=== PATIENT | female | born 1960 | race Caucasian/White ===

== ENCOUNTER → 2021-03-21 14:05 | Outpatient (BNVA) | payer MEDICARE, SELFPAY | PROVIDERS: Family Provider Family Medicine; Visit Provider Podiatrist Foot & Ankle Surgery | DX: M19.072 Primary osteoarthritis, left ankle and foot (principal) | CPT/HCPCS: 73630 ==

== ENCOUNTER → 2022-01-20 11:09 | Outpatient (BNVA) | payer MEDICARE, SELFPAY | PROVIDERS: Family Provider Family Medicine; PCP Family Medicine; Referring Provider Nurse Practitioner Family; Visit Provider Orthopaedic Surgery | DX: M16.12 Unilateral primary osteoarthritis, left hip (principal); M25.552 Pain in left hip | CPT/HCPCS: 73502; 99204 ==

== ENCOUNTER → 2022-01-20 12:10 | Outpatient (BNVA) | payer MEDICARE, SELFPAY | PROVIDERS: Family Provider Family Medicine; PCP Family Medicine; Visit Provider Podiatrist Foot & Ankle Surgery | DX: E11.8 Type 2 diabetes mellitus with unspecified complications (principal); I73.9 Peripheral vascular disease, unspecified; L60.3 Nail dystrophy; E11.42 Type 2 diabetes mellitus with diabetic polyneuropathy | CPT/HCPCS: 11721 ==

== ENCOUNTER 2022-03-02 16:35 | Observation (INO) | payer MEDICARE, SELFPAY ==
[2022-02-18 11:20] VITALS: BMI 43.0
[2022-02-18 12:17] LABS: INR 0.96 (0.8-1.2)
[2022-02-18 12:30] LABS: Alanine Aminotransferase 11 U/L (0-33); Albumin Level 4.5 g/dL (3.5-5.2); Alkaline Phosphatase 146 U/L (35-105); Aspartate Amino Transferase 13 U/L (0-32); Blood Urea Nitrogen 14 mg/dL (8-23); Calcium 9.7 mg/dL (8.5-10.5); Carbon Dioxide 27 mmol/L (22-29); Chloride 98 mmol/L (98-107); Globulin 3.1 g/dL (1.3-4.6); Glomerular Filtration Rate 73.2 mL/min (90-130); Glucose 107 mg/dL (65-115); Osmolality Calculated 287 mOsm/kg (285-295); Sodium 138 mmol/L (136-145); Total Bilirubin 0.4 mg/dL (0.15-1.2); Total Protein 7.6 g/dL (6.6-8.7)
--- NOTE | 2022-02-18 16:01 | ANES.PREANE2 ---
Pre-Anesthetic Assessment Height/Weight: Height 1.52 m Weight 99.79 kg Operation Date: 03/02/22 11:10 Proposed Procedures p left total hip arthroplasty/85750,M16.12(Left) - Jesus Aaron MD Familial anesthetic complications: none Was Beta Estuardo taken within 24 hours: N/A Was Clonidine taken within 24 hours: N/A Social Tobacco (smokes liz and cig) and No alcohol Exam alert, oriented x 3 and regular rate & rhythm Airway Submandibular: within normal limits Cervical ROM: within normal limits Mallampati: Class II Dentition: chipped Comments: Comments: hoarseness Pulmonary Chronic Obstructive Pulmonary Disease and Sleep Apnea CV/HEM Hypertension alpha-GAL Metabolic Diabetes Mellitus and Morbid Obesity Musc/skel Osteoarthritis/DJD Neuropsych Anxiety, Depression and Neuropathy Anesthetic Plan ASA status: 3 Anesthesia: Regional (specify below) (SAB) Medications/Allergies Home Medications Medication Instructions Recorded Confirmed Last Taken Type albuterol sulfate 2.5 mg inhalation Q4H PRN 03/21/21 02/18/22 Unknown History Shortness Of Breath alprazolam 1 mg tablet 1 mg PO TID PRN Anxiety 03/21/21 02/18/22 Unknown History budesonide-formoterol HFA 160 2 puff inhalation BID 03/21/21 02/18/22 Unknown History mcg-4.5 mcg/actuation aerosol inhaler (Symbicort) bupropion HCl 150 mg tablet,12 hr 150 mg PO BID 03/21/21 02/18/22 Unknown History sustained-release chlorzoxazone 500 mg tablet 500 mg PO QID 03/21/21 02/18/22 Unknown History eszopiclone 3 mg tablet 3 mg PO DAILY 03/21/21 02/18/22 Unknown History fluticasone propionate 50 1 spray intranasal DAILY 03/21/21 02/18/22 Unknown History mcg/actuation nasal spray,suspension gabapentin 600 mg tablet 600 mg PO TID 03/21/21 02/18/22 Unknown History lisinopril 10 mg tablet 10 mg PO DAILY 03/21/21 02/18/22 Unknown History pravastatin 20 mg tablet 20 mg PO DAILY 03/21/21 02/18/22 Unknown History tiotropium bromide 2.5 2 puff inhalation DAILY 03/21/21 02/18/22 Unknown History mcg/actuation mist for inhalation (Spiriva Respimat) medical marijuana 04/17/21 01/20/22 Unknown History dicyclomine 10 mg capsule 10 mg PO QID 01/20/22 02/18/22 Unknown History naproxen 500 mg tablet 500 mg PO BID 01/20/22 02/18/22 Unknown History epinephrine 0.3 mg/0.3 mL 0.3 mg IM Q4H PRN Anaphylaxis 02/18/22 02/18/22 Unknown History injection, auto-injector lactulose 10 gram/15 mL oral 10 g PO DAILY PRN Constipation 02/18/22 02/18/22 Unknown History solution (Enulose) meclizine 12.5 mg tablet 12.5 mg PO TID PRN Dizziness 02/18/22 02/18/22 Unknown History suvorexant 10 mg tablet (Belsomra) 10 mg PO BEDTIME 02/18/22 02/18/22 Unknown History Allergies Allergy/AdvReac Type Severity Reaction Status Date / Time metronidazole Allergy Mild rash Verified 01/20/22 12:13 tramadol Allergy Mild Ears Ring Verified 01/20/22 12:13 and sees black spots Alpha-Gal Allergy ALGY-Anaphy Verified 02/18/22 11:08 (Idsgysjly-Corcp-9,3-Gala laxis Milk Containing Products Allergy ALGY-Difficulty Verified 02/18/22 11:08 Swallowing PFSH Anesthesia Social History Smoking and tobacco status: never smoked Data Anesthesia : 02/18/22 11:48 BMP 02/18/22 11:48 Sodium 138 Potassium 4.0 Chloride 98 Carbon Dioxide 27 BUN 14 Creatinine 0.8 Glucose 107 Calcium 9.7 Liver Function 02/18/22 Range/Units 11:48 Total Bilirubin 0.4 (0.15-1.2) mg/dL AST 13 (0-32) U/L ALT 11 (0-33) U/L Alkaline Phosphatase 146 H (35-105) U/L Albumin 4.5 (3.5-5.2) g/dL Coags 02/18/22 11:48 PT 13.10 INR 0.96 Cardiac Studies: No Data to Display
[2022-03-02] VITALS (14 sets, daily range): BP systolic 112–179; BP diastolic 58–118; PULSE 64–88; RESP 16–24; TEMP 36.2–36.6; O2SAT 94–98
--- NOTE | 2022-03-02 10:53 | ANES.PAUD2 ---
Pre-Anesthetic Update Pre-Anesthetic Assessment: Date of Surgery/Procedure: 03/02/22 Proposed Procedure: Operation Date: 03/02/22 12:15 Proposed Procedures p left total hip arthroplasty/99845,M16.12(Left) - Jesus Aaron MD Any changes to Pre-Anesthetic Assessment?: No Last Intake: > 8hrs Exam: Pre-Anes Outpt Exam: alert, oriented x 3, clear to auscultation bilaterally and regular rate & rhythm Cardiac Studies: No Data to Display
[2022-03-02] MEDS: sodium chloride 0.9% 1,000 ML 30 ML IV (11:19)
[2022-03-02] MEDS: acetaminophen 1,000 MG/100 ML PIGGYBACK 400 MG IV (11:20)
--- NOTE | 2022-03-02 12:34 | P.HP_ITS ---
Same Day Surgery H&P Indication for Procedure/HPI DATE OF PROCEDURE: March 02, 2022 CHIEF COMPLAINT/INDICATIONFOR SURGICAL PROCEDURE: Osteoarthritis left hip here for left total knee arthroplasty PREOP DIAGNOSIS: Osteoarthritis left hip PLANNED PROCEDURE: Operation Date: 03/02/22 12:15 Proposed Procedures p left total hip arthroplasty/83489,M16.12(Left) - Jesus Aaron MD Ms. Merritt is a 61-year-old female comes in with a 3-month history of progressive left hip pain. Patient states pain has progressively gotten worse to the point she is unable to walk more than 50 feet.? Spends majority of her time in her wheelchair.? Patient rates pain at 10/10 in clinic today.? She states she underwent left total knee arthroplasty in 2017 and has done very well with that.? She states she used very few pain medications and was off of her walker recommendations.? [place] .? She states the pain is unbearable and she is unable to ambulate.? She is referred here for evaluation and potential treatment Medications/Allergies* Home Medications Medication Instructions Recorded Confirmed Type albuterol sulfate 2.5 mg inhalation Q4H PRN 03/21/21 03/02/22 History Shortness Of Breath alprazolam 1 mg tablet 1 mg PO TID PRN Anxiety 03/21/21 03/02/22 History budesonide-formoterol HFA 160 2 puff inhalation BID 03/21/21 03/02/22 History mcg-4.5 mcg/actuation aerosol inhaler (Symbicort) bupropion HCl 150 mg tablet,12 hr 150 mg PO BID 03/21/21 03/02/22 History sustained-release chlorzoxazone 500 mg tablet 500 mg PO QID 03/21/21 03/02/22 History eszopiclone 3 mg tablet (Lunesta) 3 mg PO DAILY 03/21/21 03/02/22 History fluticasone propionate 50 1 spray intranasal DAILY 03/21/21 03/02/22 History mcg/actuation nasal spray,suspension gabapentin 600 mg tablet 600 mg PO TID 03/21/21 03/02/22 History lisinopril 10 mg tablet 10 mg PO DAILY 03/21/21 03/02/22 History pravastatin 20 mg tablet 20 mg PO DAILY 03/21/21 03/02/22 History tiotropium bromide 2.5 2 puff inhalation DAILY 03/21/21 03/02/22 History mcg/actuation mist for inhalation (Spiriva Respimat) medical marijuana 04/17/21 01/20/22 History dicyclomine 10 mg capsule 10 mg PO QID 01/20/22 03/02/22 History naproxen 500 mg tablet 500 mg PO BID 01/20/22 03/02/22 History epinephrine 0.3 mg/0.3 mL 0.3 mg IM Q4H PRN Anaphylaxis 02/18/22 02/18/22 History injection, auto-injector lactulose 10 gram/15 mL oral 10 g PO DAILY PRN Constipation 02/18/22 03/02/22 History solution (Enulose) suvorexant 10 mg tablet (Belsomra) 10 mg PO BEDTIME 02/18/22 02/18/22 History Allergies/Adverse Reactions Allergy/AdvReac Type Severity Reaction Status Date / Time metronidazole Allergy Mild rash Verified 01/20/22 12:13 tramadol Allergy Mild Ears Ring Verified 01/20/22 12:13 and sees black spots Alpha-Gal Allergy ALGY-Anaphy Verified 02/18/22 11:08 (Kxqzdtafs-Zmqen-7,3-Gala laxis Milk Containing Products Allergy ALGY-Difficulty Verified 02/18/22 11:08 Swallowing Current Medications: Generic Name Dose Route Start Last Admin Trade Name Freq PRN Reason Stop Dose Admin Sodium Chloride 1,000 mls @ 30 mls/hr 03/02/22 11:00 03/02/22 11:19 Sodium Chloride 0.9% IV 03/03/22 10:59 30 mls/hr .Q24H DIONY Administration Pertinent History/Comorbid Conditions* Social History Smoking and tobacco status: never smoked Pertinent Exam Findings alert, oriented x 3, clear to auscultation bilaterally, regular rate & rhythm and operative site marked HIP, left No tenderness about left hip ?RANGE OF MOTION:? EXAMINED HIP ? Flexion: 90 ? Extrenal Rotation: 20 ? Internal Rotation: 0 Pain with all extremes of motion Crepitance felt in hip with motion MOTOR: Strong quadriceps hamstrings tibialis anterior and extensor houses longus strength SENSATION: Intact to light touch Recommendations Surgery/Procedure today Coding Level of Care Code Acute Integrated Circuit Layout Designer for Emerald Castillo
[2022-03-02] MEDS: ceFAZolin 2,000 MG in sodium chloride 0.9% (plus) 50 ML 100 MG IV ×2 (12:50→21:57)
[2022-03-02] MEDS: tranexamic acid 1,000 mg/10mL SDV 1000 MG IV (13:00)
--- NOTE | 2022-03-02 15:19 | XRR_ITS ---
PROCEDURE INFORMATION: Exam: XR Left Hip Exam date and time: 03/02/2022 4:11 PM Age: 61 years old Clinical indication: Device placement; Other: Left total hip arthroplasty; Prior surgery; Surgery date: Post-operative (0-2 days) TECHNIQUE: Imaging protocol: Radiologic exam of the Left hip. Views: 1 view hip with pelvis when performed. COMPARISON: CR XR hip LT 2-3V wo/w pel* [id number] 01/20/2022 11:09 AM FINDINGS: Bones/joints: The left femoral head and neck have been resected and a prosthesis placed. The bones and hardware are intact and in normal alignment. No fracture. Soft tissues: Soft tissue gas in the left hip, consistent with recent surgery. XR/XR hip LT 1V wo/w pel [id number] IMPRESSION: Left hip arthroplasty.
--- NOTE | 2022-03-02 15:22 | PM.OP ---
Operative Report Date of procedure: March 02, 2022 Pre-op diagnosis: Preop Diagnosis Osteoarthritis left hip Post-op diagnosis: same Post-op diagnosis: Same Procedure done: Left total hip arthroplasty Implants: 1) Shelly 46 mm Trident 2 solid back acetabular shell 2) Size 3 [place] 127 degree neck angle Accolade 2 stem 3} 22mm standard femoral head 4} C MDM metal liner Pathology: none sent Surgeon: Jesus Aaron Anesthesia: Nerve Block (Spinal) Estimated blood loss (mL): 300 Findings: The patient had severe degenerative changes of the left hip Condition: stable Disposition: PACU Procedure: The patient was taken to the operating room and anesthesia provided by the anesthesia service. The patient was placed in the lateral position on a pegboard. A timeout was performed. The patient was draped in the usual fashion. A 15 cm long incision was made beginning just proximal to the greater trochanter and extending posteriorly to a point just distal to the trochanter on the posterior border of the trochanter. Dissection was carried down with electrocautery through the subcutaneous fat to the fascia carlo which was divided proximally and distally with curved scissors. The anterior two thirds of the gluteus medius and minimus were elevated off the hip with electrocautery. The capsule was divided in a H-like fashion. The hip was dislocated and a neck cut made just above the level of the lesser trochanter. Exposure of the acetabulum was facilitated with the acetabular retractors. Remnants of labrum and peripheral osteophytes were removed with electrocautery and a rongeur. A reamer 2 mm under the size the femoral head was utilized to ream medially to the base of the palm and are. Reaming was then increased in 1 mm intervals until a healthy rim a trabecular bone was encountered. The rim was touched with the reamer the size of the final acetabular shell to be placed. A final Trident 2 acetabular cup of the same size as the final reaming was press-fit into place. The ADM liner was secured. Attention was then focused on the femur. The canal was localized with a canal finder. Broaching was then accomplished until a stable broach size was obtained. A trial reduction with the head and neck provided excellent stability. The wound was irrigated with saline and antibiotic solution. The final Shelly Accolade II stem was press-fit into place. The femoral head was placed and the hip was reduced. The hip was brought through range of motion and found to be free of impingement and stable. The anterior capsule was reapproximated with 1 Ethibond. The gluteus medius and minimus were repaired through bone with 5 Ethibond and reinforced with 1 Ethibond. The fascial carlo was closed with a running 0 Stratafix suture. Deep pelvic tissues were closed with 2-0 Stratafix and the skin with a running 4-0 l Stratafix. The skin was covered with a Prineo dressing and op site dressings.
[2022-03-02] MEDS: labetalol 5 mg/mL SDV 20mL 10 MG IVP (15:30)
--- NOTE | 2022-03-02 16:31 | ANE.PACU2 ---
Inpatient post-anesthesia follow up: Airway intact: Yes Vital signs: Temperature 97.2 F Pulse Rate 68 Respiratory Rate 18 Blood Pressure 122/72 Pulse Oximetry 98 Oxygen Delivery Me thod Room Air Oxygen Flow Rate 6 Fraction of Inspir ed Oxygen Hydration adequate: Yes Nausea and vomiting: No Pain level: 1 Mental status: Baseline
[2022-03-02] MEDS: sodium chloride 0.9% 1,000 ML 80 ML IV (16:56)
--- NOTE | 2022-03-02 18:08 | PC.NURSE ---
Patient has her home medications with her in her own pill box. Patient's is adamant about taking her home medications. Patient is A&Ox3. Respirations even and non-labored on room air. Patient denies any pain. Patient has refused any of the medications I have tired to give her. Patient is afraid she may have an allergic reaction to them.
--- NOTE | 2022-03-02 19:02 | PC.NURSE ---
Bedside report to Nany OZUNA at this time.
[2022-03-02] MEDS: HYDROcodone-acetaminophen 10-325 mg Tablet 1 TAB PO (21:57)
--- NOTE | 2022-03-02 22:30 | PC.NURSE ---
Patient's home medication Patient is becoming agitated, tearful and raising her voice, over her home medications not being given the way she takes them. This nurse sorted through patient's home medications because the patient was requesting to take them. This nurse informed the patient that in order for her to be able to take them, this nurse would have to take her medications to the pharmacy and have a label created in order for her medications to be scanned into our system. Patient agreed. During the time the patient's medications were in the pharmacy, the patient called her brother and her to call this nurse about patient's medications not being given. This nurse explained that the patient's medications were sent to pharmacy to have labels created for the medications and that she would be getting them back. Upon taking the medications back to the patient to administer meds, the patient became agitated that she was not getting three Xanax tonight and that this nurse had to clarify the Gabapentin order before administering. Patient states, My doctor, Dr. Rasheed told me I can take three of my Gabapentin in the morning and three of them in the evening instead of taking 4 tablets in the morning and 2 tablets in the evening per the prescription bottle. I also take three Xanax at night. The bottle says I can have three a day, I take them all at night. This nurse explained to the patient that I have to give the medication as ordered and it is one tablet every 8 hours as needed for her Xanax and the Gabapentin, I cannot give until the order is straightened out because it is currently ordered as one tablet three times a day and her prescription bottle is different. Patient stated, So you mean you're not going to give me my Gabapentin either. I shouldn't have said anything and should have gotten up and taken them on my own. I am not going to sleep tonight, I will keep every patient on this floor awake. I have to have my medication the way I take it. This nurse informed the patient that Dr. Rasheed was not her doctor while in the hospital, that she was admitted only under Dr. Aaron, her surgeon. This nurse would have to call Dr. Aaron for clarifications on her home medications. This nurse called the hat blocking operator whom tried to call Dr. Aaron twice and a voicemail was left.
--- NOTE | 2022-03-02 23:35 | PC.RESP ---
rt notified by nursing at 2330 that pt was needing help setting up her home cpap machine. rt immediately went to pts room to assist pt with set up. pt stated she did not use the humidity when asked. cpap placed on pt and confirmed working by pt.
[2022-03-03] VITALS (7 sets, daily range): BP systolic 150–177; BP diastolic 89–97; PULSE 74–85; RESP 18–24; TEMP 36.3–36.9; O2SAT 95–98
[2022-03-03] MEDS: ceFAZolin 2,000 MG in sodium chloride 0.9% (plus) 50 ML 100 MG IV ×2 (04:06→14:04)
[2022-03-03] MEDS: HYDROcodone-acetaminophen 10-325 mg Tablet 1 TAB PO ×2 (04:11→17:28)
[2022-03-03] MEDS: CELEcoxib 200 mg Capsule PO ×2 (04:11→17:29)
--- NOTE | 2022-03-03 04:35 | PC.NURSE ---
Pt upset: Pt called the nurse's station through the night to say that she was upset about not receiving her home medications as she takes them at home. Both her patient care nurse and check writer explained that nursing had to give medications as the Physician ordered. She said that she understood but that she was not happy about it. Later in the shift she put on her call light and check writer answered it. Pt cpap mask had come apart and she needed assistance in putting it back together. She appeared very upset and check writer asked what was wrong. Pt stated that she didn't feel like she was being cared for well. When asked why she felt that way she said I had to set up my cpap last night and had to lean over my bed which hurt, I have no water, my ice packs are not cold and I am not getting my medications the way I take them at home which is ridiculous, are you all even nurses? . Explained to the pt that nursing staff had to give medicine as the Physician ordered. Picked up the cup on her table which was full of water and showed it to the pt, assessed ice packs which were cold and had the pt feel them too. Asked the pt what we could do to make things better and she did not reply. Notified respiratory of pt complaint.
--- NOTE | 2022-03-03 04:50 | PC.RESP ---
rt called by nursing to come check pt home cpap due to pt stating she needed assistance with it at 0441. rt immediately went to pt room. pt stated mask kept coming apart. rt checked over mask and explained to pt that it was magnetic clips holding the mask secure and that they were working appropriately along with the rest of the mask. mask placed back on pt, no issues noted with machine or mask.
[2022-03-03 05:26] LABS: Hemoglobin 9.8 g/dL (11.5-15.3)
[2022-03-03] MEDS: sodium chloride 0.9% 1,000 ML 80 ML IV (06:08)
--- NOTE | 2022-03-03 07:24 | PM.PN ---
Subjective Subjective: Patient with expected pain. Do DC'd this morning. Up with therapy last night. Vitals/I&O/Wt Last Vital Signs Temp 97.7 F 03/03/22 05:22 Pulse 74 03/03/22 05:22 Resp 24 H 03/03/22 05:22 BP 154/95 03/03/22 05:22 Pulse Ox 96 03/03/22 05:22 O2 Del Method 03/02/22 16:47 O2 Flow Rate 6 03/02/22 15:18 03/02/22 03/03/22 03/03/22 22:59 06:59 14:59 Intake Total 2830 / 2980 1050 / 4030 Output Total 2575 / 2575 500 / 3075 Balance 255 / 405 550 / 955 Physical Exam Narrative: Left hip dressing clean and dry. Minimal swelling left thigh. Urinary Catheter Management: Do: Cath Placed During This Visit: yes, but has since been removed by the nurse Reason for Continuing Indwelling Catheter: Decision to DC Catheter Urinary Catheter Date of Insertion: 03/02/22 Urinary Catheter Time of Insertion: 13:00 Date Urinary Catheter Removed: 03/03/22 Time Urinary Catheter Discontinued: 06:07 Data : 03/03/22 05:03 02/18/22 11:48 A&P Assessment and plan (1) Status post left hip replacement: Continue to mobilize with therapy. Discharge home when independent with walker. Status: Acute Attestations Medical Necessity Statement*: Discharge home when independent with walker. Coding Level of Care Code Acute Breeder Service Technician for Emerald Castillo Diagnoses Status post left hip replacement Z96.642
--- NOTE | 2022-03-03 08:04 | PC.NURSE ---
Upon arrival this morning, I was informed of an issue overnight regarding patient and her home medications. Patient's home medications were taken and sent to the pharmacy for labeling, however at bedtime, patient requested 3 tablets of Alprazolam. Palak Haile LPN educated her on the Rx as it was written 1 tablet PO TID for anxiety. Patient stated that this isn't how she takes it at home . Palak Haile reported to Margret Garcia RN Charge Nurse and multiple attempts were made to contact Dr. Aaron for a change in order. No new orders were received at that time. Patient's presented to the floor this morning and requested patient's home medications to take them home with him. I provided him all medications from the locked medication cabinet and he states he will be taking them home with him. I rounded with this patient immediately following and she states that she became upset with staff overnight d/t not giving her medications like she takes them . I provided education on her ordered Rx and she states that she understands why and understands we were just following physician orders, however states Dr. Rasheed lets me take them how I want to and I take 3 tablets at bedtime and none all day long. She also inquired as to why Dr. Aaron wouldn't just change my prescription in the hospital. I explained that Dr. Aaron will only provide oversight to medications changed before and after surgery that is affected by surgery. She states she understands, however continues to appear upset. I informed her I would call and speak with Dr. Rasheed's office this morning and inquire about her current Rx. She verbalizes understanding. I spoke with Javi Palacio RN and provided her an update as well as Palak Shelton CNA and asked that she monitor VS and provide an update to nursing to continue to monitor if patient is taking OTC medications that may have been left in her room by her spouse before he left. 0810: I called and left a message with Dr. Rasheed's office to verify Alprazolam Rx. If no return call is received, will call back again later.
[2022-03-03] MEDS: aspirin 325 mg EC Tablet PO (10:36)
--- NOTE | 2022-03-03 10:46 | PC.NURSE ---
This nurse went into patient's room to administer morning medications. Patient stated she already took all her home medications earlier this AM. Patient states she took something for bloating and an antibiotic Patient was unable to name antibiotic and anti gas, she refuses to let nurse asses home medications. Patients home medications are in a pill emergency planner at the bedside. Patient reports that she did not take her BID Buspar this am because she reports she takes two at bedtime instead.
[2022-03-03 12:02] LABS: Glucose Point of Care 155 mg/dL (70-110)
[2022-03-03 16:41] LABS: Glucose Point of Care 116 mg/dL (70-110)
--- NOTE | 2022-03-03 17:28 | PM.DCS ---
Discharge Providers Date of Admission: 03/02/22 16:35 Date of Discharge: March 03, 2022 Attending Provider at Admission: Jesus Cannon MD Attending Provider at Discharge: Jesus Cannon MD Primary Care Provider: Marina Rasheed DO Diagnoses at Discharge Discharge Diagnosis (1) Status post left hip replacement: Status: Acute (2) Osteoarthritis of left hip: Status: Resolved Reason for Visit Reason for Visit: surgery Brief History: The patient is a 61-year-old female with a history of progressive left hip pain over the past 3 months and inability to bear weight. Radiographs revealed severe degenerative changes. She is admitted for left total hip arthroplasty. Hospital Course Hospital Course The patient tolerated surgery well. They remained hemodynamically stable. They was begun on aspirin and sequential compression dressing for DVT prophylaxis. The patient was mobilized with therapy beginning the day of surgery and by the first postoperative day independent with the walker. As the pain was adequately controlled and they were fully mobile they were discharged home. Physical Exam Narrative: On the day of discharge the hip incision was clean. The incision was free of drainage. They had no particular swelling about the thigh or distal. No distal neurovascular deficits were noted. Urinary Catheter Management: Do: Cath Placed During This Visit: yes, but has since been removed by the nurse Reason for Continuing Indwelling Catheter: Decision to DC Catheter Urinary Catheter Date of Insertion: 03/02/22 Urinary Catheter Time of Insertion: 13:00 Date Urinary Catheter Removed: 03/03/22 Time Urinary Catheter Discontinued: 06:07 Discharge Data Studies Completed and Pending Completed Studies During Hospitalization Category Date Time Status XR hip LT 1V wo/w pel [id number] Routine Exams 03/02/22 15:19 Completed Radiology Impressions Hip X-Ray 03/02/22 15:19 IMPRESSION: Left hip arthroplasty. Laboratory Results Hgb 9.8 g/dL (11.5-15.3) L 03/03/22 05:03 PT 13.10 SECONDS (12.1-14.9) 02/18/22 11:48 INR 0.96 (0.8-1.2) 02/18/22 11:48 Sodium 138 mmol/L (136-145) 02/18/22 11:48 Potassium 4.0 mmol/L (3.5-5.1) 02/18/22 11:48 Chloride 98 mmol/L (98-107) 02/18/22 11:48 Carbon Dioxide 27 mmol/L (22-29) 02/18/22 11:48 Anion Gap 17.0 (5-19) 02/18/22 11:48 BUN 14 mg/dL (8-23) 02/18/22 11:48 Creatinine 0.8 mg/dL (0.5-0.9) 02/18/22 11:48 GFR Calculation 73.2 mL/min (90-130) L 02/18/22 11:48 Glucose 107 mg/dL (65-115) 02/18/22 11:48 POC Glucose 116 mg/dL (70-110) H 03/03/22 16:32 Calculated Osmolality 287 mOsm/kg (285-295) 02/18/22 11:48 Calcium 9.7 mg/dL (8.5-10.5) 02/18/22 11:48 Total Bilirubin 0.4 mg/dL (0.15-1.2) 02/18/22 11:48 AST 13 U/L (0-32) 02/18/22 11:48 ALT 11 U/L (0-33) 02/18/22 11:48 Alkaline Phosphatase 146 U/L (35-105) H 02/18/22 11:48 Total Protein 7.6 g/dL (6.6-8.7) 02/18/22 11:48 Albumin 4.5 g/dL (3.5-5.2) 02/18/22 11:48 Globulin 3.1 g/dL (1.3-4.6) 02/18/22 11:48 Vitals Last Vital Signs Temp 98.2 F 03/03/22 15:51 Pulse 83 03/03/22 15:51 Resp 18 03/03/22 15:51 BP 150/92 03/03/22 15:51 Pulse Ox 96 03/03/22 15:51 O2 Del Method 03/03/22 15:51 O2 Flow Rate 6 03/02/22 15:18 Discharge Plan Discharge Patient Disposition: Home Condition: Stable Prescriptions: New hydrocodone-acetaminophen 10-325 mg Tablet 1 tab PO Q4H PRN (Reason: Moderate Pain) 7 Days Qty: 40 0RF aspirin 325 mg Tablet,Delayed Release (Dr/Ec) 325 mg PO DAILY 30 Days Qty: 30 0RF Continued Spiriva Respimat 2.5 mcg/actuation mist 1 puff inhalation DAILY budesonide-formoterol [Symbicort] 160-4.5 mcg/actuation HFA aerosol inhaler 3 puff inhalation BID chlorzoxazone 500 mg tablet 1,000 mg PO BID fluticasone propionate 50 mcg/actuation spray,suspension 1 spray intranasal DAILY PRN (Reason: Allergy Symptoms) Rx Instructions: administer into each nostril alprazolam 1 mg tablet 1 mg PO TID PRN (Reason: Anxiety) eszopiclone [Lunesta] 3 mg tablet 3 mg PO BEDTIME pravastatin 20 mg tablet 20 mg PO QPM albuterol sulfate 2.5 mg /3 mL (0.083 %) solution for nebulization 2.5 mg inhalation Q4H PRN (Reason: Shortness Of Breath) bupropion HCl 150 mg tablet sustained-release 12 hr 300 mg PO BEDTIME lisinopril 10 mg tablet 10 mg PO QAM naproxen 500 mg tablet 500 mg PO BID dicyclomine 10 mg capsule 10 mg PO BID Epi E-Z Pen 0.3 mg/0.3 mL Auto-Injector 0.3 mg IM Q4H PRN (Reason: Anaphylaxis) lactulose [Enulose] 10 gram/15 mL Solution 10 g PO DAILY PRN (Reason: Constipation) gabapentin 600 mg Tablet 1,800 mg PO BID Protonix 40 mg Tablet,Delayed Release (Dr/Ec) 40 mg PO BEDTIME Discharge Orders: Discharge Order (Routine); Ordered 03/03/22 Ordered By: Jesus Cannon Discharge Diet: Advance as tolerated Discharge Activity: Limit activity as instructed Patient Instructions: Opioid Safety Activity Restrictions/Additional Instructions: Okay to shower. No soaking incision in tub Apply FirstIce up to 20 min/hr for pain and swelling Take [place] 10 for breakthrough pain. Exercises per physical therapy. May weight-bear as tolerated on total hip arthroplasty IF HAVE ANY PROBLEMS OR QUESTIONS CALL HOSPITAL BUSINESS LAW PROFESSOR AT AND ASK TO HAVE DR. CANNON PAGELee. Discharge Attestations Time Spent in Discharge Care*: other Quality Metrics Clinical Quality Measures [ No reported AMI, CVA or VTE this stay] Coding Level of Care Code Acute Chg FW DC note Diagnoses Status post left hip replacement Z96.642 Osteoarthritis of left hip M16.12
== END 2022-03-03 19:07 | disposition home or self-care (01) ==
LOC: MEDSURG 17:00
PROVIDERS: Anesthesiology; Admitting Provider Orthopaedic Surgery; PCP Family Medicine; Visit Provider Orthopaedic Surgery
PROC: (CPT 27130; principal; 2022-03-02 11:55)
DX: M16.12 Unilateral primary osteoarthritis, left hip (principal); E11.40 Type 2 diabetes mellitus with diabetic neuropathy, unspecified; J44.9 Chronic obstructive pulmonary disease, unspecified; I10 Essential (primary) hypertension; E66.01 Morbid (severe) obesity due to excess calories; Z68.41 Body mass index [BMI] 40.0-44.9, adult; F17.210 Nicotine dependence, cigarettes, uncomplicated; G47.30 Sleep apnea, unspecified
CPT/HCPCS: 27130; 36415; 36416; 51702; 73501; 80053; 82962; 85018; 85610; 97110; 97116; 97161; 97165; 97530; 97535; C1713; C1776; G0378; J1100; J1200; J1580; J3010; J3490; J7030

== ENCOUNTER → 2022-03-17 13:29 | Outpatient (BNVA) | payer MEDICARE, SELFPAY | PROVIDERS: PCP Family Medicine; Visit Provider Nurse Practitioner Family | DX: Z96.642 Presence of left artificial hip joint (principal) | CPT/HCPCS: 99024 ==

== ENCOUNTER → 2022-04-14 11:03 | Outpatient (BNVA) | payer MEDICARE, SELFPAY | PROVIDERS: PCP Family Medicine; Visit Provider Orthopaedic Surgery | DX: Z96.642 Presence of left artificial hip joint (principal) | CPT/HCPCS: 73502; 99024 ==

== ENCOUNTER → 2022-04-16 09:51 | Outpatient (BNVA) | payer MEDICARE, SELFPAY | PROVIDERS: PCP Family Medicine; Visit Provider Podiatrist Foot & Ankle Surgery | DX: L60.0 Ingrowing nail (principal); E11.42 Type 2 diabetes mellitus with diabetic polyneuropathy; E11.8 Type 2 diabetes mellitus with unspecified complications; I73.9 Peripheral vascular disease, unspecified; L60.3 Nail dystrophy | CPT/HCPCS: 99214 ==

== ENCOUNTER → 2022-07-29 13:50 | Outpatient (BNVA) | payer MEDICARE, SELFPAY | PROVIDERS: PCP Family Medicine; Visit Provider Orthopaedic Surgery | DX: M17.11 Unilateral primary osteoarthritis, right knee (principal) | CPT/HCPCS: 73560; 73565; 99214 ==

== ENCOUNTER 2022-08-17 06:09 | Outpatient (CLI) | payer MEDICARE, SELFPAY ==
--- NOTE | 2022-08-17 06:30 | CT_ITS ---
WS: [id number] CT RIGHT KNEE, NONCONTRAST TECHNIQUE: Noncontrast CT of the RIGHT knee to include the RIGHT hip and ankle. CLINICAL INFORMATION: pre op planning COMPARISON: None. DLP: 953.[address] scans at [facility] use at least one of these dose optimization techniques: automated e xposure control; mA and/or kV adjustment per patient size (includes targeted exams where dose is matc hed to clinical indication); or iterative reconstruction. FINDINGS: Prior LEFT TKA. Advanced degenerative arthritis RIGHT knee worse medial joint compartment. Chondrocal cinosis. Hypertrophic changes along the joint line. Moderate suprapatellar effusion. Vascular calcifi cation. LEFT HERBERT. Moderate degenerative narrowing RIGHT hip. Calcified uterine fibroids. CT/CT knee RT RICH IMPRESSION: Images obtained for preoperative purposes.
== END 2022-08-17 06:10 | disposition home or self-care (01) ==
LOC: RAD 06:13
PROVIDERS: PCP Family Medicine; Visit Provider Orthopaedic Surgery
DX: M17.11 Unilateral primary osteoarthritis, right knee (principal)
CPT/HCPCS: 73700

== ENCOUNTER 2022-08-17 19:46 | Emergency (ER) | payer MEDICARE, SELFPAY ==
[2022-08-17 19:52] VITALS: BP 136/91; PULSE 89; RESP 20; TEMP 36.4; O2SAT 92; BMI 43.0
--- NOTE | 2022-08-17 20:03 | ED_ITS ---
HPI - Weakness General: Chief complaint: Weakness Stated complaint: Eyes Blurry and Cant feel hands\Fallen Few time Time Seen by Provider: 08/17/22 19:49 History of Present Illness: Ms. Merritt is a 61-year-old lady with history of COPD, diabetes with neuropathy presenting to the emergency department due to visual disturbance and bilateral arm numbness. She reports onset of symptoms gradually approximately 1 week ago noticing initially both hands being clumsy, weak, essentially unable to perform tasks and far more numb than baseline. This is minimally improved but not significantly. There is mild proximal radiation. Additionally she was on a trip and was unaware that she was driving erratically and swerving all over the road. She notes blurry vision now however was not initially aware of it. Intensity symptoms is moderate to severe. Course has persisted. No other specific changes in health, exacerbating, or alleviating factors identified. Onset (ago): day(s) Duration: progressively worsening Location: LUE, RUE, left hand, right hand and other Migration: none Severity: moderate Quality: numbness Relieving factors: none Exacerbating factors: none Associated symptoms: Reports other; Denies headache(s) Review of Systems General: Reports: 10 or more systems reviewed and unremarkable except in HPI and below Neuro: Denies: headache(s) PFSH ED PFSH: Medical History COPD exacerbation Social History Smoking and tobacco status: never smoked Physical Exam Const: COMMON NORMALS: patient oriented x3 and alert GENERAL APPEARANCE: cooperative and well developed HENMT: COMMON NORMALS: normocephalic and atraumatic HEAD & SCALP: normocephalic and atraumatic Eye: COMMON NORMALS: conjunctivae normal CONJUNCTIVA: Yes conjunctivae normal SCLERA: sclerae normal OTHER: Worse than 20/200 OD/OS/OU normal fluorescein IOP OS 15 OD 14 Neck/C-Spine: COMMON NORMALS: supple GENERAL: Yes trachea midline Resp: COMMON NORMALS: clear to auscultation bilaterally EFFORT & INSPECTION: Yes able to speak in complete sentences AUSCULTATION: clear to auscultation bilaterally Cardio: COMMON NORMALS: regular rate and regular rhythm RATE: regular rate RHYTHM: regular rhythm GI: COMMON NORMALS: Soft to palpation PALPATION: Yes Soft to palpation and No Tenderness to palpation present (GI) Extremity: GENERAL: Yes normal exam except as noted and No edema Neuro: COMMON NORMALS: patient oriented x3, CN's II-XII intact bilaterally, moves all extremities and no focal motor deficits; negative for no sensory deficits noted SENSORIUM/ORIENTATION: Yes alert and N o Orientation impaired Psych: COMMON NORMALS: mental status grossly normal and Normal thought process present THOUGHT PROCESS: Normal thought process present Course Vital Signs: Vital signs: Vital Signs Temperature 97.6 F 08/17/22 19:52 Pulse Rate 81 08/17/22 22:30 Respiratory Rate 18 08/17/22 20:15 Blood Pressure 133/76 08/17/22 22:30 Pulse Oximetry 95 08/17/22 22:30 Oxygen Delivery Me thod 08/17/22 22:30 MDM - Weakness Medical Decision Making 61-year-old lady presenting with neurologic complaint. Exam as above. Patient is nontoxic in appearance. Labs notable for mild leukocytosis, normal hemoglobin, mild thrombocytosis. Metabolic panel without acute electrolyte derangement to explain symptoms. Mildly elevated inflammatory markers. Negative head CT for acute pathology, did given duration of symptoms I would expect imaging findings on plain CT patient does not require advanced imaging at this time. No acute or severe pathology noted on cervical spine CT. No evidence of retro-orbital pathology on orbital CT. Knee x-ray negative. On clarification patient reports probably progressively worsening vision over the past 6 months. She denies history of diabetes, reports history of being on medication however no longer requires it per PCP. The exact etiology of patient's symptoms is unclear though does not appear to need hospitalization at this time. Plan to refer for neurology follow-up and instructed to follow-up with PCP. Precautions regarding driving discussed. The results of ED evaluation were discussed with the patient including prescriptions and/or symptomatic cares (if applicable) including appropriate and responsible use, followup plan, and return precautions. The patient verbalized understanding and felt safe for discharge. Medical Records I reviewed the patient's medical records. Lab Data I reviewed the patient's lab results. 08/17/22 20:20 08/17/22 20:20 Radiology Impressions Cervical Spine CT 08/17/22 20:27 IMPRESSION: 1. Multilevel spondylosis and degenerative disc disease, as described above. 2. Additional findings, as above. Head CT 08/17/22 20:27 IMPRESSION: 1. No CT evidence of acute intracranial pathology. 2. Additional findings, as above. Orbit CT 08/17/22 21:47 IMPRESSION: No acute findings. Laboratory Results WBC 13.5 10^3/uL (4.0-10.0) H 08/17/22 20:20 RBC 3.94 10^6/uL (4.1-5.3) L 08/17/22 20:20 Hgb 11.6 g/dL (11.5-15.3) 08/17/22 20:20 Hct 37.3 % (37.0-47.0) 08/17/22 20:20 MCV 94.7 fl (81-99) 08/17/22 20:20 MCH 29.4 pg (28.0-34.0) 08/17/22 20:20 MCHC 31.1 g/dL (30.0-36.0) 08/17/22 20:20 RDW 15.2 % (12.1-15.1) H 08/17/22 20:20 Plt Count 444 10^3/cmm (130-400) H 08/17/22 20:20 MPV 9.7 fL (7.4-10.4) 08/17/22 20:20 Neut % (Auto) 70.7 % 08/17/22 20:20 Lymph % (Auto) 18.8 % 08/17/22 20:20 [place] % (Auto) 6.6 % 08/17/22 20:20 Eos % (Auto) 2.8 % 08/17/22 20:20 Baso % (Auto) 0.7 % 08/17/22 20:20 Neut # (Auto) 9.55 10^3/uL (1.8-7.7) H 08/17/22 20:20 Lymph # (Auto) 2.5 10^3/uL (0.8-4.8) 08/17/22 20:20 [place] # (Auto) 0.9 10^3/uL (0.2-0.9) 08/17/22 20:20 Eos # (Auto) 0.4 10^3/uL (0.0-0.8) 08/17/22 20:20 Baso # (Auto) 0.1 10^3/uL (0.0-0.1) 08/17/22 20:20 Nucleated RBC % (auto) 0 % 08/17/22 20:20 Nucleated RBCs # 0.0 /100WBC 08/17/22 20:20 ESR 26 mm/hr (0-15) H 08/17/22 20:20 Sodium 141 mmol/L (136-145) 08/17/22 20:20 Potassium 3.6 mmol/L (3.5-5.1) 08/17/22 20:20 Chloride 101 mmol/L (98-107) 08/17/22 20:20 Carbon Dioxide 29 mmol/L (22-29) 08/17/22 20:20 Anion Gap 14.6 (5-19) 08/17/22 20:20 BUN 8 mg/dL (8-23) 08/17/22 20:20 Creatinine 0.8 mg/dL (0.5-0.9) 08/17/22 20:20 GFR Calculation 73.2 mL/min (90-130) L 08/17/22 20:20 Glucose 162 mg/dL (65-115) H 08/17/22 20:20 POC Glucose 118 mg/dL (70-110) H 08/17/22 21:31 Calculated Osmolality 294 mOsm/kg (285-295) 08/17/22 20:20 Calcium 9.1 mg/dL (8.5-10.5) 08/17/22 20:20 Total Bilirubin 0.2 mg/dL (0.15-1.2) 08/17/22 20:20 AST 14 U/L (0-32) 08/17/22 20:20 ALT 13 U/L (0-33) 08/17/22 20:20 Alkaline Phosphatase 95 U/L (35-105) 08/17/22 20:20 C-Reactive Protein 25.9 mg/L (0.0-4.9) H 08/17/22 20:20 NT-Pro-B Natriuret Pep 252 pg/mL (0-125) H 08/17/22 20:20 Total Protein 6.4 g/dL (6.6-8.7) L 08/17/22 20:20 Albumin 3.7 g/dL (3.5-5.2) 08/17/22 20:20 Globulin 2.7 g/dL (1.3-4.6) 08/17/22 20:20 Vitamin B12 310 pg/mL (232-1245) 08/17/22 20:20 Folate 7.9 ng/mL (4.8-37.3) 08/17/22 20:20 TSH 1.89 uIU/mL (0.27-4.20) 08/17/22 20:20 RPR Nonreactive (Nonreactive) 08/17/22 20:20 Discharge Plan Discharge Patient Disposition: Home Clinical Impression: Blurred vision, Bilateral arm weakness Condition: Stable Prescriptions: No Action Spiriva Respimat 2.5 mcg/actuation mist 1 puff inhalation DAILY budesonide-formoterol [Symbicort] 160-4.5 mcg/actuation HFA aerosol inhaler 3 puff inhalation BID chlorzoxazone 500 mg tablet 1,000 mg PO BID fluticasone propionate 50 mcg/actuation spray,suspension 1 spray intranasal DAILY PRN (Reason: Allergy Symptoms) Rx Instructions: administer into each nostril alprazolam 1 mg tablet 1 mg PO TID PRN (Reason: Anxiety) eszopiclone [Lunesta] 3 mg tablet 3 mg PO BEDTIME pravastatin 20 mg tablet 20 mg PO QPM albuterol sulfate 2.5 mg /3 mL (0.083 %) solution for nebulization 2.5 mg inhalation Q4H PRN (Reason: Shortness Of Breath) lisinopril 10 mg tablet 10 mg PO QAM dicyclomine 10 mg capsule 10 mg PO BID epinephrine 0.3 mg/0.3 mL Auto-Injector 0.3 mg IM Q4H PRN (Reason: Anaphylaxis) lactulose [Enulose] 10 gram/15 mL Solution 10 g PO DAILY PRN (Reason: Constipation) gabapentin 600 mg Tablet 1,800 mg PO BID pantoprazole [Protonix] 40 mg Tablet,Delayed Release (Dr/Ec) 20 mg PO BEDTIME Discharge Orders: Discharge ED (Routine); Ordered 08/17/22 Ordered By: Amish Baxter Referrals: Marina Rasheed DO [Primary Care Provider] - Discharge Diet: Usual diet Discharge Activity: Resume usual activity Patient Instructions: Paresthesia (ED), Blurred Vision (ED) Activity Restrictions/Additional Instructions: Thank you for visiting the emergency department. You were seen and evaluated for bilateral hand concerns and blurry vision. The exact cause of your symptoms is unclear though does not appear to need hospitalization at this time. I will message case management for follow-up with neurology, I will also order an outpatient MRI, I will also message case management for follow-up with ophthalmology. Please follow-up with your primary care provider. Return to the emergency department for anything that you are concerned about and feel needs emergency department evaluation. Coding Level of Care Code ED Day Care Director for Emerald Castillo
[2022-08-17 20:15] VITALS: BP 132/72; PULSE 91; RESP 18; O2SAT 92
--- NOTE | 2022-08-17 20:27 | CTR_ITS ---
PROCEDURE INFORMATION: Exam: CT Cervical Spine Without Contrast Exam date and time: 08/17/2022 8:47 PM Age: 61 years old Clinical indication: Patient HX: C/O bilateral hand numbness. No recent injury. ; Additional info: Bilateral arm numbness TECHNIQUE: Imaging protocol: Computed tomography of the cervical spine without contrast. Axial, coronal and sagittal reformatted images were created and reviewed. Radiation optimization: All CT scans at this facility use at least one of these dose optimization techniques: automated exposure control; mA and/or kV adjustment per patient size (includes targeted exams where dose is matched to clinical indication); or iterative reconstruction. REPORTING DATA: Count of CT and Cardiac NM exams in prior 12 months: This patient has received 2 known CTs and 0 known cardiac nuclear medicine studies in the 12 months prior to the current study. COMPARISON: CT cervical spin wo con* [id number] 02/09/2018 11:23 AM RADIATION DOSE METRICS: Total DLP (mGy-cm): 442.67 FINDINGS: Bones/joints: Osteopenia. Straightening of the normal cervical lordosis. No CT evidence of acute fracture, dislocation or subluxation. Mild anterolisthesis of C3 on C4 and C4 on C5. Alignment otherwise anatomic. Mild dextroscoliosis. Vertebral body heights maintained. Multilevel degenerative changes, characterized by disc space narrowing, osteophytosis and uncovertebral and facet joint hypertrophy. Mild multilevel neural foraminal narrowing, most pronounced at C4-C5 on the right and C5-C6 on the left. No significant spinal stenosis. Lungs: Grossly unremarkable. Soft tissues: Grossly unremarkable. CT/CT cervical spin wo con* [id number] IMPRESSION: 1. Multilevel spondylosis and degenerative disc disease, as described above. 2. Additional findings, as above.
--- NOTE | 2022-08-17 20:27 | CTR_ITS ---
PROCEDURE INFORMATION: Exam: CT Head Without Contrast Exam date and time: 08/17/2022 8:41 PM Age: 61 years old Clinical indication: Visual disturbance; Patient HX: C/O blurry vision primarily to RT eye. No recent injury. TECHNIQUE: Imaging protocol: Computed tomography of the head without contrast. Axial, coronal and sagittal reformatted images were created and reviewed. Radiation optimization: All CT scans at this facility use at least one of these dose optimization techniques: automated exposure control; mA and/or kV adjustment per patient size (includes targeted exams where dose is matched to clinical indication); or iterative reconstruction. REPORTING DATA: Count of CT and Cardiac NM exams in prior 12 months: This patient has received 2 known CTs and 0 known cardiac nuclear medicine studies in the 12 months prior to the current study. COMPARISON: CT head wo con* [id number] 02/09/2018 11:19 AM RADIATION DOSE METRICS: Total DLP (mGy-cm): 1100.18 FINDINGS: Brain: Subtle, patchy areas of hypoattenuation in the periventricular and subcortical white matter, nonspecific but suggestive of mild chronic small vessel ischemic disease. No CT evidence of acute intracranial hemorrhage or acute territorial infarction. No significant mass effect or midline shift. Basal cisterns patent. Cerebral ventricles: Prominence of the cortical sulci, cisterns and ventricular system, consistent with cerebral and cerebellar volume loss. Paranasal sinuses: Mild ethmoid mucosal thickening. Right sphenoid sinus polyp versus mucous retention cyst. No fluid levels. Mastoid air cells: Minimal opacification of the right mastoid air cells. Bones/joints: No acute osseous abnormality. Soft tissues: Grossly unremarkable. Vasculature: Calcific atherosclerotic disease in the cavernous internal carotid arteries, as well as the vertebro-basilar system. CT/CT head wo con* [id number] IMPRESSION: 1. No CT evidence of acute intracranial pathology. 2. Additional findings, as above.
[2022-08-17 20:53] LABS: Basophils # 0.1 10^3/uL (0.0-0.1); Basophils % 0.7 %; Eosinophils # 0.4 10^3/uL (0.0-0.8); Eosinophils % 2.8 %; Hematocrit 37.3 % (37.0-47.0); Hemoglobin 11.6 g/dL (11.5-15.3); Lymphocytes # 2.5 10^3/uL (0.8-4.8); Lymphocytes % 18.8 %; Mean Corpuscular HGB Conc 31.1 g/dL (30.0-36.0); Mean Corpuscular Hemoglobin 29.4 pg (28.0-34.0); Mean Corpuscular Volume 94.7 fl (81-99); Mean Platelet Volume 9.7 fL (7.4-10.4); Monocytes # 0.9 10^3/uL (0.2-0.9); Monocytes % 6.6 %; Neutrophils # 9.55 10^3/uL (1.8-7.7); Neutrophils % 70.7 %; Nucleated Red Blood Cells % 0 %; Platelet Count 444 10^3/cmm (130-400); Red Blood Count 3.94 10^6/uL (4.1-5.3); Red Cell Distribution Width 15.2 % (12.1-15.1); White Blood Count 13.5 10^3/uL (4.0-10.0)
[2022-08-17 21:04] VITALS: BP 107/67; PULSE 88; O2SAT 93
[2022-08-17 21:06] LABS: Erythrocyte Sedimentation Rate 26 mm/hr (0-15)
[2022-08-17 21:38] LABS: Glucose Point of Care 118 mg/dL (70-110)
--- NOTE | 2022-08-17 21:47 | CTR_ITS ---
PROCEDURE INFORMATION: Exam: CT Orbits With Contrast Exam date and time: 08/17/2022 10:05 PM Age: 61 years old Clinical indication: Visual changes or disturbances; Patient HX: C/O blurred vision primarily to RT eye. Negative head CT. ; Additional info: Progressive vision loss <1 week TECHNIQUE: Imaging protocol: Computed tomography of the orbits with contrast. Radiation optimization: All CT scans at this facility use at least one of these dose optimization techniques: automated exposure control; mA and/or kV adjustment per patient size (includes targeted exams where dose is matched to clinical indication); or iterative reconstruction. Contrast material: OMNI 350; Contrast volume: 100 ml; Contrast route: INTRAVENOUS (IV); REPORTING DATA: Count of CT and Cardiac NM exams in prior 12 months: This patient has received 3 known CTs and 0 known cardiac nuclear medicine studies in the 12 months prior to the current study. COMPARISON: CT head wo con* [id number] 08/17/2022 8:41 PM RADIATION DOSE METRICS: Total DLP (mGy-cm): 325.58 FINDINGS: Paranasal sinuses: Normal. No air-fluid levels. Orbital cavities: Orbits are normal. Globes are unremarkable. Bones/joints: No acute fracture. Soft tissues: No significant facial soft tissue swelling. CT/CT orbit BI w con [id number] IMPRESSION: No acute findings.
[2022-08-17 21:53] LABS: Alanine Aminotransferase 13 U/L (0-33); Albumin Level 3.7 g/dL (3.5-5.2); Alkaline Phosphatase 95 U/L (35-105); Anion Gap 14.6 (5-19); Aspartate Amino Transferase 14 U/L (0-32); Blood Urea Nitrogen 8 mg/dL (8-23); C Reactive Protein 25.9 mg/L (0.0-4.9); Calcium 9.1 mg/dL (8.5-10.5); Carbon Dioxide 29 mmol/L (22-29); Chloride 101 mmol/L (98-107); Globulin 2.7 g/dL (1.3-4.6); Glomerular Filtration Rate 73.2 mL/min (90-130); Glucose 162 mg/dL (65-115); NT Pro B Type Natriuretic Pept 252 pg/mL (0-125); Osmolality Calculated 294 mOsm/kg (285-295); Potassium 3.6 mmol/L (3.5-5.1); Sodium 141 mmol/L (136-145); Thyroid Stimulating Hormone 1.89 uIU/mL (0.27-4.20); Total Bilirubin 0.2 mg/dL (0.15-1.2); Total Protein 6.4 g/dL (6.6-8.7)
[2022-08-17] MEDS: iohexol 350 mg/mL 500 mL Btl (per mL) IV (22:15)
[2022-08-17 22:30] VITALS: BP 133/76; PULSE 81; O2SAT 95
[2022-08-17] MEDS: tetracaine 0.5% Op Soln 4 mL Btl 1 DROP EYE-BOTH (22:59)
[2022-08-17] MEDS: fluorescein 1 mg Strip EYE-BOTH (22:59)
[2022-08-17 23:50] LABS: Rapid Plasma Reagin Syphilis Nonreactive (Nonreactive)
[2022-08-17 23:52] LABS: Folate Level 7.9 ng/mL (4.8-37.3); Vitamin B12 310 pg/mL (232-1245)
--- NOTE | 2022-08-18 10:25 | DCPLANNER ---
Addendum entered by Arlette Valentine 08/27/22 07:53: This appointment was rescheduled Addendum entered by Arlette Valentine 08/21/22 07:59: Patient has a follow up appointment scheduled for Friday, August 26, 2022 at 10:[address] Monson at neurology. Clinic will call patient with appointment information. Original Note: labor relations manager had message to schedule a follow up appointment for patient with neurology. labor relations manager sent patients information to the front office staff at neurology. Patients information will be printed and reviewed. Clinic will call patient with appointment information.
--- NOTE | 2022-08-18 10:27 | DCPLANNER ---
Addendum entered by Arlette Valentine 08/21/22 11:20: Clinic did receive patients information. Original Note: zone manager had message to refer patient to ophthalmology. zone manager faxed patients information to the office of Dr. Martin. Patients information will be reviewed and clinic will call patient with appointment information.
--- NOTE | 2022-08-19 11:16 | DCPLANNER ---
Addendum entered by Arlette Valentine 09/16/22 14:55: Patient had an MRI scheduled - patient did attend appointment Addendum entered by Arlette Valentine 08/26/22 10:54: Patient has an MRI scheduled for Thursday September 15, 2022 at 10:15 - centralized scheduling will call patient with appointment information. Original Note: capacity manager had message to schedule an outpatient MRI for patient. capacity manager faxed signed order to centralized scheduling, who will call patient with appointment information.
== END 2022-08-17 23:59 | disposition home or self-care (01) ==
PROVIDERS: Emergency Provider Emergency Medicine; PCP Family Medicine
DX: H53.8 Other visual disturbances (principal); R53.1 Weakness; J44.9 Chronic obstructive pulmonary disease, unspecified
CPT/HCPCS: 36416; 70450; 70481; 72125; 80053; 82607; 82746; 82962; 83880; 84443; 85025; 85651; 86140; 86592; 99285; Q9967

== ENCOUNTER → 2022-08-20 14:47 | Outpatient (BNVA) | payer MEDICARE, SELFPAY | PROVIDERS: PCP Family Medicine; Visit Provider Podiatrist Foot & Ankle Surgery | DX: E11.8 Type 2 diabetes mellitus with unspecified complications (principal); I73.9 Peripheral vascular disease, unspecified; L60.3 Nail dystrophy; E11.42 Type 2 diabetes mellitus with diabetic polyneuropathy | CPT/HCPCS: 11721 ==

== ENCOUNTER → 2022-08-26 09:40 | Outpatient (BNVA) | payer MEDICARE, MEDICAID, SELFPAY | PROVIDERS: PCP Family Medicine; Referring Provider Emergency Medicine; Visit Provider Specialist | DX: H53.8 Other visual disturbances (principal); E11.42 Type 2 diabetes mellitus with diabetic polyneuropathy; M47.12 Other spondylosis with myelopathy, cervical region | CPT/HCPCS: 99205 ==

== ENCOUNTER 2022-08-31 13:52 | Observation (INO) | payer MEDICARE, SELFPAY ==
[2022-08-24 10:48] VITALS: BMI 43.0
[2022-08-24 11:15] LABS: Anion Gap 15.2 (5-19); Blood Urea Nitrogen 8 mg/dL (8-23); Calcium 9.3 mg/dL (8.5-10.5); Carbon Dioxide 29 mmol/L (22-29); Chloride 104 mmol/L (98-107); Glomerular Filtration Rate 85.4 mL/min (90-130); Glucose 98 mg/dL (65-115); Osmolality Calculated 296 mOsm/kg (285-295); Potassium 4.2 mmol/L (3.5-5.1); Sodium 144 mmol/L (136-145)
--- NOTE | 2022-08-24 17:08 | ANES.PREANE2 ---
Pre-Anesthetic Assessment Height/Weight: Height 1.52 m Weight 99.79 kg Preop Diagnosis: Osteoarthritis left hip Operation Date: 08/31/22 09:50 Proposed Procedures p right total knee makoplasty/ 73867,M17.11(Right) - Jesus Aaron MD Familial anesthetic complications: none Was Beta Estuardo taken within 24 hours: N/A Was Clonidine taken within 24 hours: N/A Social Tobacco (liz) and No alcohol Exam alert, oriented x 3 and regular rate & rhythm Airway Submandibular: within normal limits Cervical ROM: within normal limits Mallampati: Class II Dentition: chipped Pulmonary Chronic Obstructive Pulmonary Disease CV/HEM Hypertension GI Gastroesophageal Reflux Disease Metabolic Diabetes Mellitus, Hyperlipidemia and Morbid Obesity Anesthetic Plan ASA status: 3 Anesthesia: Regional (specify below) (SAB with adductor blk) Other: alpha-GAL Medications/Allergies Home Medications Medication Instructions Recorded Confirmed Last Taken Type albuterol sulfate 2.5 mg/3 mL 2.5 mg inhalation Q4H PRN 03/21/21 08/24/22 08/24/22 History (0.083 %) solution for nebulization Shortness Of Breath alprazolam 1 mg tablet 1 mg PO TID PRN Anxiety 03/21/21 08/24/22 08/24/22 History budesonide-formoterol HFA 160 3 puff inhalation BID 03/21/21 08/24/22 08/24/22 History mcg-4.5 mcg/actuation aerosol inhaler (Symbicort) chlorzoxazone 500 mg tablet 1,000 mg PO BID 03/21/21 08/24/22 08/24/22 History eszopiclone 3 mg tablet (Lunesta) 3 mg PO BEDTIME 03/21/21 08/24/22 08/24/22 History fluticasone propionate 50 1 spray intranasal DAILY PRN 03/21/21 08/24/22 08/24/22 History mcg/actuation nasal Allergy Symptoms spray,suspension lisinopril 10 mg tablet 10 mg PO QAM 03/21/21 08/24/22 08/24/22 History pravastatin 20 mg tablet 20 mg PO QPM 03/21/21 08/24/22 08/24/22 History tiotropium bromide 2.5 1 puff inhalation DAILY 03/21/21 08/24/22 08/24/22 History mcg/actuation mist for inhalation (Spiriva Respimat) dicyclomine 10 mg capsule 10 mg PO BID 01/20/22 08/24/22 08/24/22 History epinephrine 0.3 mg/0.3 mL 0.3 mg IM Q4H PRN Anaphylaxis 02/18/22 08/24/22 Unknown History injection, auto-injector lactulose 10 gram/15 mL oral 10 g PO DAILY PRN Constipation 02/18/22 08/24/22 08/24/22 History solution (Enulose) gabapentin 600 mg tablet 1,800 mg PO BID 03/03/22 08/24/22 08/24/22 History pantoprazole 40 mg tablet,delayed 40 mg PO BEDTIME 03/03/22 08/24/22 08/24/22 History release (Protonix) hydrocodone 5 mg-acetaminophen 325 1 tab PO Q4H PRN pain 7 days #30 04/15/22 08/24/22 08/24/22 Rx mg tablet tabs Allergies Allergy/AdvReac Type Severity Reaction Status Date / Time metronidazole Allergy Mild rash Verified 08/24/22 10:26 tramadol Allergy Mild Ears Ring Verified 08/24/22 10:26 and sees black spots Alpha-Gal Allergy ALGY-Anaphy Verified 08/24/22 10:26 (Rmlfevral-Nwkdy-1,3-Gala laxis Milk Containing Products Allergy ALGY-Difficulty Verified 08/24/22 10:26 Swallowing PFSH Anesthesia Medical History COPD exacerbation Social History Smoking and tobacco status: never smoked Data Anesthesia 08/24/22 10:26 BMP 08/24/22 10:26 Sodium 144 Potassium 4.2 Chloride 104 Carbon Dioxide 29 BUN 8 Creatinine 0.7 Glucose 98 Calcium 9.3 Cardiac Studies: No Data to Display
[2022-08-31] VITALS (21 sets, daily range): BP systolic 119–205; BP diastolic 70–137; PULSE 68–110; RESP 16–22; TEMP 36.3–37.2; O2SAT 86–96
[2022-08-31] MEDS: sodium chloride 0.9% 1,000 ML 30 ML IV (09:05)
--- NOTE | 2022-08-31 09:40 | P.ANESUD_ITS ---
Pre-Anesthetic Update Pre-Anesthetic Assessment: Date of Surgery/Procedure: 08/31/22 Preop Alyssa gnosis: Osteoarthritis right knee Proposed Procedure: Operation Date: 08/31/22 10:25 Proposed Procedures p right total knee makoplasty/ 49929,M17.11(Right) - Jessu Aaron MD Any changes to Pre-Anesthetic Assessment?: No Last Intake: Intake Last Liquid Date 08/30/22 Last Liquid Time 18:00 Last Solid Date 08/30/22 Last Solid Time 14:00 Vitals: Temperature 98 F 08/31/22 09:00 Temperature Source Temporal Artery S can 08/31/22 09:00 Pulse Rate 90 08/31/22 09:00 Respiratory Rate 18 08/31/22 09:00 Blood Pressure 163/103 08/31/22 09:00 Blood Pressure Inés n 123 08/31/22 09:00 Pulse Oximetry 95 08/31/22 09:00 Oxygen Delivery Me thod 08/31/22 09:00 Exam: Pre-Anes Outpt Exam: alert, oriented x 3, clear to auscultation bilaterally and regular rate & rhythm Cardiac Studies: No Data to Display
--- NOTE | 2022-08-31 09:40 | ANES.PROC ---
Anesthesia Procedures Procedure/Date: 08/31/22 Nerve Block ^: Nerve Block 1: Main Anesthesia: spinal anesthesia block Time Out Performed: Yes Consent: requested by attending/covering physician, from patient, from other, risks and benefits reviewed and patient agrees to proceed Nerve block location: adductor canal (R) Anesthesia monitors applied: pulse oximetry, EKG, BP cuff and oxygen Nerve block position: supine Anesthetic Used: ropivicaine 0.5% (30 ml) and with decadron ( 4mg) Ultrasound used to: recognize landmarks and visualize and ID femerol nerve Nerve Stimulator Used?: No Interscalene/Femoral BLK: 4 stimuplex 21 g needle used for position and inplane approach, visualize local anesthetic spread and no vascular puncture identified Injection: neg aspiration of heme Patient Tolerated Procedure: well and no complications Complications: none
[2022-08-31] MEDS: oxyCODONE 20 mg ER (12 HR) Tablet PO (10:00)
--- NOTE | 2022-08-31 10:09 | P.HP_ITS ---
Same Day Surgery H&P Indication for Procedure/HPI DATE OF PROCEDURE: August 31, 2022 CHIEF COMPLAINT/INDICATIONFOR SURGICAL PROCEDURE: Osteoarthritis right knee here for total knee arthroplasty PREOP DIAGNOSIS: Osteoarthritis right knee PLANNED PROCEDURE: Operation Date: 08/31/22 10:25 Proposed Procedures p right total knee makoplasty/ 03907,M17.11(Right) - Jesus Aaron MD 61 year old female patient here for evaluation of her right total knee arthroplasty. Patient states that she has had pain for several years.? She sta marisela the pain has become progressively worse to the point where it is something she does not wish to deal with.? She pain in the medial and lateral knee. She has pain with prolonged standing, walking, and sitting. She states that she has resulted to using a walker to assist in ambulation. She reports that she is unable to ambulate stairs. She reports that she has previusly taken anti-inflammatories for pain/discomfort. She has a history of a left HERBERT, which she has recovered very well from.? States she is resorted to taking a few of the hydrocodone leftover from that left total hip arthroplasty to help with her pain.? She has has left TKA whch she recovered well from.? He did very well with her left total hip and wishes to proceed with right knee surgery Medications/Allergies* Home Medications Medication Instructions Recorded Confirmed Type albuterol sulfate 2.5 mg/3 mL 2.5 mg inhalation Q4H PRN 03/21/21 08/31/22 History (0.083 %) solution for nebulization Shortness Of Breath alprazolam 1 mg tablet 1 mg PO TID PRN Anxiety 03/21/21 08/31/22 History budesonide-formoterol HFA 160 3 puff inhalation BID 03/21/21 08/31/22 History mcg-4.5 mcg/actuation aerosol inhaler (Symbicort) chlorzoxazone 500 mg tablet 1,000 mg PO BID 03/21/21 08/31/22 History eszopiclone 3 mg tablet (Lunesta) 3 mg PO BEDTIME 03/21/21 08/31/22 History fluticasone propionate 50 1 spray intranasal DAILY PRN 03/21/21 08/31/22 History mcg/actuation nasal Allergy Symptoms spray,suspension lisinopril 10 mg tablet 10 mg PO QAM 03/21/21 08/31/22 History pravastatin 20 mg tablet 20 mg PO QPM 03/21/21 08/31/22 History tiotropium bromide 2.5 1 puff inhalation DAILY 03/21/21 08/31/22 History mcg/actuation mist for inhalation (Spiriva Respimat) dicyclomine 10 mg capsule 10 mg PO BID 01/20/22 08/31/22 History epinephrine 0.3 mg/0.3 mL 0.3 mg IM Q4H PRN Anaphylaxis 02/18/22 08/31/22 History injection, auto-injector lactulose 10 gram/15 mL oral 10 g PO DAILY PRN Constipation 02/18/22 08/31/22 History solution (Enulose) gabapentin 600 mg tablet 1,800 mg PO BID 03/03/22 08/31/22 History pantoprazole 40 mg tablet,delayed 20 mg PO BEDTIME 03/03/22 08/31/22 History release (Protonix) Allergies/Adverse Reactions Allergy/AdvReac Type Severity Reaction Status Date / Time metronidazole Allergy Mild rash Verified 08/31/22 09:02 tramadol Allergy Mild Ears Ring Verified 08/31/22 09:02 and sees black spots Alpha-Gal Allergy ALGY-Anaphy Verified 08/31/22 09:02 (Ixefhjkcy-Tphdf-4,3-Gala laxis Milk Containing Products Allergy ALGY-Difficulty Verified 08/31/22 09:02 Swallowing Current Medications: Generic Name Dose Route Start Last Admin Trade Name Freq PRN Reason Stop Dose Admin Sodium Chloride 1,000 mls @ 30 mls/hr 08/31/22 08:45 08/31/22 09:05 Sodium Chloride 0.9% IV 09/01/22 08:44 30 mls/hr .Q24H DIONY Administration Pertinent History/Comorbid Conditions* Medical History (Updated 08/26/22 @ 11:49 by Shayy Monson MD) COPD exacerbation Social History Smoking and tobacco status: never smoked Pertinent Exam Findings alert, oriented x 3, clear to auscultation bilaterally, regular rate & rhythm and operative site marked RIGHT KNEE Moderate effusion Has tenderness over the medial joint line and slight varus alignment of the leg.? Motion is from full extension to 120 degrees With a palpable right dorsalis pedis pulse MOTOR: Strong quadriceps hamstrings tibialis anterior and extensor houses longus strength SENSATION: Intact to light touch Recommendations Surgery/Procedure today Coding Level of Care Code Acute Code for Chg Fwd
[2022-08-31] MEDS: ceFAZolin 2,000 MG in sodium chloride 0.9% (plus) 50 ML 100 MG IV ×2 (11:06→19:05)
[2022-08-31] MEDS: tranexamic acid 1,000 mg/10mL SDV 1000 MG IV (12:00)
[2022-08-31] MEDS: EPINEPHrine 1 mg/mL INJ XX (12:45)
[2022-08-31] MEDS: tranexamic acid 1,000 mg/10mL SDV 1000 MG XX (12:46)
[2022-08-31] MEDS: sodium chloride 0.9% 100 mL Bag XX (12:46)
[2022-08-31] MEDS: ketorolac 30 mg/mL INJ XX (12:46)
--- NOTE | 2022-08-31 13:12 | PM.OP ---
Operative Report Date of procedure: August 31, 2022 Pre-op diagnosis: Preop Diagnosis Osteoarthritis right knee Post-op diagnosis: same Post-op diagnosis: Same Post-op findings: Same Procedure done: Right total knee arthroplasty Implants: Shelly Triathalon total knee arthroplasty components were used includin) Size 2 triathalon cruciate retaining femoral component 2) Size 3 Tritanium tibial component 3) Size 3/[]mm thickness CS tibial bearing insert Pathology: none sent Surgeon: Jesus Aaron Hydraulic Plumber: Mahad Lopez Hydraulic Plumber: The nurse practitioner the nurse practitioner assisted with critical portions of the case including positioning, draping, exposure, component implantation, closure and dressing application and is present through the entirety of the case. Anesthesia: Nerve Block (Spinal, adductor canal block) Estimated blood loss (mL): 150 Findings: The patient eburnated bone over the medial femoral condyle,and medial tibial plateau. There was minimal patellar chondromalacia with no exposed subchondral bone. The nonresurfaced patella articulated well with thetrochlear component Condition: stable Disposition: PACU Procedure: The patient was taken to the operating room. Patient was given 1 g of tranexamic acid and 2 g of Ancef. The above anesthesia provided by the anesthesia service. A timeout was performed. The patient was prepped and draped in the usual fashion with the lower extremity exposed. A anterior incision was made, midline, from a point proximal to the patella to the distal tibial tubercle. The knee was entered through a medial parapatellar approach. The patella could be displaced laterally and the knee flexed. The patellar fat pad was resected to provide better visibility. Retractors were placed medially and laterally adjacent to the tibial plateau. At a point approximately 8 cm above the patella, 2 small incisions were made with a scalpel blade and 2 long threaded pins were placed into the anterior medial femur engaging both cortices. The femoral arrays were placed over these pins and secured. At a point 8 cm distal to the tibial tubercle. 2 shorter bicortical threaded pins were placed across the anterior medial tibia and the tibial arrays placed. A checkpoint was made just proximal and medial to the medial femoral condyle and just medial to the tibial plateau. Small osteotomes were placed in the joint in both flexion and extension to determine ligamentous laxity. The femoral component was externally rotated 2 degrees and the tibia cut and 2 additional degrees of valgus to balance the knee.. The [employer] robot was then introduced to the field and the femur and tibia cut in accordance with our plan. he [employer]seal was then used to provide hemostasis, particularly about the posterior capsule. A trial with the above components provided excellent stability and full range of motion. The femur was then prepared for the femoral pegs of the component in the tibia for the tibial component. The femur and tibia were then press-fit into place. An osteotome was used to remove the lateral 8 mm of the patella to minimize chances of later impingement. A neurectomy was accomplished circumferentially about the patella with electrocautery and lateral osteophytes removed. Surfaces were cleaned with a gentamicin solution. The femur and tibia were then press-fit into place. The posterior capsule and collateral ligaments were then injected with a solution of 100 mL of 0.2% ropivacaine, 1 mL of a 1:1000 epinephrine solution, 30 mg of Toradol, and 1 g of tranexamic acid. Final polyethylene component was then snapped into place into the tibia. The extensor retinaculum was closed with a running 1 Stratafix interrupted 1 Ethibond. The subcutaneous tissues were closed with 2-0 Vicryl and the skin was closed with a running 4-0 Stratafix. The wound was covered with a Dermabond Prineo dressing. It was covered with 4xrs and a compressive Tubigauze was applied. The patient was taken to recovery room in stable condition.
--- NOTE | 2022-08-31 13:21 | XR_ITS ---
WS: [id number] EXAMINATION: XR knee RT 1-2V 89641 REASON FOR EXAM: Right total knee COMPARISON: Recent total knee arthroplasty ORDER DATE: 08/31/2022 1:21 PM FINDINGS: There is satisfactory prosthesis positioning with no sign of loosening. There is soft tissue gas surr ounding the knee joint soft tissues from recent operative intervention. There is also some soft tissu e swelling as expected. XR/XR knee RT 1-2V 35425 IMPRESSION: Soft tissue changes of recent right knee joint arthroplasty as noted.
--- NOTE | 2022-08-31 15:41 | ANE.PACU2 ---
Inpatient post-anesthesia follow up: Airway intact: Yes Vital signs: Temperature 98.6 F Pulse Rate 87 Respiratory Rate 18 Blood Pressure 147/79 Pulse Oximetry 94 Oxygen Delivery Me thod Nasal Cannula Oxygen Flow Rate 4 Fraction of Inspir ed Oxygen Hydration adequate: Yes Nausea and vomiting: No Pain level: 1 Mental status: Baseline
[2022-08-31] MEDS: albuterol 2.5 mg/3 mL Neb INHALATION ×2 (16:02→20:25)
[2022-08-31] MEDS: sodium chloride 0.9% 1,000 ML 100 ML IV (16:17)
[2022-08-31] MEDS: HYDROcodone-acetaminophen 7.5-325 mg Tablet 1 TAB PO ×2 (16:35→20:24)
--- NOTE | 2022-08-31 17:38 | PC.NURSE ---
Patient arrived to floor calm and cooperative, no c/o pain, family at bedside. VSS, AAOx4, room clean and clutter free with call light in reach. Turning self in bed, OOBT bathroom with therapies. No needs at this time.
[2022-08-31] MEDS: dicyclomine 10 mg Capsule PO (19:05)
[2022-08-31] MEDS: sennosides-docusate Tablet 2 TAB PO (19:05)
[2022-08-31] MEDS: gabapentin 300 mg Capsule 1800 MG PO (20:20)
[2022-08-31] MEDS: pantoprazole DR 40 mg Tablet PO (20:20)
[2022-08-31] MEDS: atorvastatin 40 mg Tablet 20 MG PO (20:20)
[2022-08-31] MEDS: budesonide 0.5 mg/2 mL Neb INHALATION (20:25)
[2022-08-31] MEDS: morphine 4 mg/mL SDV 1 mL 2 MG IVP ×2 (20:25→22:36)
[2022-08-31] MEDS: ALPRAZolam 0.5 mg Tablet 1 MG PO (20:36)
[2022-09-01] VITALS: BP 122/71; PULSE 81; RESP 17; TEMP 36.4; O2SAT 95
[2022-09-01] MEDS: ceFAZolin 2,000 MG in sodium chloride 0.9% (plus) 50 ML 100 MG IV ×2 (02:00→10:38)
[2022-09-01] MEDS: HYDROcodone-acetaminophen 7.5-325 mg Tablet 1 TAB PO ×2 (03:37→08:15)
[2022-09-01 04:00] VITALS: BP 152/83; PULSE 79; RESP 18; TEMP 36.9; O2SAT 97
[2022-09-01] MEDS: sodium chloride 0.9% 1,000 ML 100 ML IV (05:05)
[2022-09-01] MEDS: lisinopril 10 mg Tablet PO (05:29)
[2022-09-01 05:43] LABS: Hemoglobin 11.4 g/dL (11.5-15.3)
[2022-09-01 08:00] VITALS: BP 157/88; PULSE 82; PULSE 98; RESP 16; RESP 18; TEMP 36.4; O2SAT 91; O2SAT 94
[2022-09-01] MEDS: sennosides-docusate Tablet 2 TAB PO (08:09)
[2022-09-01] MEDS: aspirin 325 mg EC Tablet PO (08:09)
[2022-09-01] MEDS: gabapentin 300 mg Capsule 1800 MG PO (08:16)
[2022-09-01] MEDS: albuterol 2.5 mg/3 mL Neb INHALATION (08:22)
[2022-09-01] MEDS: budesonide 0.5 mg/2 mL Neb INHALATION (08:22)
--- NOTE | 2022-09-01 10:01 | PC.CHAP ---
Pastoral Care Encounter/Spiritual Assessment Type of Contact [] Declined car sander visit [] Patient/Family/Request visit [] Outpatient visit [] Follow-up visit [] Physician referral [] Code/Alert [x] Routine visit [] Staff referral [] Actively dying [] Patient sleeping [] Family support [] [] Out of room [] Palliative care [] [] Receiving care in room [] Pre-surgical visit [] Trauma [] Long length of stay [] ICU visit [] Other: Relational/Emotional Strength [] Patient feels connected with others/family/visitors/staff [] Distress [] Loneliness/isolation [] Abandonment Spirituality of Patient [x] Person of Evelyn [] Attends Judaism of their Evelyn [] Believes in Prayer [] Reads Bible or Mormonism materials [] There are Spiritual issues to be addressed Metal Model Builder Interventions [x] Prayer [] Active listening [] Non-anxious presence [] Spiritual/emotional support [] Crisis/trauma care [] Spiritual counseling [] Bereavement support [] Provided bereavement packet [] Provided Bible/devotional materials [] Provided toy/stuffed animal, coloring book to patient or family member [] Provided Communion [] Anointing/Anthony [] Salvation [x] Completed spiritual assessment [] Other: Impact on Illness or Injury [] Angry [] Fearful [] Anxious [] Often cries [] Exhaustion [] Unable to work [] Unable to attend moravian [] Unable to walk/stand [] Unable to read [] Unable to drive [] Unable to eat/drink [] Unable to sleep [] Unable to be with family [] Patient intubated [] Other: Summary Time spent with patient 5 min
[2022-09-01 10:43] VITALS: BP 157/88; PULSE 82; RESP 16; TEMP 36.4; O2SAT 94
--- NOTE | 2022-09-01 10:53 | PC.NURSE ---
Discharge education reviewed with patient. Patient currently receiving 3/3 IV ABX then will be ready for D/C.
--- NOTE | 2022-09-01 13:06 | PM.DCS ---
Discharge Providers Date of Admission: 08/31/22 13:52 Date of Discharge: September 01, 2022 Attending Provider at Admission: Jesus Cannon MD Attending Provider at Discharge: Jesus Cannon MD Primary Care Provider: Marina Rasheed DO Diagnoses at Discharge Discharge Diagnosis (1) Status post right knee replacement: Status: Acute (2) Osteoarthritis of right knee: Status: Resolved Reason for Visit Reason for Visit: M17.11 Hospital Course Hospital Course The patient tolerated surgery well. They remained hemodynamically stable. They was begun on aspirin and foot pumps for DVT prophylaxis. The patient was mobilized with therapy beginning the day of surgery and by the first postoperative day independent with the walker. As the pain was adequately controlled and they were fully mobile they were discharged home. Physical Exam Narrative: On the day of discharge the knee incision was clean. They had no drainage. There is minimal swelling in the thigh and knee and the calf. No distal neurovascular deficits were noted Discharge Data Studies Completed and Pending Completed Studies During Hospitalization Category Date Time Status XR knee RT 1-2V 41268 Routine Exams 08/31/22 13:21 Completed Radiology Impressions Knee X-Ray 08/31/22 13:21 IMPRESSION: Soft tissue changes of recent right knee joint arthroplasty as noted. Laboratory Results Hgb 11.4 g/dL (11.5-15.3) L 09/01/22 05:23 Sodium 144 mmol/L (136-145) 08/24/22 10:26 Potassium 4.2 mmol/L (3.5-5.1) 08/24/22 10:26 Chloride 104 mmol/L (98-107) 08/24/22 10:26 Carbon Dioxide 29 mmol/L (22-29) 08/24/22 10:26 Anion Gap 15.2 (5-19) 08/24/22 10:26 BUN 8 mg/dL (8-23) 08/24/22 10:26 Creatinine 0.7 mg/dL (0.5-0.9) 08/24/22 10:26 GFR Calculation 85.4 mL/min (90-130) L 08/24/22 10:26 Glucose 98 mg/dL (65-115) 08/24/22 10:26 Calculated Osmolality 296 mOsm/kg (285-295) H 08/24/22 10:26 Calcium 9.3 mg/dL (8.5-10.5) 08/24/22 10:26 Vitals Last Vital Signs Temp 97.5 F L 09/01/22 10:43 Pulse 82 09/01/22 10:43 Resp 16 09/01/22 10:43 BP 157/88 09/01/22 10:43 Pulse Ox 94 09/01/22 10:43 O2 Del Method 09/01/22 08:00 O2 Flow Rate 3 09/01/22 08:00 Discharge Plan Discharge Patient Disposition: Home Health Service Condition: Stable Prescriptions: New aspirin 325 mg Tablet,Delayed Release (Dr/Ec) 325 mg PO DAILY 30 Days Qty: 30 0RF hydrocodone-acetaminophen 7.5-325 mg Tablet 1 tab PO Q4H PRN (Reason: Moderate Pain) 7 Days Qty: 3 0RF Continued Spiriva Respimat 2.5 mcg/actuation mist 1 puff inhalation DAILY budesonide-formoterol [Symbicort] 160-4.5 mcg/actuation HFA aerosol inhaler 3 puff inhalation BID chlorzoxazone 500 mg tablet 1,000 mg PO BID fluticasone propionate 50 mcg/actuation spray,suspension 1 spray intranasal DAILY PRN (Reason: Allergy Symptoms) Rx Instructions: administer into each nostril alprazolam 1 mg tablet 1 mg PO TID PRN (Reason: Anxiety) eszopiclone [Lunesta] 3 mg tablet 3 mg PO BEDTIME pravastatin 20 mg tablet 20 mg PO QPM albuterol sulfate 2.5 mg /3 mL (0.083 %) solution for nebulization 2.5 mg inhalation Q4H PRN (Reason: Shortness Of Breath) lisinopril 10 mg tablet 10 mg PO QAM dicyclomine 10 mg capsule 10 mg PO BID epinephrine 0.3 mg/0.3 mL Auto-Injector 0.3 mg IM Q4H PRN (Reason: Anaphylaxis) lactulose [Enulose] 10 gram/15 mL Solution 10 g PO DAILY PRN (Reason: Constipation) gabapentin 600 mg Tablet 1,800 mg PO BID pantoprazole [Protonix] 40 mg Tablet,Delayed Release (Dr/Ec) 20 mg PO BEDTIME Discharge Orders: Discharge Order (Routine); Ordered 09/01/22 Ordered By: Jesus Cannon Referrals: [facility] ([facility]) [Outside] Mahad Lopez FNP [Physician Aquaculturist] - 09/04/22 8:45 am Discharge Diet: Advance as tolerated Discharge Activity: Limit activity as instructed Patient Instructions: Hydrocodone/Acetaminophen (By mouth), Aspirin (By mouth), Knee Replacement (GEN), Joint Replacement Stoplight, Opioid Safety Activity Restrictions/Additional Instructions: Okay to shower Keep Tubigauze sleeve in place for swelling. Okay to remove for hygiene. Apply FirstIce up to 20 min/hr for pain and swelling take [place] 7.5 for breakthrough pain. Exercises per physical therapy. May weight-bear as tolerated on total knee arthroplasty IF HAVE ANY PROBLEMS OR QUESTIONS CALL H[facility] SE[facility] M[facility]ING OPERATOR AT AND ASK TO HAVE DR. CANNON PAGELee. Discharge Attestations Time Spent in Discharge Care*: other Quality Metrics Clinical Quality Measures [ No reported AMI, CVA or VTE this stay] Coding Level of Care Code Acute Code for Chg Fwd Diagnoses Status post right knee replacement Z96.651 Osteoarthritis of right knee M17.11
== END 2022-09-01 12:23 | disposition home health service (06) ==
LOC: MEDSURG 13:56
PROVIDERS: Anesthesiology; Admitting Provider Orthopaedic Surgery; PCP Family Medicine; Visit Provider Orthopaedic Surgery
PROC: 8E0Y0CZ Robotic Assisted Procedure of Lower Extremity, Open Approach (ICD-10-PCS; CPT 27447; principal; 2022-08-31 09:55)
DX: M17.11 Unilateral primary osteoarthritis, right knee (principal); J44.9 Chronic obstructive pulmonary disease, unspecified; I10 Essential (primary) hypertension; E78.5 Hyperlipidemia, unspecified; E11.9 Type 2 diabetes mellitus without complications; E66.01 Morbid (severe) obesity due to excess calories; Z68.41 Body mass index [BMI] 40.0-44.9, adult
CPT/HCPCS: 27447; 36415; 73560; 80048; 85018; 94640; 97110; 97116; 97161; 97165; 97535; C1776; G0378; J0171; J0690; J1100; J1170; J1580; J1885; J2250; J2270; J2405; J2795; J3010; J7030; J7613; J7626

== ENCOUNTER 2022-09-12 14:29 | Emergency (ER) | payer MEDICARE, MEDICAID, SELFPAY ==
[2022-09-12 14:39] VITALS: BP 147/87; PULSE 85; RESP 16; TEMP 36.9; O2SAT 94
--- NOTE | 2022-09-12 14:58 | W.ED.SKABFB ---
HPI - Skin/Abscess/Foreign Bdy General: Chief complaint: Skin/Abscess/Foreign Body Stated complaint: right knee incision open Time Seen by Provider: 09/12/22 14:50 Source: patient Mode of arrival: ambulatory Limitations: no limitations History of Present Illness: Patient is a 61-year-old female who is 10 days status post right knee TKA Dr. Aaron here for complaints of possible wound dehiscence. Patient states she was sleepwalking on and accidentally slipped and caught herself but in the process thinks she popped her wound open . Patient states she was seen at a walk-in clinic and they Steri-Stripped the entire wound (she states following surgery wound was closed with skin adhesive/glue). She states she is here because she wants a dressing on the wound. MD complaint: other (wound dehiscence) Onset (ago): day(s) Tetanus up to date: yes Location: RLE Severity: mild Relieving factors: none Exacerbating factors: none Associated symptoms: Reports no associated symptoms; Deny chills or fever(s) Review of Systems Const: Denies: fever(s), chills or body aches Resp: Denies: dyspnea Musc: Reports: joint pain (normal since surgery-improving) and joint swelling (normal post op swelling); Denies: extremity pain, extremity swelling, joint redness or joint warmth Neuro: Denies: numbness in extremities or sensory changes PFSH ED PFSH: Medical History COPD exacerbation Surgical History Status post left hip replacement Social History Smoking and tobacco status: never smoked Physical Exam Const: COMMON NORMALS: no acute distress, patient oriented x3, no limitations and alert Extremity: COMMON NORMALS: capillary refill normal, no clubbing, cyanosis or edema and no calf tenderness GENERAL: Yes normal exam except as noted RIGHT LOWER EXTREMITY: Yes knee joint OTHER: pt with several intact steri strips overlying vertical knee incision from TKA; none of the strips are disrupted; I can appreciate one small possible area of wound dehiscence that is draining a scant amount of serosanguineous drainage; there is no redness or warmth to the knee or the incision Neuro: COMMON NORMALS: patient oriented x3 SENSORIUM/ORIENTATION: Yes alert Course Vital Signs: Vital signs: Vital Signs Temperature 98.4 F 09/12/22 14:39 Pulse Rate 85 09/12/22 14:39 Respiratory Rate 16 09/12/22 14:39 Blood Pressure 147/87 09/12/22 14:39 Pulse Oximetry 94 09/12/22 14:39 MDM - Skin/Abscess/Foreign Bdy Medicial Decision Making No signs of infection at this time. Wound will be dressed. Wound/infection precautions given to patient. Follow up with ortho or PCP/return to ED sooner if needed. Discharge Plan Discharge Patient Disposition: Home Clinical Impression: Postoperative wound dehiscence, Status post right knee replacement Condition: Stable Prescriptions: No Action Spiriva Respimat 2.5 mcg/actuation mist 1 puff inhalation DAILY budesonide-formoterol [Symbicort] 160-4.5 mcg/actuation HFA aerosol inhaler 3 puff inhalation BID chlorzoxazone 500 mg tablet 1,000 mg PO BID fluticasone propionate 50 mcg/actuation spray,suspension 1 spray intranasal DAILY PRN (Reason: Allergy Symptoms) Rx Instructions: administer into each nostril alprazolam 1 mg tablet 1 mg PO TID PRN (Reason: Anxiety) eszopiclone [Lunesta] 3 mg tablet 3 mg PO BEDTIME pravastatin 20 mg tablet 20 mg PO QPM albuterol sulfate 2.5 mg /3 mL (0.083 %) solution for nebulization 2.5 mg inhalation Q4H PRN (Reason: Shortness Of Breath) lisinopril 10 mg tablet 10 mg PO QAM dicyclomine 10 mg capsule 10 mg PO BID hydrocodone-acetaminophen 10-325 mg tablet 1 tab PO Q4H PRN (Reason: pain) 5 Days Qty: 30 0RF naproxen 500 mg tablet 500 mg PO BID PRN (Reason: pain) Qty: 60 0RF epinephrine 0.3 mg/0.3 mL Auto-Injector 0.3 mg IM Q4H PRN (Reason: Anaphylaxis) lactulose [Enulose] 10 gram/15 mL Solution 10 g PO DAILY PRN (Reason: Constipation) gabapentin 600 mg Tablet 1,800 mg PO BID pantoprazole [Protonix] 40 mg Tablet,Delayed Release (Dr/Ec) 20 mg PO BEDTIME Discharge Orders: Discharge ED (Routine); Ordered 09/12/22 Ordered By: Mariela Sales Referrals: Jesus Aaron MD [Primary Care Provider] - Activity Restrictions/Additional Instructions: The area of wound dehiscence at this time is incredibly small and there is no further action needed at this time other than monitoring for signs of infection such as redness, swelling, purulent or odorous drainage, increased pain, or any other concerns you may have. You need to seek medical reevaluation or follow-up with orthopedics if these occur. Coding Level of Care Code ED [employer] Conservationist for [facility]
== END 2022-09-12 15:03 | disposition home or self-care (01) ==
PROVIDERS: Emergency Provider Physician Assistant; PCP Orthopaedic Surgery
DX: T81.31XA Disruption of external operation (surgical) wound, not elsewhere classified, initial encounter (principal); Z96.651 Presence of right artificial knee joint; Y83.8 Other surgical procedures as the cause of abnormal reaction of the patient, or of later complication, without mention of misadventure at the time of the procedure; J44.9 Chronic obstructive pulmonary disease, unspecified
CPT/HCPCS: 99282

== ENCOUNTER 2022-09-15 08:34 | Outpatient (CLI) | payer MEDICARE, MEDICAID, SELFPAY ==
--- NOTE | 2022-09-15 08:43 | MR_ITS ---
WS: [id number] MRI CERVICAL SPINE NONCONTRAST TECHNIQUE: Sagittal T1, T2 and STIR imaging. Axial T2, gradient, and fiesta imaging. CLINICAL INFORMATION: M47.12 - Other spondylosis with myelopathy, cervical region COMPARISON: CT August 17, 2022 FINDINGS: Straightening of the normal cervical lordosis. Cord signal is normal. Slight anterolisthesis C3 on C4 and C4 on C5. Disc space narrowing worse at C5-C6 and C6-C7. C2-C3: Moderate LEFT and no significant RIGHT foraminal narrowing. Mild facet arthropathy. Spinal can al is patent. C3-C4: Disc osteophyte complex with endplate ridging. Moderate facet arthropathy. Moderate bilateral bony foraminal narrowing. Spinal canal is patent. C4-C5: Slight anterolisthesis C4 on C5. Severe RIGHT bony foraminal narrowing. Facet arthropathy and uncovertebral joint hypertrophy. Mild LEFT bony foraminal narrowing. C5-C6: Disc osteophyte complex with endplate ridging eccentric to the LEFT. Severe LEFT bony foramina l narrowing. Moderate RIGHT bony foraminal narrowing. Mild facet arthropathy and uncovertebral joint hypertrophy. Mild central canal stenosis. C6-C7: Disc osteophyte complex with endplate ridging. Moderate to severe RIGHT bony foraminal narrowi ng. Mild LEFT bony foraminal narrowing. Mild facet arthropathy. Spinal canal is patent. C7-T1: Endplate osteophytic ridging. Moderate bilateral bony foraminal narrowing. Spinal canal is pat ent. Mild facet arthropathy. Visualized brain stem structures: Normal. Prevertebral soft tissues: Normal. MR/MR cervical spin wo con* [id number] IMPRESSION: Images degraded by patient motion. 1. Straightening of the normal cervical lordosis with disc space narrowing wor se at C5-C6 and C6-C7. 2. Mild central canal stenosis C4-C5 C5-C6 and C6-C7. 3. Moderate to severe bony foraminal narrowing worse at RIGHT C3-C4, RIGHT C4- C5, LEFT C5-C6 and RIGHT C6-C7. Mild to moderate bilateral C7-T1 bony foraminal narrowing worse in the LEFT.
--- NOTE | 2022-09-15 09:46 | XR_ITS ---
WS: [id number] XR knees AP WB w RT lmt ORTH REASON FOR EXAM: ptop FINDINGS: Total right knee arthroplasty. The components of the prosthesis are intact and in proper position and alignment and unchanged compar ed to 08/31/2022. XR/XR knees AP WB w RT lmt ORTH IMPRESSION: Stable total right knee arthroplasty as above.
== END 2022-09-15 08:35 | disposition home or self-care (01) ==
PROVIDERS: PCP Orthopaedic Surgery; Referring Provider Nurse Practitioner Family; Visit Provider Specialist
DX: M47.12 Other spondylosis with myelopathy, cervical region (principal); Z96.659 Presence of unspecified artificial knee joint; Z96.642 Presence of left artificial hip joint
CPT/HCPCS: 72141; 73560; 73565

== ENCOUNTER → 2022-09-16 10:09 | Outpatient (BNVA) | payer MEDICARE, MEDICAID, SELFPAY | PROVIDERS: PCP Orthopaedic Surgery; Visit Provider Orthopaedic Surgery | DX: T81.31XA Disruption of external operation (surgical) wound, not elsewhere classified, initial encounter (principal); Y83.8 Other surgical procedures as the cause of abnormal reaction of the patient, or of later complication, without mention of misadventure at the time of the procedure; Z91.81 History of falling; Z96.651 Presence of right artificial knee joint | CPT/HCPCS: 99213 ==

== ENCOUNTER 2022-09-17 05:50 | Day surgery (SDC) | payer MEDICARE, MEDICAID, SELFPAY ==
[2022-09-16 17:10] VITALS: BMI 43.9
[2022-09-17] VITALS (12 sets, daily range): BP systolic 127–165; BP diastolic 77–110; PULSE 81–99; RESP 16–18; TEMP 36.6–36.9; O2SAT 90–99
[2022-09-17] MEDS: sodium chloride 0.9% 1,000 ML 30 ML IV (06:22)
--- NOTE | 2022-09-17 07:08 | ANES.PREANE2 ---
Pre-Anesthetic Assessment Height/Weight: Height 1.52 m Weight 102.058 kg Temp Pulse Resp BP Pulse Ox O2 Del Method 98.1 F 86 17 144/110 92 09/17/22 06:11 09/17/22 06:11 09/17/22 06:11 09/17/22 06:11 09/17/22 06:11 09/17/22 06:11 Preop Diagnosis: Dehisced right total knee incision Operation Date: 09/17/22 07:55 Proposed Procedures p exporation, I&D surgical wound right knee/ 60360,T81.31XA(Right) - Jesus Aaron MD s I&D surgical wound right knee(Right) - Jesus Aaron MD Familial anesthetic complications: None Was Beta Estuardo taken within 24 hours: N/A Was Clonidine taken within 24 hours: N/A Last intake: Intake Last Liquid Date 09/16/22 Last Liquid Time 18:00 Last Solid Date 09/16/22 Last Solid Time 18:00 Social Tobacco and No alcohol Exam alert, oriented x 3, clear to auscultation bilaterally and regular rate & rhythm Airway Mallampati: Class III Dentition: chipped Pulmonary Chronic Obstructive Pulmonary Disease CV/HEM Hypertension GI Gastroesophageal Reflux Disease Metabolic Diabetes Mellitus, Hyperlipidemia and Morbid Obesity Anesthetic Plan ASA status: 3 Anesthesia: General Other: Alpha Gal Allergy Risk of > 500 ml blood loss (7ml/kg in children): No Medications/Allergies Home Medications Medication Instructions Recorded Confirmed Last Taken Type albuterol sulfate 2.5 mg/3 mL 2.5 mg inhalation Q4H PRN 03/21/21 09/17/22 09/16/22 History (0.083 %) solution for nebulization Shortness Of Breath alprazolam 1 mg tablet 1 mg PO TID PRN Anxiety 03/21/21 09/17/22 09/16/22 History budesonide-formoterol HFA 160 3 puff inhalation BID 03/21/21 09/17/22 09/16/22 History mcg-4.5 mcg/actuation aerosol inhaler (Symbicort) chlorzoxazone 500 mg tablet 1,000 mg PO BID 03/21/21 09/17/22 09/16/22 History fluticasone propionate 50 1 spray intranasal DAILY PRN 03/21/21 09/17/22 09/16/22 History mcg/actuation nasal Allergy Symptoms spray,suspension lisinopril 10 mg tablet 10 mg PO QAM 03/21/21 09/17/22 09/16/22 History pravastatin 20 mg tablet 20 mg PO QPM 03/21/21 09/16/22 08/30/22 History tiotropium bromide 2.5 1 puff inhalation DAILY 03/21/21 09/17/22 08/30/22 History mcg/actuation mist for inhalation (Spiriva Respimat) dicyclomine 10 mg capsule 10 mg PO BID 01/20/22 09/17/22 09/16/22 History epinephrine 0.3 mg/0.3 mL 0.3 mg IM Q4H PRN Anaphylaxis 02/18/22 09/17/22 Unknown History injection, auto-injector lactulose 10 gram/15 mL oral 10 g PO DAILY PRN Constipation 02/18/22 09/17/22 1 Month Ago History solution (Enulose) ~08/03/22 gabapentin 600 mg tablet 1,800 mg PO BID 03/03/22 09/17/22 09/16/22 History pantoprazole 40 mg tablet,delayed 20 mg PO BEDTIME 03/03/22 09/17/22 09/16/22 History release (Protonix) naproxen 500 mg tablet 500 mg PO BID PRN pain #60 tabs 09/04/22 09/17/22 08/07/22 Rx hydrocodone 10 mg-acetaminophen 1 tab PO Q6H PRN pain 5 days #20 09/16/22 09/17/22 09/16/22 Rx 325 mg tablet tabs Allergies Allergy/AdvReac Type Severity Reaction Status Date / Time metronidazole Allergy Mild rash Verified 09/16/22 17:06 tramadol Allergy Mild Ears Ring Verified 09/16/22 17:06 and sees black spots Alpha-Gal Allergy ALGY-Anaphy Verified 09/16/22 17:06 (Fndtswrku-Bryhv-0,3-Gala laxis Milk Containing Products Allergy ALGY-Difficulty Verified 09/16/22 17:06 Swallowing Current Medications Generic Name Dose Route Start Last Admin Trade Name Freq PRN Reason Stop Dose Admin Sodium Chloride 1,000 mls @ 30 mls/hr 09/17/22 06:15 09/17/22 06:22 Sodium Chloride 0.9% IV 09/18/22 06:14 30 mls/hr .Q24H DIONY Administration PFSH Anesthesia Medical History COPD exacerbation Surgical History Status post left hip replacement Social History Smoking and tobacco status: never smoked Data Anesthesia Cardiac Studies: No Data to Display
--- NOTE | 2022-09-17 08:10 | W.PM.OPSUD ---
Surgery/Procedure H&P Update DATE OF PROCEDURE: September 17, 2022 DATE H&P PERFORMED: 09/16/22 H&P UPDATE INFORMATION: I have reviewed H&P completed within last 30 days PREOP DIAGNOSIS: Dehisced right total knee incision PLANNED PROCEDURE: Operation Date: 09/17/22 07:55 Proposed Procedures p exporation, I&D surgical wound right knee/ 41030,T81.31XA(Right) - Jesus Aaron MD s I&D surgical wound right knee(Right) - Jesus Aaron MD
[2022-09-17] MEDS: ceFAZolin 2,000 MG in sodium chloride 0.9% (plus) 50 ML 100 MG IV (08:19)
[2022-09-17] MEDS: ceFAZolin 1,000 mg SDV 1000 MG IRRIGATION (08:57)
--- NOTE | 2022-09-17 09:15 | PM.OP ---
Operative Report Date of procedure: September 17, 2022 Pre-op diagnosis: Preop Diagnosis Dehisced right total knee incision Post-op diagnosis: same Procedure done: Exploration right knee wound, debridement skin and subcutaneous tissue and secondary closure Pathology: none sent Surgeon: Jesus Aaron Anesthesia: General Estimated blood loss (mL): 5 Findings: The patient has a 6 cm long dehiscence of her incision overlying the patella. No obvious necrotic or frankly purulent purulence was identified. No deep communication was with the knee joint was noted Condition: stable Disposition: PACU Brief History: The patient is a 61-year-old female who underwent a right total knee arthroplasty on 08/31/2022. She was doing well until 09/12/2022 when she fell at home sleepwalking early on 09/11/2022. She was seen in [facility] urgent care where her skin glue was removed and Steri-Strips applied. She subsequently followed up in our emergency room on 09/12/2022 where the open wound was noted. Remarkably I was not contacted or she was not seen by me until yesterday 09/17/2022. Obvious concerns were raised about potential contamination of the knee joint and she is taken to the operating room today for exploration of the wound and possible secondary closure Procedure: The patient was taken to the operating room and given a general anesthesia. She is prepped and draped in the supine position with the right leg exposed. Antibiotics were held initially. A timeout was performed. The incision was extended approximately 2 cm proximally and distally. Attention was made at removing exposed retained sutures in the field. Utilizing scalpel and hemostat all retained suture was removed. Dissection was then carried down beneath the margins of the wound medially and laterally. No obvious communication within the knee joint was identified no necrotic or purulent material was noted. The wound was then irrigated with copious saline. The skin edges were closed with vertical mattress #1 Prolene suture. Xeroflo gauze,'s OpSite dressing, compressive Webril, Sebas wrap and knee immobilizer were applied. The patient was taken recovery room in stable condition.
--- NOTE | 2022-09-17 09:20 | PC.NURSE ---
pt arrived to PACU, awake, Dressing and brace to right knee C/D/I, right foot w/d, cap refill <3 seconds, good pedal pulse, able to wiggle toes. Ice pack applied.
[2022-09-17] MEDS: morphine 4 mg/mL SDV 1 mL 2 MG IVP (09:45)
--- NOTE | 2022-09-17 09:45 | PC.NURSE ---
Morphine 2mg IVP given related to alpha gal allergy and available medications.
[2022-09-17] MEDS: acetaminophen 325 mg Tablet 975 MG PO (10:37)
--- NOTE | 2022-09-17 13:35 | ANE.PACU2 ---
Inpatient post-anesthesia follow up: Airway intact: Yes Vital signs: Temperature 98.5 F Pulse Rate 91 Respiratory Rate 18 Blood Pressure 134/90 Pulse Oximetry 95 Oxygen Delivery Me thod Room Air Oxygen Flow Rate 1 Fraction of Inspir ed Oxygen Hydration adequate: Yes Nausea and vomiting: No Pain level: 1 Mental status: Baseline
== END 2022-09-17 10:45 | disposition home or self-care (01) ==
PROVIDERS: PCP Orthopaedic Surgery; Visit Provider Orthopaedic Surgery
PROC: (CPT 13160; principal; 2022-09-17 07:35)
PROC: (CPT 13160; 2022-09-17 07:35)
DX: T81.31XA Disruption of external operation (surgical) wound, not elsewhere classified, initial encounter (principal); Y83.8 Other surgical procedures as the cause of abnormal reaction of the patient, or of later complication, without mention of misadventure at the time of the procedure; Z96.651 Presence of right artificial knee joint; Z91.81 History of falling
CPT/HCPCS: 13160; 87070; 87075; 87205; J0330; J0690; J1720; J2270; J2405; J2704; J3010; J3490; J7030

== ENCOUNTER → 2022-09-24 09:29 | Outpatient (BNVA) | payer MEDICARE, MEDICAID, SELFPAY | PROVIDERS: PCP Orthopaedic Surgery; Visit Provider Nurse Practitioner Family | DX: Z98.890 Other specified postprocedural states (principal) | CPT/HCPCS: 99024 ==

== ENCOUNTER → 2022-10-01 08:01 | Outpatient (BNVA) | payer MEDICARE, MEDICAID, SELFPAY | PROVIDERS: PCP Orthopaedic Surgery; Visit Provider Nurse Practitioner Family | DX: Z47.89 Encounter for other orthopedic aftercare (principal); Z96.651 Presence of right artificial knee joint | CPT/HCPCS: 73560; 73565; 99024; 99213 ==

== ENCOUNTER → 2022-10-13 10:00 | Outpatient (BNVA) | payer MEDICARE, MEDICAID, SELFPAY | PROVIDERS: PCP Orthopaedic Surgery; Visit Provider Nurse Practitioner Family | DX: Z98.890 Other specified postprocedural states (principal); Z96.651 Presence of right artificial knee joint; T81.41XA Infection following a procedure, superficial incisional surgical site, initial encounter; Y83.8 Other surgical procedures as the cause of abnormal reaction of the patient, or of later complication, without mention of misadventure at the time of the procedure | CPT/HCPCS: 10060; 87070; 87075; 87077; 87186; 87205; 99024; 99213 ==

== ENCOUNTER 2022-10-15 12:00 | Outpatient (CLI) | payer MEDICARE, MEDICAID, SELFPAY ==
[2022-10-15 13:28] LABS: Erythrocyte Sedimentation Rate 9 mm/hr (0-15)
== END 2022-10-15 12:01 | disposition home or self-care (01) ==
LOC: LAB 12:04
PROVIDERS: PCP Orthopaedic Surgery; Visit Provider Orthopaedic Surgery
DX: Z98.890 Other specified postprocedural states (principal)
CPT/HCPCS: 36415; 85651; 86140; 99213

== ENCOUNTER 2022-10-19 12:10 | Day surgery (SDC) | payer MEDICARE, MEDICAID, SELFPAY ==
[2022-10-16 16:00] VITALS: BMI 43.9
[2022-10-19 13:45] VITALS: BP 152/105; PULSE 82; RESP 18; TEMP 36.5; O2SAT 94
--- NOTE | 2022-10-19 14:15 | SUR.PHASEI ---
Dr Aaron looked at patient's knee and area of concern has healed since she was in his clinic. Case will be cancelled and patient will follow up in a week in clinic.
--- NOTE | 2022-10-19 14:21 | PM.PN ---
Subjective Subjective: No specific with her knee. Denies any fevers Vitals/I&O/Wt Last Vital Signs Temp 97.7 F 10/19/22 13:45 Pulse 82 10/19/22 13:45 Resp 18 10/19/22 13:45 BP 152/105 10/19/22 13:45 Pulse Ox 94 10/19/22 13:45 O2 Del Method Room Air 10/19/22 13:45 Physical Exam Narrative: Her right knee distal incision has completely healed. Cannot express any drainage. Her knee is free of erythema. She has no knee effusion. Data Micro: Cultures of the knee incision revealed Enterococcus faecalis scant strep species interpreted as normal celina A&P Assessment and plan (1) Cutaneous abscess of right knee: Vivian's partial infection appears to have resolved. Have her continue her Augmentin for an additional 10 days. Directed her to call me if she has any further drainage. Plan Nothing to suggest persistent infection. We will have her resume her Augmentin to complete an additional 10-day course. Attestations Medical Necessity Statement*: Cancel surgery today. Follow-up office 2 weeks. Coding Level of Care Code Acute Code for [facility] Fwd Diagnoses Cutaneous abscess of right knee L02.415
== END 2022-10-19 14:27 | disposition home or self-care (01) ==
PROVIDERS: PCP Family Medicine; Visit Provider Orthopaedic Surgery
DX: L02.415 Cutaneous abscess of right lower limb (principal); Z53.9 Procedure and treatment not carried out, unspecified reason

== ENCOUNTER → 2022-10-20 14:00 | Outpatient (BNVA) | payer MEDICARE, MEDICAID, SELFPAY | PROVIDERS: PCP Family Medicine; Visit Provider Specialist | DX: G56.01 Carpal tunnel syndrome, right upper limb (principal); M47.12 Other spondylosis with myelopathy, cervical region; E11.42 Type 2 diabetes mellitus with diabetic polyneuropathy | CPT/HCPCS: 95910; 95912 ==

== ENCOUNTER 2022-10-29 11:17 | Outpatient (CLI) | payer MEDICARE, MEDICAID, SELFPAY ==
--- NOTE | 2022-10-29 12:46 | OP.DCCON ---
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 Height: 5 ft Weight: 230 lb BMI: 45 kg/m2 UBW: Pt said she weighed 130 lbs when she was actively doing drugs. IBW: 100 lbs Weight History: Pt reported that Alpha Gal had slapped on 40 lbs and she would like to lose weight. Concerns and Goals: She has learned what foods she can and cannot eat with alpha gal syndrome and was interested in what she could eat. Sleep Hygiene: Sleep walks (and eats and drives), gets up mid morning typically Physical Activity: Vivian hopes to be more active now that her hip and knee are replaced. Feeding Issues: Poor Dentition Other Feeding Issues: Though she is missing a lot of teeth she did not mention any problems eating. Food Allergies and Sensitivities: Alpha Gal Syndrome Meds, Supplements & Other: Lost weight and her doctor told her to stop taking Metformin and she hasn't restarted. 24 Hour Recall: Breakfast Time: 9:40-10:00 Egg sandwich with plant butter, 1.5 cup apple juoic Snack Time: Lunch Time: 2 eggs + 2 biscuits @ [employer] water Snack Time: Dinner Time: Fish, salad, and sweet potato at [employer] in [place] Snack Time: Eating Out: Mixed responses but in 24 hour recall she ate out twice. Soda vs Milk vs Water: She mentioned giving up soda starting yesterday, drinks water, no coffee or milk Additional Comments: Pt has smoked marijuana for 47 years before tyler to bed. Recommendations: Vivian is a pleasant and talkative person who desparately wants to know what to eat and how to lose weight. No snacking or sweets were mentioned in the 24 hour recall and she seems to know what she shouldn't eat - but wants ideas of what to eat. No fruits or vegetables were mentioned in the recall, but she says she likes them. Also said she likes being active. When we talked about her night eating I asked if the timing of smoking marijuana before bed, and then waking up at some point and eating - but not remembering the next morning was linked? She didn't think so. We discussed a couple of articles I printed out regarding Alpha Gal. With a BMI of 45 Vivian is in the morbidly obese category. She attributes her weight to alpha gal, but I would add that her eating habits and inability to ambulate b/c of surgeries contributes as well - she likes to walk and cannot currently, but hopes to soon. Nutrition dx: Excessive energy intake r/t habits and patterns AEB BMI of 45 kg/m2. We discussed foods she could and could not eat, and we talked about incorporating more fruits and vegetables into her diet, as well as drinking more water and walking. Planning and buying ahead of time so that she has the right kind of foods on hand for her allergy and wt loss would be important. Her shops and per Vivian is very supportive. He talked about getting her a cabinet just for her food so that he could lock the others at night. She is convinced that smoking marijuana right before bed and then getting up and eating in her sleep is not connected. And she will continue to smoke weed she said. We talked about aiming for losing 10% of her weight to begin with which would be 23 lbs. She wanted to go much lower, but we decided that is where to start. Monitoring and evaluation will be accomplished by Vivian if she chooses to follow up. She has my number and extension. I think her will be a big support in this. When she talks she is very motivated, but I am unsure that she can follow through with some of the changes as well as planning/shopping ahead of time. Coding Level of Care Code Nutrition/Individ/Init 60 min Time Spent (min) 60
--- NOTE | 2022-10-29 13:09 | P.DIET_ITS ---
Reason for Visit: 55915 - Z91.018, Z76.89 24 Hour Recall: Breakfast Time: Snack Time: Lunch Time: Snack Time: Dinner Time: Snack Time: Coding
--- NOTE | 2022-10-29 13:09 | OP.DCCON ---
Reason for Visit: 39743 - Z91.018, Z76.89 24 Hour Recall: Breakfast Time: Snack Time: Lunch Time: Snack Time: Dinner Time: Snack Time: Coding
== END 2022-10-29 11:18 | disposition home or self-care (01) ==
LOC: DIET 11:21
PROVIDERS: PCP Family Medicine; Visit Provider Family Medicine
DX: Z71.3 Dietary counseling and surveillance (principal); Z68.42 Body mass index [BMI] 45.0-49.9, adult; Z91.018 Allergy to other foods; Z76.89 Persons encountering health services in other specified circumstances
CPT/HCPCS: 97802

== ENCOUNTER → 2022-11-04 14:32 | Outpatient (BNVA) | payer MEDICARE, MEDICAID, SELFPAY | PROVIDERS: PCP Family Medicine; Visit Provider Orthopaedic Surgery | DX: Z96.651 Presence of right artificial knee joint (principal) | CPT/HCPCS: 99024 ==

== ENCOUNTER → 2022-11-12 15:30 | Outpatient (BNVA) | payer MEDICARE, MEDICAID, SELFPAY | PROVIDERS: PCP Family Medicine; Visit Provider Podiatrist Foot & Ankle Surgery | DX: E11.8 Type 2 diabetes mellitus with unspecified complications (principal); E11.42 Type 2 diabetes mellitus with diabetic polyneuropathy; I73.9 Peripheral vascular disease, unspecified; L60.3 Nail dystrophy | CPT/HCPCS: 11721 ==

== ENCOUNTER → 2022-11-19 13:43 | Outpatient (BNVA) | payer MEDICARE, MEDICAID, SELFPAY | PROVIDERS: PCP Family Medicine; Visit Provider Family Medicine | DX: E11.42 Type 2 diabetes mellitus with diabetic polyneuropathy (principal); E88.09 Other disorders of plasma-protein metabolism, not elsewhere classified | CPT/HCPCS: 80061; 82785; 83036; 86003 ==

== ENCOUNTER → 2022-12-01 08:59 | Outpatient (BNVA) | payer MEDICARE, MEDICAID, SELFPAY | PROVIDERS: PCP Family Medicine; Visit Provider Nurse Practitioner Family | DX: Z96.651 Presence of right artificial knee joint (principal) | CPT/HCPCS: 73560; 73565; 99213 ==

== ENCOUNTER → 2022-12-02 09:04 | Outpatient (BNVA) | payer MEDICARE, MEDICAID, SELFPAY | PROVIDERS: PCP Family Medicine; Visit Provider Specialist | DX: H53.8 Other visual disturbances (principal); G56.01 Carpal tunnel syndrome, right upper limb; E11.42 Type 2 diabetes mellitus with diabetic polyneuropathy; M47.12 Other spondylosis with myelopathy, cervical region; R49.0 Dysphonia; Z87.891 Personal history of nicotine dependence; F12.90 Cannabis use, unspecified, uncomplicated | CPT/HCPCS: 99214 ==

== ENCOUNTER → 2022-12-28 08:01 | Outpatient (BNVA) | payer MEDICARE, MEDICAID, SELFPAY | PROVIDERS: PCP Family Medicine; Visit Provider Otolaryngology | DX: R49.0 Dysphonia (principal); J06.9 Acute upper respiratory infection, unspecified; H90.12 Conductive hearing loss, unilateral, left ear, with unrestricted hearing on the contralateral side; H61.22 Impacted cerumen, left ear; R05.3 Chronic cough; J98.8 Other specified respiratory disorders; E66.01 Morbid (severe) obesity due to excess calories; Z68.41 Body mass index [BMI] 40.0-44.9, adult | CPT/HCPCS: 31575; 69210; 71046; 99204 ==

== ENCOUNTER → 2023-01-05 12:19 | Outpatient (BNVA) | payer MEDICARE, MEDICAID, SELFPAY | PROVIDERS: PCP Family Medicine; Visit Provider Anesthesiology Pain Medicine | DX: M16.9 Osteoarthritis of hip, unspecified (principal); M47.016 Anterior spinal artery compression syndromes, lumbar region; M43.16 Spondylolisthesis, lumbar region; M48.37 Traumatic spondylopathy, lumbosacral region | CPT/HCPCS: 72110; 73521; 99204 ==

== ENCOUNTER → 2023-01-11 08:25 | Outpatient (BNVA) | payer MEDICARE, MEDICAID, SELFPAY | PROVIDERS: PCP Family Medicine; Visit Provider Otolaryngology | DX: R49.0 Dysphonia (principal); R05.3 Chronic cough; E66.01 Morbid (severe) obesity due to excess calories; Z68.41 Body mass index [BMI] 40.0-44.9, adult; J38.3 Other diseases of vocal cords; S80.12XA Contusion of left lower leg, initial encounter; W18.39XA Other fall on same level, initial encounter | CPT/HCPCS: 31575; 99213; 99214 ==

== ENCOUNTER → 2023-01-14 09:17 | Outpatient (BNVA) | payer MEDICARE, MEDICAID, SELFPAY | PROVIDERS: PCP Family Medicine; Visit Provider Anesthesiology Pain Medicine | DX: M79.18 Myalgia, other site (principal); M54.50 Low back pain, unspecified | CPT/HCPCS: 20553; 99213; J1030; J3490 ==

== ENCOUNTER → 2023-01-20 08:02 | Outpatient (BNVA) | payer MEDICARE, MEDICAID, SELFPAY | PROVIDERS: PCP Family Medicine; Visit Provider Nurse Practitioner Family | DX: Z96.651 Presence of right artificial knee joint (principal); I73.9 Peripheral vascular disease, unspecified; E11.8 Type 2 diabetes mellitus with unspecified complications; E11.42 Type 2 diabetes mellitus with diabetic polyneuropathy; L60.3 Nail dystrophy | CPT/HCPCS: 11721; 73560; 73565; 99213 ==

== ENCOUNTER 2023-01-21 07:34 | Day surgery (SDC) | payer MEDICARE, MEDICAID, SELFPAY ==
[2023-01-20 08:25] VITALS: BMI 43.0
--- NOTE | 2023-01-20 08:43 | PC.NURSE ---
Patient has Alpha-Gal allergy. I have informed pharmacy and anesthesia.
[2023-01-21] VITALS (11 sets, daily range): BP systolic 121–207; BP diastolic 75–130; PULSE 83–95; RESP 16–22; TEMP 36.2–36.4; O2SAT 85–99
--- NOTE | 2023-01-21 08:01 | W.PM.OPSUD ---
Surgery/Procedure H&P Update DATE OF PROCEDURE: January 21, 2023 DATE H&P PERFORMED: 01/11/23 H&P UPDATE INFORMATION: I have reviewed H&P completed within last 30 days, I have examined patient prior to procedure and No changes to prior documentation CHANGES TO PREVIOUS DOCUMENTATION: No changes PREOP DIAGNOSIS: Chronic hoarseness with vocal cord lesion PRIMARY INDICATION FOR PROCEDURE: Chronic hoarseness with vocal cord lesions PLANNED PROCEDURE: Operation Date: 01/21/23 09:40 Proposed Procedures p [id number] -- direct laryngoscopy with biopsy of vocal cord lesion R49.0, J38.3(Not Applicable) - Deon Hassan MD
--- NOTE | 2023-01-21 08:22 | P.ANESASSM_ITS ---
Pre-Anesthetic Assessment Height/Weight: Height 1.52 m Weight 99.79 kg Temp Pulse Resp BP Pulse Ox O2 Del Method 97.5 F L 86 16 130/84 94 Room Air 01/21/23 07:55 01/21/23 07:55 01/21/23 07:55 01/21/23 07:55 01/21/23 07:55 01/21/23 08:06 Preop Diagnosis: Chronic hoarseness with vocal cord lesion Operation Date: 01/21/23 09:40 Proposed Procedures p 97715 -- direct laryngoscopy with biopsy of vocal cord lesion R49.0, J38.3(Not Applicable) - Deon Hassan MD Familial anesthetic complications: None Was Beta Estuardo taken within 24 hours: N/A Was Clonidine taken within 24 hours: N/A Last intake: Intake Last Liquid Date 01/20/23 Last Liquid Time 20:00 Last Solid Date 01/20/23 Last Solid Time 12:00 Social Tobacco Exam alert, oriented x 3, clear to auscultation bilaterally and regular rate & rhythm Airway Mallampati: Class III Dentition: chipped Comments: Comments: excess submandibular tissue Pulmonary Chronic Obstructive Pulmonary Disease and Sleep Apnea CV/HEM Hypertension GI Gastroesophageal Reflux Disease Metabolic Diabetes Mellitus, Hyperlipidemia and Morbid Obesity Anesthetic Plan ASA status: 3 Anesthesia: General Risk of > 500 ml blood loss (7ml/kg in children): No Medications/Allergies Home Medications Medication Instructions Recorded Confirmed Last Taken Type albuterol sulfate 2.5 mg/3 mL 2.5 mg inhalation Q4H PRN 03/21/21 01/21/23 10/18/22 History (0.083 %) solution for nebulization Shortness Of Breath alprazolam 1 mg tablet 1 mg PO TID PRN Anxiety 03/21/21 01/20/23 01/20/23 History pravastatin 20 mg tablet 20 mg PO QPM 03/21/21 01/20/23 01/20/23 History dicyclomine 10 mg capsule 10 mg PO BID 01/20/22 01/20/23 01/20/23 History epinephrine 0.3 mg/0.3 mL 0.3 mg IM Q4H PRN Anaphylaxis 02/18/22 01/20/23 Unknown History injection, auto-injector lactulose 10 gram/15 mL oral 10 g PO DAILY PRN Constipation 02/18/22 01/21/23 1 Month Ago History solution (Enulose) ~08/03/22 gabapentin 600 mg tablet 1,800 mg PO BID 03/03/22 01/20/23 01/20/23 History pantoprazole 40 mg tablet,delayed 20 mg PO BEDTIME 03/03/22 01/20/23 01/20/23 History release (Protonix) budesonide-formoterol HFA 160 3 puff inhalation BID #10.2 grams 10/16/22 01/20/23 01/20/23 Rx mcg-4.5 mcg/actuation aerosol inhaler (Symbicort) eszopiclone 3 mg tablet (Lunesta) 3 mg PO BEDTIME #30 tabs 10/16/22 01/20/23 01/20/23 Rx fluticasone propionate 50 2 spray intranasal DAILY PRN 11/23/22 01/20/23 Unknown Rx mcg/actuation nasal Allergy Symptoms #16 grams spray,suspension tiotropium bromide 2.5 1 puff inhalation DAILY #4 grams 11/23/22 01/20/23 01/20/23 Rx mcg/actuation mist for inhalation (Spiriva Respimat) lisinopril 10 mg tablet 10 mg PO QAM #90 tabs 12/09/22 01/20/23 01/20/23 Rx chlorzoxazone 500 mg tablet 1,000 mg PO BID 30 days #120 tabs 01/04/23 01/20/23 01/20/23 Rx naproxen 500 mg tablet See Rx Instructions .Route 01/20/23 01/21/23 1 Day Ago Rx .COMPLEX #60 tabs ~01/20/23 Allergies Allergy/AdvReac Type Severity Reaction Status Date / Time [place] And Derivatives Allergy Intermediate swelling Verified 01/21/23 07:49 montelukast Allergy Intermediate swelling Verified 01/21/23 07:49 metronidazole Allergy Mild rash Verified 01/21/23 07:49 tramadol Allergy Mild Ears Ring Verified 01/21/23 07:49 and sees black spots Alpha-Gal Allergy ALGY-Anaphy Verified 01/21/23 07:49 (Jquvyvdzn-Ifevd-5,3-Gala laxis Milk Containing Products Allergy ALGY-Difficulty Verified 01/21/23 07:49 (Dairy) Swallowing [Milk Containing Products] red meat Allergy Severe anaphylaxis Uncoded 01/21/23 07:49 [facility] Anesthesia Medical History Acute back pain with sciatica Alpha galactosidase deficiency Anxiety Arthritis Bipolar 1 disorder Chronic back pain COPD (chronic obstructive pulmonary disease) COPD exacerbation Diabetes Enlarged liver Essential hypertension High cholesterol Hyperlipidemia Hypertension Neuropathy YUNI (obstructive sleep apnea) Peptic ulcer Seasonal allergies Vertigo Surgical History History of History of left knee replacement History of tonsillectomy Status post left hip replacement Family History Grandfather Cancer Maternal-prostate Grandmother Cancer Maternal-unknown Other Bleeding disorder Dementia Diabetes Hyperlipidemia Hypertension Lung disease Psychiatric illness Denies family history of CAD (coronary artery disease) Clotting disorder Chronic kidney disease (CKD) Anesthesia complication Stroke Social History Smoking and tobacco status: former smoker Alcohol intake: never Substance/Drug Use: current Substance/Drug use frequency: Special occassions/opportunity only Lives independently: Yes Current occupational status: disabled Special colin needs: No Agree to transfusion: Yes Data Anesthesia Cardiac Studies: No Data to Display
[2023-01-21] MEDS: sodium chloride 0.9% 1,000 ML 30 ML IV (08:27)
[2023-01-21] MEDS: EPINEPHrine 1 mg/mL INJ XX (10:41)
--- NOTE | 2023-01-21 10:53 | P.OP_ITS ---
Operative Report Date of procedure: January 21, 2023 Pre-op diagnosis: Preop Diagnosis Chronic hoarseness with vocal cord lesion Post-op diagnosis: Same Post-op findings: I could not visualize the glottis and the vocal cords. Equipment not available to reach the area and perform the biopsies. [place] scope attempted and would not reach the area. No flexible operating laryngoscope was available. Procedure done: Direct laryngoscopy with only partial visualization and unable to biopsy. Implants: No implants Specimens removed/disposition: No specimen removed Pathology: Nothing for pathology Surgeon: Deon Hassan MD Anesthesia: General Estimated blood loss: 5 mL Complications: No complications encountered Findings: 62-year-old female patient with a right true vocal cord lesion consistent with potential malignancy and chronic hoarseness refractory to treatment. Brief History: 62-year-old female patient with vocal cord lesion right side anteriorly. Being brought to the operating room at this time for direct laryngoscopy and biopsy. Procedure risks and complications explained and understood. Informed consent granted and witnessed. Risks discussed included bleeding infection swelling bruising scarring sore throat voice change need for voice rest need for additional treatment and potential inability to take the biopsy along with more serious risk such as heart attack or stroke or not surviving the surgery. With these things understood informed consent was granted and witnessed. Procedure: Description of procedure: The patient was placed on the operating table in the supine position. Adequate general endotracheal tube anesthesia was obtained. A timeout was accomplished identifying the patient date of plan procedure allergies fire risk and medications given. With all in agreement the procedure continued. The table was rotated 90 degrees. Her head was dropped 15 degrees to the horizontal. Her eyes were taped shut and head drape was applied in usual fashion. A tooth guard was attempted to be placed over her dentition but they were so poor and spread apart and irregular that the tooth guard could not fit. An anterior commissure laryngoscope was used to visualize the oropharynx and base of tongue vallecula and epiglottis area. This was normal. Attempts to visualize beyond the tip of the epiglottis was unsuccessful because of the anterior nature of her larynx and her dentition. The scope could not make the band. I tried a glide scope for visualization. That could not get past the tip of the epiglottis either. There is no flexible operating laryngoscope available. Therefore no attempt was made at further manipulation and biopsy. Therefore the procedure was terminated. Guard was removed. The throat was suctioned clean. Head was returned to the upright position. Head drape and tape were removed. Patient was then returned to anesthesia for wake-up and extubation. Estimated blood loss was 5 mL or less simply from manipulation of the lips against the upper dentition.
--- NOTE | 2023-01-21 11:54 | ANE.PACU2 ---
Inpatient post-anesthesia follow up: Airway intact: Yes Vital signs: Temperature 97.1 F Pulse Rate 92 Respiratory Rate 16 Blood Pressure 124/78 Pulse Oximetry 85 Oxygen Delivery Me thod Room Air Oxygen Flow Rate 6 Fraction of Inspir ed Oxygen 30 Hydration adequate: Yes Nausea and vomiting: No Pain level: 1 Mental status: Baseline
== END 2023-01-21 12:40 | disposition home or self-care (01) ==
PROVIDERS: PCP Family Medicine; Visit Provider Otolaryngology
PROC: 0CJS8ZZ Inspection of Larynx, Via Natural or Artificial Opening Endoscopic (ICD-10-PCS; CPT 31505; principal; 2023-01-21 09:30)
DX: R49.0 Dysphonia (principal); J38.3 Other diseases of vocal cords; E11.9 Type 2 diabetes mellitus without complications; I10 Essential (primary) hypertension; E78.5 Hyperlipidemia, unspecified; J44.9 Chronic obstructive pulmonary disease, unspecified; K21.9 Gastro-esophageal reflux disease without esophagitis; G47.33 Obstructive sleep apnea (adult) (pediatric); E66.01 Morbid (severe) obesity due to excess calories; Z68.41 Body mass index [BMI] 40.0-44.9, adult; Z79.899 Other long term (current) drug therapy; Z87.891 Personal history of nicotine dependence
CPT/HCPCS: 31505; 94660; J0171; J0330; J1100; J2250; J2310; J2371; J2405; J2704; J2710; J3010; J3490; J7030

== ENCOUNTER → 2023-01-28 13:52 | Outpatient (BNVA) | payer MEDICARE, MEDICAID, SELFPAY | PROVIDERS: PCP Family Medicine; Visit Provider Nurse Practitioner Family | DX: S80.211A Abrasion, right knee, initial encounter; T63.301A Toxic effect of unspecified spider venom, accidental (unintentional), initial encounter; W19.XXXA Unspecified fall, initial encounter | CPT/HCPCS: 99214 ==

== ENCOUNTER 2023-02-23 06:58 | Outpatient (CLI) | payer MEDICARE, MEDICAID, SELFPAY ==
--- NOTE | 2023-02-23 07:22 | CT_ITS ---
WS: [id number] CT NECK WITH CONTRAST HISTORY: DYSPHAGIA/DYSPHONIA TECHNIQUE: Contiguous 2 mm axial images are performed through the neck with intravenous contrast. Sag ittal and coronal reformats are also submitted. All CT scans at [facility] use at least one o f these dose optimization techniques: automated exposure control; mA and/or kV adjustment per patient size (includes targeted exams where dose is matched to clinical indication); or iterative reconstruc tion. CONTRAST: CONTRAST: Omnipaque 350; 100 mL IV. DLP: 288.75 mGy.cm COMPARISON: None available. Increased soft tissue in the supraglottic airway. There is mild thickening of the epiglottis. The air way is narrowed but this is probably due to Valsalva or swallowing during the examination. The epiglo ttis does appear prominent. This should be further evaluated by direct laryngoscopy. No discrete mass and no abnormal enhancement. Normal tongue base. Torus tubarius and fossa of Rosenmuller and parapharyngeal fat are normal. No significant lymphadenopathy is identified. Thyroid gland and salivary glands are normally enhancing with no masses. Moderate cervical spondylitic changes. Visualized portions of the skull base demonstrate no abnormalities. Orbits and globes are within norm al limits. No soft tissue masses. Visualized paranasal sinuses and mastoid air cells are normal. Lung apices are clear. IMPRESSION: 1. No enhancing mass or cervical chain adenopathy. 2. Prominent epiglottis with narrowing of the airway is probably due to a swallowing artifact during the examination. Epiglottis can be further evaluated by direct laryngoscopy.
--- NOTE | 2023-02-23 07:22 | FL_ITS ---
WS: [id number] Exam: [place] barium swallow [id number] Date/Time of Exam: 02/23/2023 8:26 AM Reason For Exam: DYSPHAGIA/DYSPHONIA Fluoroscopy time: 2min [id number] minutes # of spot films: Oropharyngeal phase of swallowing was normal. There appears to be mild extrinsic compression along th e RIGHT lateral margin of the esophagus at about the C5 level. There is also some mild posterior extr insic compression at the C5-6 level secondary to anterior osteophytes of the C5 and 6 vertebral erick s. No intrinsic masses were seen. No significant stricture. Mild tertiary spasm of the mid and lower esophagus. No reflux or hiatal hernia identified. The esophagus was not displaced. IMPRESSION: 1. Mild posterior extrinsic compression along the cervical esophagus at the C5-6 level secondary to a nterior spondylosis of C5 and 6. There is also slight extrinsic compression along the RIGHT margin of the esophagus at this level. 2. No intrinsic esophageal mass or stricture was demonstrated. 3. Mild spasm of the mid and lower esophagus.
[2023-02-23] MEDS: iohexol 350 mg/mL 500 mL Btl (per mL) IV (08:16)
== END 2023-02-23 06:59 | disposition home or self-care (01) ==
LOC: RAD 07:00
PROVIDERS: PCP Family Medicine; Visit Provider Specialist
DX: J05.10 Acute epiglottitis without obstruction (principal); K22.2 Esophageal obstruction; R13.10 Dysphagia, unspecified; R49.0 Dysphonia
CPT/HCPCS: 70491; 74220; Q9967

== ENCOUNTER 2023-03-08 15:22 | Emergency (ER) | payer MEDICARE, MEDICAID, SELFPAY ==
[2023-03-08 15:47] VITALS: BP 186/113; PULSE 96; RESP 16; TEMP 36.8; O2SAT 97; BMI 43.0
--- NOTE | 2023-03-08 16:08 | ED_ITS ---
Documented by User: BORIS Peter 03/08/23 16:49 HPI - Fall General: Chief Complaint: Fall Stated Complaint: low back pain Time Seen by Provider: 03/08/23 16:07 Source: patient Mode of arrival: wheelchair Limitations: no limitations History of Present Illness: Patient is a 62-year-old female presents to ED today following a fall. Patient states prior to arrival she was walking when she accidentally tripped and fell. She believes she landed on her right side but her main complaint is her lower back. She states she was not able to ambulate or get into her car without help. She has minor abrasions to her bilateral upper extremities as well as her anterior right knee without any underlying bony tenderness. Last tetanus is unknown. She has a mild skin tear to near her right elbow. Again her main complaint is her lower back. She denies striking her head or LOC. No neck pain. MD complaint: fall Onset (ago): hour(s) Fall from: standing Fall witnessed: yes, by bystander Place fall occurred: street Loss of consciousness: None Prolonged down time: no Symptoms prior to fall: none Context: tripped/slipped Location of injury: back Associated symptoms-after fall: Reports no associated symptoms; Denies abdominal pain, chest pain, headache(s), hematuria or neck pain Review of Systems Eyes: Denies: change in vision, blurry vision, photophobia, floaters or seeing flashes Card: Denies: chest pain Resp: Denies: dyspnea GI: Denies: abdominal pain : Denies: flank pain, dysuria or hematuria Musc: Reports: back pain; Denies: neck pain, extremity pain, extremity swelling, joint pain or joint swelling Skin/Breast: Reports: other (abrasions, skin tears); Denies: rash Neuro: Denies: headache(s), numbness in extremities, weakness in extremities, sensory changes or dizziness PFSH ED PFSH: Medical History Acute back pain with sciatica Alpha galactosidase deficiency Anxiety Arthritis Bipolar 1 disorder Chronic back pain COPD (chronic obstructive pulmonary disease) COPD exacerbation Diabetes Enlarged liver Essential hypertension High cholesterol Hyperlipidemia Hypertension Neuropathy YUNI (obstructive sleep apnea) Peptic ulcer Seasonal allergies Vertigo Surgical History History of History of left knee replacement History of tonsillectomy Status post left hip replacement Family History Grandfather Cancer Maternal-prostate Grandmother Cancer Maternal-unknown Other Bleeding disorder Dementia Diabetes Hyperlipidemia Hypertension Lung disease Psychiatric illness Denies family history of CAD (coronary artery disease) Clotting disorder Chronic kidney disease (CKD) Anesthesia complication Stroke Social History Smoking and tobacco status: former smoker Alcohol intake: never Substance/Drug Use: current Substance/Drug use frequency: Special occassions/opportunity only Lives independently: Yes Current occupational status: disabled Special colin needs: No Agree to transfusion: Yes Physical Exam Const: COMMON NORMALS: no acute distress, patient oriented x3, no limitations and alert GENERAL APPEARANCE: cooperative NUTRITIONAL APPEARANCE: obese ORIENTATION/CONSCIOUSNESS: Yes awake, Yes oriented to person, Yes oriented to place and Yes oriented to time HENMT: COMMON NORMALS: normocephalic and atraumatic HEAD & SCALP: normal to inspection, normocephalic and atraumatic TEETH & GINGIVA: Yes poor dentition TEETH & GINGIVA IMAGES: 1. loose tooth Eye: GENERAL EYE: appearance normal, both eyes and all related structures and normal light reflex DIRECT OPHTHALMOSCOPY: Yes normal light reflex Neck/C-Spine: COMMON NORMALS: full ROM GENERAL: Yes normal visual inspection CERVICAL SPINE: Yes cervical ROM normal, No pain with cervical ROM, No Cervical spine tenderness and No Paracervical muscle tenderness Chest: COMMONS NORMALS: normal inspection of the chest and normal palpation of entire chest wall Resp: COMMON NORMALS: normal respiratory effort and clear to auscultation bilaterally AUSCULTATION: clear to auscultation bilaterally Cardio: COMMON NORMALS: regular rate and regular rhythm RATE: regular rate RHYTHM: regular rhythm GI: COMMON NORMALS: Normal to inspection, nondistended, normoactive bowel sounds present, Soft to palpation and non-tender PALPATION: Yes Soft to palpation Back/Pelvis: THORACIC SPINE/UPPER BACK: Yes normal to inspection, No thoracic spinal tenderness, No paraspinal muscle tenderness and No paraspinal muscle spasm LUMBAR SPINE/LOWER BACK: Yes ROM limited, Yes lumbar spinal tenderness, No paraspinal muscle tenderness and No paraspinal muscle spasm PELVIS: Yes buttocks normal and No sciatic notch tenderness SACROILIAC JOINTS: Yes SI joints normal SACRUM: tenderness COCCYX: no tenderness Extremity: COMMON NORMALS: normal to inspection and full ROM GENERAL: Yes normal exam except as noted Neuro: KELSEY COMA SCALE: document GCS findings Kel[place] coma scale eye openin g: Spontaneous [place] coma scale verbal response: Orientated [place] coma scale motor response: Obey commands [place] coma scale total score: 15 COMMON NORMALS: patient oriented x3, CN's II-XII intact bilaterally, moves all extremities, no focal motor deficits and no sensory deficits noted SENSORIUM/ORIENTATION: Yes alert, Yes oriented to person, Yes oriented to place and Yes oriented to time Skin: NARRATIVE SKIN EXAM: minor abrasions/mild skin tear Course Vital Signs: Vital signs: Vital Signs Temperature 98.2 F 03/08/23 15:47 Pulse Rate 96 03/08/23 15:47 Respiratory Rate 16 03/08/23 15:47 Blood Pressure 186/113 03/08/23 15:47 Pulse Oximetry 97 03/08/23 15:47 Oxygen Delivery Me thod Room Air 03/08/23 15:47 MDM - Fall Lab Data Radiology Impressions Lumbar Spine X-Ray 03/08/23 16:15 IMPRESSION: Stable nonacute findings. Sacrum and Coccyx X-Ray 03/08/23 16:15 IMPRESSION: Nonacute findings. Discharge Plan Discharge Patient Disposition: Home Clinical Impression: Fall from slip, trip, or stumble Qualifiers: Encounter type: initial encounter Qualified Code(s): W01.0XXA - Fall on same l evel from slipping, tripping and stumbling without subsequent striking against object, initial encounter Back pain Qualifiers: Back pain location: low back pain Chronicity: unspecified Back pain laterality: unspecified Sciatica presence: without sciatica Qualified Code(s): M54.50 - Low back pain, unspecified Condition: Stable Prescriptions: New hydrocodone-acetaminophen 5-325 mg tablet 1 tab PO Q8H PRN (Reason: pain (scale score 7-10)) Qty: 10 0RF No Action alprazolam 1 mg tablet 1 mg PO TID PRN (Reason: Anxiety) pravastatin 20 mg tablet 20 mg PO QPM albuterol sulfate 2.5 mg /3 mL (0.083 %) solution for nebulization 2.5 mg inhalation Q4H PRN (Reason: Shortness Of Breath) fluticasone propionate 50 mcg/actuation spray,suspension 2 spray intranasal DAILY PRN (Reason: Allergy Symptoms) Qty: 16 0RF Rx Instructions: administer into each nostril dicyclomine 10 mg capsule 10 mg PO BID chlorzoxazone 500 mg tablet 1,000 mg PO BID 30 Days Qty: 120 2RF loratadine 10 mg tablet 10 mg PO DAILY Qty: 60 1RF budesonide-formoterol [Symbicort] 160-4.5 mcg/actuation HFA aerosol inhaler 3 puff inhalation BID Qty: 10.2 3RF Spiriva Respimat 2.5 mcg/actuation mist 1 puff inhalation DAILY Qty: 4 3RF mupirocin 2 % ointment 1 applic topical BID 14 Days Qty: 22 2RF ibuprofen 800 mg tablet 1,600 mg PO DAILY lidocaine 5 % adhesive patch,medicated 1 patch topical DAILY Rx Instructions: leave on most painful area for up to 12 hrs prednisone 20 mg tablet 40 mg PO DAILY (DME) CPAP mask, tubing, supplies See Rx Instructions .ROUTE .MEDSUPPLY Qty: 1 1RF Rx Instructions: As directed aripiprazole [Abilify] 15 mg tablet 15 mg PO DAILY Qty: 30 1RF lisinopril 10 mg tablet 10 mg PO QAM Qty: 90 1RF eszopiclone [Lunesta] 3 mg tablet 3 mg PO BEDTIME Qty: 30 3RF naproxen 500 mg tablet See Rx Instructions .ROUTE .COMPLEX Qty: 60 0RF Dose Instruction: TAKE 1 TABLET BY MOUTH TWICE DAILY NEEDED FOR PAIN Rx Instructions: TAKE 1 TABLET BY MOUTH TWICE DAILY NEEDED FOR PAIN epinephrine 0.3 mg/0.3 mL Auto-Injector 0.3 mg IM Q4H PRN (Reason: Anaphylaxis) lactulose [Enulose] 10 gram/15 mL Solution 10 g PO DAILY PRN (Reason: Constipation) gabapentin 600 mg Tablet 1,800 mg PO BID pantoprazole [Protonix] 40 mg Tablet,Delayed Release (Dr/Ec) 20 mg PO BEDTIME Discharge Orders: Discharge ED (Routine); Ordered 03/08/23 Ordered By: Cam Colin Referrals: Kleber Johnson MD [Primary Care Provider] - Discharge Diet: Usual diet Discharge Activity: Increase activity as tolerated Patient Instructions: Fall Prevention for Older Adults (ED), Back Pain (ED), Opioid Safety Activity Restrictions/Additional Instructions: Continue with routine medications as directed. Drink plenty of water and fluids with medications. Use acetaminophen and ibuprofen to control pain. Use hydrocodone for severe pain. Clean abrasion daily with mild soap and water and apply [id number] bacitracin antibiotic ointment and cover as needed. Follow-up with primary care for further evaluation and treatment. Use a walker to help with ambulation. Return to ER for new concerns. Sign Out Sign Out Data: Patient Sign Out occurred on 03/08/23 at 16:59. Patient's care was discussed, and care was transferred from to Cam Colin. Coding Level of Care Code ED Wood Products Manufacturer for [employer] Documented by User: WILNER Anaya 03/08/23 17:47 HPI - Fall General: Chief Complaint: Fall Stated Complaint: low back pain Time Seen by Provider: 03/08/23 16:07 [facility] ED PFSH: Medical History Acute back pain with sciatica Alpha galactosidase deficiency Anxiety Arthritis Bipolar 1 disorder Chronic back pain COPD (chronic obstructive pulmonary disease) COPD exacerbation Diabetes Enlarged liver Essential hypertension High cholesterol Hyperlipidemia Hypertension Neuropathy YUNI (obstructive sleep apnea) Peptic ulcer Seasonal allergies Vertigo Surgical History History of History of left knee replacement History of tonsillectomy Status post left hip replacement Family History Grandfather Cancer Maternal-prostate Grandmother Cancer Maternal-unknown Other Bleeding disorder Dementia Diabetes Hyperlipidemia Hypertension Lung disease Psychiatric illness Denies family history of CAD (coronary artery disease) Clotting disorder Chronic kidney disease (CKD) Anesthesia complication Stroke Social History Smoking and tobacco status: former smoker Alcohol intake: never Substance/Drug Use: current Substance/Drug use frequency: Special occassions/opportunity only Lives independently: Yes Current occupational status: disabled Special colin needs: No Agree to transfusion: Yes Physical Exam HENMT: TEETH & GINGIVA IMAGES: 1. loose tooth Neuro: KELSEY COMA SCALE: document GCS findings [place] coma scale total score: 15 Course Vital Signs: Vital signs: Vital Signs Temperature 98.2 F 03/08/23 15:47 Pulse Rate 96 03/08/23 15:47 Respiratory Rate 16 03/08/23 15:47 Blood Pressure 186/113 03/08/23 15:47 Pulse Oximetry 97 03/08/23 15:47 Oxygen Delivery Me thod Room Air 03/08/23 15:47 MDM - Fall Medical Decision Making Patient came in today for concerns of injuries from a trip and fall at home. Patient was complaining of low back pain. Patient had some abrasions to the upper extremities. I received this patient from Mariela Sales PA-C at the end of her shift. We were awaiting x-ray reports. X-rays of the lumbar spine and sacrum come back negative. Patient does have some chronic degenerative disc disease especially at L5-S1 area. Patient was recommended to continue activity as tolerated. Patient was given medications for pain. Patient was discharged home and was stable. Differential diagnoses included fracture, contusions, abrasions, sprain. Lab Data Radiology Impressions Lumbar Spine X-Ray 03/08/23 16:15 IMPRESSION: Stable nonacute findings. Sacrum and Coccyx X-Ray 03/08/23 16:15 IMPRESSION: Nonacute findings. All radiology interpretation(s) finalized by discharge Discharge Plan Discharge Patient Disposition: Home Clinical Impression: Fall from slip, trip, or stumble Qualifiers: Encounter type: initial encounter Qualified Code(s): W01.0XXA - Fall on same level from slipping, tripping and stumbling without subsequent striking against object, initial encounter Back pain Qualifiers: Back pain location: low back pain Chronicity: unspecified Back pain laterality: unspecified Sciatica presence: without sciatica Qualified Code(s): M54.50 - Low back pain, unspecified Condition: Stable Prescriptions: New hydrocodone-acetaminophen 5-325 mg tablet 1 tab PO Q8H PRN (Reason: pain (scale score 7-10)) Qty: 10 0RF No Action alprazolam 1 mg tablet 1 mg PO TID PRN (Reason: Anxiety) pravastatin 20 mg tablet 20 mg PO QPM albuterol sulfate 2.5 mg /3 mL (0.083 %) solution for nebulization 2.5 mg inhalation Q4H PRN (Reason: Shortness Of Breath) fluticasone propionate 50 mcg/actuation spray,suspension 2 spray intranasal DAILY PRN (Reason: Allergy Symptoms) Qty: 16 0RF Rx Instructions: administer into each nostril dicyclomine 10 mg capsule 10 mg PO BID chlorzoxazone 500 mg tablet 1,000 mg PO BID 30 Days Qty: 120 2RF loratadine 10 mg tablet 10 mg PO DAILY Qty: 60 1RF budesonide-formoterol [Symbicort] 160-4.5 mcg/actuation HFA aerosol inhaler 3 puff inhalation BID Qty: 10.2 3RF Spiriva Respimat 2.5 mcg/actuation mist 1 puff inhalation DAILY Qty: 4 3RF mupirocin 2 % ointment 1 applic topical BID 14 Days Qty: 22 2RF ibuprofen 800 mg tablet 1,600 mg PO DAILY lidocaine 5 % adhesive patch,medicated 1 patch topical DAILY Rx Instructions: leave on most painful area for up to 12 hrs prednisone 20 mg tablet 40 mg PO DAILY (DME) CPAP mask, tubing, supplies See Rx Instructions .ROUTE .MEDSUPPLY Qty: 1 1RF Rx Instructions: As directed aripiprazole [Abilify] 15 mg tablet 15 mg PO DAILY Qty: 30 1RF lisinopril 10 mg tablet 10 mg PO QAM Qty: 90 1RF eszopiclone [Lunesta] 3 mg tablet 3 mg PO BEDTIME Qty: 30 3RF naproxen 500 mg tablet See Rx Instructions .ROUTE .COMPLEX Qty: 60 0RF Dose Instruction: TAKE 1 TABLET BY MOUTH TWICE DAILY NEEDED FOR PAIN Rx Instructions: TAKE 1 TABLET BY MOUTH TWICE DAILY NEEDED FOR PAIN epinephrine 0.3 mg/0.3 mL Auto-Injector 0.3 mg IM Q4H PRN (Reason: Anaphylaxis) lactulose [Enulose] 10 gram/15 mL Solution 10 g PO DAILY PRN (Reason: Constipation) gabapentin 600 mg Tablet 1,800 mg PO BID pantoprazole [Protonix] 40 mg Tablet,Delayed Release (Dr/Ec) 20 mg PO BEDTIME Discharge Orders: Discharge ED (Routine); Ordered 03/08/23 Ordered By: Cam Colin Referrals: Kleber Johnson MD [Primary Care Provider] - Discharge Diet: Usual diet Discharge Activity: Increase activity as tolerated Patient Instructions: Fall Prevention for Older Adults (ED), Back Pain (ED), Opioid Safety Activity Restrictions/Additional Instructions: Continue with routine medications as directed. Drink plenty of water and fluids with medications. Use acetaminophen and ibuprofen to control pain. Use hydr ocodone for severe pain. Clean abrasion daily with mild soap and water and apply [id number]-[id number] bacitracin antibiotic ointment and cover as needed. Follow-up with primary care for further evaluation and treatment. Use a walker to help with ambulation. Return to ER for new concerns. Sign Out Sign Out Data: Patient Sign Out occurred on 03/08/23 at 16:59. Patient's care was discussed, and care was transferred from to Cam Colin. 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
--- NOTE | 2023-03-08 16:15 | XRR_ITS ---
PROCEDURE INFORMATION: Exam: XR Lumbosacral Spine Exam date and time: 03/08/2023 4:28 PM Age: 62 years old Clinical indication: Injury or trauma; Fall; Blunt trauma (contusions or hematomas); Patient HX: HX of cervical cancer; Additional info: Pain/fall TECHNIQUE: Imaging protocol: Radiologic exam of the lumbosacral spine. Views: 2 or 3 views. COMPARISON: CR XR lumbar spine min 4V [id number] 01/05/2023 12:25 PM FINDINGS: Bones/joints: No fracture or other acute abnormality. Anterolisthesis of L5 on S1 is unchanged. Alignment is otherwise normal. Severe lumbosacral disc space narrowing is again noted. Remaining levels are unremarkable. Soft tissues: Unremarkable. Vasculature: There is approximately 3.2 cm fusiform ectasia of the distal abdominal aorta. XR/XR lumbar spine 2-3V* [id number] IMPRESSION: Stable nonacute findings.
--- NOTE | 2023-03-08 16:15 | XRR_ITS ---
PROCEDURE INFORMATION: Exam: XR Sacrum and Coccyx, 2 or More Views Exam date and time: 03/08/2023 4:28 PM Age: 62 years old Clinical indication: Injury or trauma; Fall; Blunt trauma (contusions or hematomas); Patient HX: HX of cervical cancer; Additional info: Fall/pain TECHNIQUE: Imaging protocol: XR of the sacrum and coccyx, 2 or more views. COMPARISON: CR XR hip BI 2V wo/w pel [id number] 01/05/2023 12:25 PM FINDINGS: Bones/joints: No fracture or other acute abnormality. There is marked lumbosacral disc space narrowing. There is approximately 8 mm anterolisthesis of L5 on S1. There is a left total hip prosthesis. Soft tissues: Normal. XR/XR sacrum coccyx min 2V [id number] IMPRESSION: Nonacute findings.
[2023-03-08] MEDS: tetanus-dipt-pertussis 0.5 mL SDV IM (16:56)
--- NOTE | 2023-03-08 17:18 | PC.NURSE ---
PT WOUND CLEANED WITH FLUSH, NS BOTTLE AND PACK OF 10 GAUZE. CLEANED OVER BLUE DON SHEET. PT TOLERATED WELL. WOUND WRAPPED WITH NON ADHERENT TELFA AND COBAN.
[2023-03-08] MEDS: HYDROcodone-acetaminophen 10-325 mg Tablet 1 TAB PO (17:24)
== END 2023-03-08 17:47 | disposition home or self-care (01) ==
PROVIDERS: Emergency Provider Nurse Practitioner Family; PCP Family Medicine
DX: M54.50 Low back pain, unspecified (principal); W01.0XXA Fall on same level from slipping, tripping and stumbling without subsequent striking against object, initial encounter; Z87.891 Personal history of nicotine dependence; J44.9 Chronic obstructive pulmonary disease, unspecified; E11.9 Type 2 diabetes mellitus without complications; I10 Essential (primary) hypertension; E78.5 Hyperlipidemia, unspecified; Z23 Encounter for immunization; S40.812A Abrasion of left upper arm, initial encounter; S40.811A Abrasion of right upper arm, initial encounter; S80.211A Abrasion, right knee, initial encounter; M51.37 Other intervertebral disc degeneration, lumbosacral region; K08.89 Other specified disorders of teeth and supporting structures
CPT/HCPCS: 72100; 72220; 90471; 90715; 99284

== ENCOUNTER → 2023-03-24 07:56 | Outpatient (BNVA) | payer MEDICARE, SELFPAY | PROVIDERS: PCP Family Medicine; Visit Provider Podiatrist Foot & Ankle Surgery | DX: E11.42 Type 2 diabetes mellitus with diabetic polyneuropathy (principal); I73.9 Peripheral vascular disease, unspecified; L60.3 Nail dystrophy; L84 Corns and callosities | CPT/HCPCS: 11055; 11721 ==

== ENCOUNTER 2023-04-02 08:03 | Outpatient (CLI) | payer MEDICARE, MEDICAID, SELFPAY ==
--- NOTE | 2023-04-02 08:30 | XRR_ITS ---
PROCEDURE INFORMATION: Exam: XR Chest Exam date and time: 04/02/2023 8:47 AM Age: 62 years old Clinical indication: Pre-operative exam; Cardiovascular screening and respiratory screening exam; Additional info: Preprocedural cardiovascular examination, PT needs to have ekg too.No history of trauma or recent surgery is provided. TECHNIQUE: Imaging protocol: Radiologic exam of the chest. 2image(s) are provided. Views: 2 views. COMPARISON: CR XR chest 2V* [id number] 12/28/2022 8:48 AM FINDINGS: Lungs: There is some subsegmental atelectasis versus post inflammatory scarring demonstrated.No lobar consolidation is appreciated. The lung volumes are slightly increased overall. Pleural spaces: No pneumothorax or pleural effusion is appreciated. Heart/Mediastinum: The cardiomediastinal silhouette is upper normal in size.This can be seen with central averaging as well as ronald enlargement.No cardiac decompensation is appreciated. Diaphragm: The hemidiaphragms are symmetric. Bones/joints: Osseous alignment is maintained.No interval displaced fracture or dislocation is appreciated. There is some mild thoracic spondylosis present. Soft tissues: No radiopaque foreign body or subcutaneous emphysema is appreciated. Other findings: No other significant interval changes are appreciated. XR/XR chest 2V* [id number] IMPRESSION: There is some mild chronic air trapping appearance with no lobar type consolidation is appreciated.No interval acute cardiopulmonary changes are appreciated.
[2023-04-02 09:06] LABS: Anion Gap 13.8 (5-19); Blood Urea Nitrogen 13 mg/dL (8-23); Calcium 8.9 mg/dL (8.5-10.5); Carbon Dioxide 29 mmol/L (22-29); Chloride 103 mmol/L (98-107); Glomerular Filtration Rate 85.1 mL/min (90-130); Glucose 116 mg/dL (65-115); Osmolality Calculated 295 mOsm/kg (285-295); Potassium 3.8 mmol/L (3.5-5.1); Sodium 142 mmol/L (136-145)
[2023-04-02 19:43] LABS: Estmated Average Glucose 131; Hemoglobin A1C 6.2 % (4.0-6.0)
== END 2023-04-02 08:04 | disposition home or self-care (01) ==
PROVIDERS: PCP Family Medicine; Visit Provider Specialist
DX: Z01.812 Encounter for preprocedural laboratory examination (principal); Z01.810 Encounter for preprocedural cardiovascular examination; Z01.811 Encounter for preprocedural respiratory examination; F31.9 Bipolar disorder, unspecified; J44.9 Chronic obstructive pulmonary disease, unspecified; M54.9 Dorsalgia, unspecified; G89.29 Other chronic pain; I10 Essential (primary) hypertension; E11.9 Type 2 diabetes mellitus without complications
CPT/HCPCS: 71046; 80048; 83036; 93005; 99203

== ENCOUNTER 2023-04-08 14:45 | Inpatient (IN) | payer MEDICARE, MEDICAID, SELFPAY ==
[2023-04-08] VITALS (40 sets, daily range): BP systolic 159–239; BP diastolic 96–155; PULSE 75–103; RESP 14–27; TEMP 36.7–37.2; O2SAT 87–97; BMI 43.0
--- NOTE | 2023-04-08 14:58 | ECG_ITS ---
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 Measurements Intervals [place] Rate: 78 P: 47 MA: 167 QRS: 40 QRSD: 73 T: 38 QT: 371 QTc: 425 Interpretive Statements SINUS RHYTHM WITH MARKED RHYTHM IRREGULARITY, POSSIBLE NON-CONDUCTED PAC Compared to ECG 04/02/2023 09:19:21 No significant changes Electronically Signed On 04-08-2023 16:40:11 CDT by Rebecca Padilla M.D. [id number]
--- NOTE | 2023-04-08 15:00 | XR_ITS ---
WS: [id number] Exam: XR chest 1V portable [id number] Date/Time of Exam: 04/08/2023 3:00 PM Reason For Exam: dyspnea/cough Comparison 04/02/2023. The lungs are clear and fully inflated. No pleural effusions. Heart size top limits normal. Mild plaq ue atelectasis in the LEFT base. Bony structures are intact. The mediastinum is normal in contour. IMPRESSION: 1. Mild plaque atelectasis in the LEFT lower lobe. No acute cardiopulmonary process.
--- NOTE | 2023-04-08 15:15 | ED_ITS ---
Documented by User: BORIS Peter 04/12/23 09:06 HPI - SOB/Dyspnea 2 General: Chief Complaint: Shortness of Breath/Dyspnea Stated Complaint: sob Time Seen by Provider: 04/08/23 15:05 Source: patient Mode of arrival: ambulatory Limitations: no limitations History of Present Illness: HPI Narrative: Patient is a nice 62-year-old female with an extensive PMH here for complaints of dyspnea. She states she felt a little short of breath yesterday evening and felt like it was worse today so decided to be seen. Patient states she has some type of known skin mass in her throat that is scheduled to be excised by Dr. Welch on Wednesday. She feels like she always has some shortness of breath related to this so thinks her symptoms today probably are as well. She states dyspnea doesn't seem to be in my chest and feels like it is related to this mass. States it only seems present when she lies down and is completely asymptomatic at time of my exam. She states she has had a little bit of a headache and a mild cough. Did a rapid home antigen COVID test yesterday which was negative she has not been running fevers. Vital signs are normal upon arrival apart from hypertension-she did not take BP meds this morning. Patient reports history of COPD and does have inhaler she uses daily for this. She has not noticed any weight gain or swelling to her lower extremities. MD elicited complaint: shortness of breath Pertinent past history: COPD Onset (ago): day(s) (yesterday) Timing: constant Severity: mild Exacerbating factors: lying flat Relieving factors: upright position Associated symptoms: Reports orthopnea (chronic); Deny abdominal pain, chest congestion, chest pain, dizziness, extremity pain, fever(s), hemoptysis, lightheadedness, nausea, palpitations, syncope or vomiting Treatment prior to arrival: none Related Data: Home oxygen amount: none Review of Systems 2 Const: Denies: fever(s), chills, body aches, fatigue or malaise ENMT: Reports: throat pain (chronic-scheduled with Rebekah for some type of mass excision) and odynophagia Card: Reports: orthopnea (chronic); Denies: chest pain, palpitations, irregular heart rhythm, edema, swelling of feet/ankles, lightheadedness, syncope, pre-syncope, dyspnea on exertion, leg pain with exertion or acrocyanosis Resp: Reports: dyspnea; Denies: productive cough, non-productive cough, wheezing, stridor, pain on inspiration, change in phlegm color, hemoptysis or chest congestion GI: Denies: abdominal pain, nausea, vomiting or diarrhea : Denies: flank pain, difficulty voiding, dysuria, urinary frequency, urinary urgency or urinary hesitancy Musc: Denies: neck pain, back pain, extremity pain, extremity swelling, joint pain, joint swelling, joint redness or joint warmth Skin/Breast: Denies: rash Neuro: Denies: headache(s), numbness in extremities, weakness in extremities, sensory changes or dizziness PFSH ED 2 PFSH: Medical History (Updated 04/11/23 @ 00:00 by TERESA Wild) Acute back pain with sciatica Alpha galactosidase deficiency Anxiety Arthritis Bipolar 1 disorder Cardiomegaly Chronic back pain COPD (chronic obstructive pulmonary disease) COPD exacerbation Diabetes Dyspnea Elevated blood pressure reading Elevated brain natriuretic peptide (BNP) level Enlarged liver Essential hypertension High cholesterol Hyperlipidemia Hypertension Laryngeal stenosis Neuropathy YUNI (obstructive sleep apnea) Peptic ulcer Seasonal allergies Shortness of breath Tuberculosis Vertigo Surgical History History of History of left knee replacement History of tonsillectomy Status post left hip replacement Family History Grandfather Cancer Maternal-prostate Grandmother Cancer Maternal-unknown Other Bleeding disorder Dementia Diabetes Hyperlipidemia Hypertension Lung disease Psychiatric illness Denies family history of CAD (coronary artery disease) Clotting disorder Chronic kidney disease (CKD) Anesthesia complication Stroke Social History Smoking and tobacco/nicotine status: former use of tobacco/nicotine Alcohol intake: never Substance/Drug Use: current Substance/Drug use frequency: Special occassions/opportunity only Lives independently: Yes Current occupational status: disabled Special colin needs: No Agree to transfusion: Yes Physical Exam 2 Const: COMMON NORMALS: no acute distress, patient oriented x3, no limitations, alert and well nourished GENERAL APPEARANCE: cooperative NUTRITIONAL APPEARANCE: obese morbidly obese (BMI of 43) ORIENTATION/CONSCIOUSNESS: Yes awake, Yes oriented to person, Yes oriented to place and Yes oriented to time HENMT: COMMON NORMALS: normocephalic and atraumatic HEAD & SCALP: normal to inspection, normocephalic and atraumatic FACE & SINUS: normal facial exam MOUTH: Normal oral and palatal mucosa present THROAT: posterior oropharynx normal Neck/C-Spine: COMMON NORMALS: full ROM and Thyroid normal GENERAL: Yes normal visual inspection, No anterior neck swelling, No tracheal deviation and No submandibular swelling THYROID: Thyroid normal Chest: COMMONS NORMALS: normal inspection of the chest Resp: COMMON NORMALS: normal respiratory effort and clear to auscultation bilaterally AUSCULTATION: clear to auscultation bilaterally Cardio: COMMON NORMALS: regular rate and regular rhythm RATE: regular rate RHYTHM: regular rhythm Extremity: COMMON NORMALS: normal to inspection, no joint enlargement, no clubbing, cyanosis or edema, no calf tenderness and no pedal edema GENERAL: Y es normal exam except as noted Neuro: KELSEY COMA SCALE: document GCS findings Kelsey coma scale eye opening: Spontaneous [place] coma scale verbal response: Orientated Kelsey coma scale motor response: Obey commands [place] coma scale total score: 15 COMMON NORMALS: patient oriented x3, moves all extremities, no focal motor deficits and no sensory deficits noted SENSORIUM/ORIENTATION: Yes alert, Yes oriented to person, Yes oriented to place and Yes oriented to time Skin: COMMON NORMALS: no rashes or lesions noted GENERAL SKIN EXAM: no rashes or lesions noted Course 2 Vital Signs: Vital signs: Vital Signs Temperature 98.0 F 04/09/23 20:30 Pulse Rate 92 04/10/23 13:46 Respiratory Rate 18 04/10/23 13:46 Blood Pressure 116/82 04/10/23 12:00 Pulse Oximetry 93 04/10/23 13:46 Oxygen Delivery Me thod Room Air 04/10/23 13:46 Oxygen Flow Rate 2 04/10/23 09:00 MDM - SOB/Dyspnea Lab Data 04/10/23 04:04 04/10/23 04:04 Labs/Radiology: Radiology Impressions Chest CT 04/08/23 19:45 IMPRESSION: 1. Negative for pulmonary embolus. 2. Bibasilar atelectasis versus infiltrate. 3. Emphysematous changes. 4. Cardiomegaly. 5. Coronary artery atherosclerotic calcifications. 6. Hepatic steatosis. 7. Left kidney cyst, negative for follow up. 8. Mild perinephric edema bilaterally likely reflecting renal insufficiency, please correlate for pyelonephritis. 9. Diverticulosis somewhat visualized. COMMENTS: In the absence of a history or active diagnosis of lung cancer, it is recommended that this patient with emphysema be evaluated for enrollment in a low dose CT lung cancer screening program. Laboratory Results WBC 14.22 10^3/uL (3.29-11.43) H 04/08/23 15:18 RBC 4.47 10^6/uL (3.85-5.65) 04/08/23 15:18 Hgb 12.50 g/dL (11.27-16.99) 04/08/23 15:18 Hct 40.1 % (36-47) 04/08/23 15:18 MCV 89.7 fl (85-98) 04/08/23 15:18 MCH 28.0 pg (27-33) 04/08/23 15:18 MCHC 31.2 g/dL (30-55) 04/08/23 15:18 RDW 14.1 % (12.1-15.1) 04/08/23 15:18 Plt Count 488 10^3/cmm (157-399) H 04/08/23 15:18 MPV 9.4 fL (7.4-10.4) 04/08/23 15:18 Neut % (Auto) 79.3 % 04/08/23 15:18 Lymph % (Auto) 11.4 % 04/08/23 15:18 [place] % (Auto) 7.7 % 04/08/23 15:18 Eos % (Auto) 0.4 % 04/08/23 15:18 Baso % (Auto) 0.6 % 04/08/23 15:18 Neut # (Auto) 11.27 10^3/uL (1.8-7.7) H 04/08/23 15:18 Lymph # (Auto) 1.6 10^3/uL (0.8-4.8) 04/08/23 15:18 [place] # (Auto) 1.1 10^3/uL (0.2-0.9) H 04/08/23 15:18 Eos # (Auto) 0.1 10^3/uL (0.0-0.8) 04/08/23 15:18 Baso # (Auto) 0.1 10^3/uL (0.0-0.1) 04/08/23 15:18 Nucleated RBC % (auto) 0 % 04/08/23 15:18 Nucleated RBCs # 0.0 /100WBC 04/08/23 15:18 Sodium 142 mmol/L (136-145) 04/08/23 15:18 Potassium 3.8 mmol/L (3.5-5.1) 04/08/23 15:18 Chloride 101 mmol/L (98-107) 04/08/23 15:18 Carbon Dioxide 29 mmol/L (22-29) 04/08/23 15:18 Anion Gap 15.8 (5-19) 04/08/23 15:18 BUN 9 mg/dL (8-23) 04/08/23 15:18 Creatinine 0.6 mg/dL (0.5-0.9) 04/08/23 15:18 GFR Calculation 101.6 mL/min (90-130) 04/08/23 15:18 Glucose 127 mg/dL (65-115) H 04/08/23 15:18 Calculated Osmolality 294 mOsm/kg (285-295) 04/08/23 15:18 Calcium 9.8 mg/dL (8.5-10.5) 04/08/23 15:18 Total Bilirubin 0.6 mg/dL (0.15-1.2) 04/08/23 15:18 AST 11 U/L (0-32) 04/08/23 15:18 ALT 10 U/L (0-33) 04/08/23 15:18 Alkaline Phosphatase 118 U/L (35-105) H 04/08/23 15:18 Troponin T Baseline 14 ng/L (0-10) H 04/08/23 18:26 Troponin T 120 Minute 15.10 ng/L (0-10) H 04/08/23 20:29 Delta Troponin T 1.10 ABS# (0-10) 04/08/23 20:29 NT-Pro-B Natriuret Pep 1174 pg/mL (0-125) H 04/08/23 18:26 Total Protein 7.2 g/dL (6.6-8.7) 04/08/23 15:18 Albumin 4.4 g/dL (3.5-5.2) 04/08/23 15:18 Globulin 2.8 g/dL (1.3-4.6) 04/08/23 15:18 Procalcitonin 0.03 ng/mL (0-0.5) 04/08/23 15:18 Urine Color Yellow (Yellow) 04/08/23 17:24 Urine Appearance Sl hazy (CLEAR) A 04/08/23 17:24 Urine pH 9 (5-7) H 04/08/23 17:24 Ur Specific [place] 1.015 (1.005-1.030) 04/08/23 17:24 Urine Protein Neg (Negative) 04/08/23 17:24 Urine Glucose (UA) Norm (Normal) 04/08/23 17:24 Urine Ketones 2+ (Negative) H 04/08/23 17:24 Urine Blood Neg (Negative) 04/08/23 17:24 Urine Nitrate Negative (Negative) 04/08/23 17:24 Urine Bilirubin Neg (Negative) 04/08/23 17:24 Prot Sulfosalicylic Acd Negative (Negative) 04/08/23 17:24 Urine Urobilinogen 4 mg/dL (Negative) H 04/08/23 17:24 Ur Leukocyte Esterase Negative (Negative) 04/08/23 17:24 Urine RBC 0-4 /hpf (0-2) H 04/08/23 17:24 Urine WBC 0-4 /hpf (0-5) H 04/08/23 17:24 Ur Squamous Epith Cells 5-10 /hpf (0-5) H 04/08/23 17:24 Amorphous Sediment Not Reportable 04/08/23 17:24 Urine Bacteria Trace /hpf (NONE) 04/08/23 17:24 Coronavirus 229E (PCR) Not detected (NOT DETECT) 04/08/23 15:31 SARS-CoV-2 (PCR) Not detected (NOT DETECT) 04/08/23 15:31 EKG Data EKG 1: EKG Interpretation Date: 04/08/23 EKG interpretation time: 14:58 Interpretation: Sinus rhythm with one period/beat of sinus pause Rate [address] elevation or depression changes noted Reviewed with Dr. Rudd Discharge Plan Discharge Patient Disposition: Admitted As Inpatient Admit Provider: Ankit Bermudez Clinical Impression: Acute exacerbation of chronic obstructive airways disease, Shortness of breath, Elevated blood pressure reading Condition: Stable Discharge Diet: Low Salt, Low Cholesterol and Low Fat Discharge Activity: Increase activity as tolerated Sign Out Sign Out Data: Patient Sign Out occurred on 04/08/23 at 17:19. Patient's care was discussed, and care was transferred from to BORIS Linder. Coding Level of Care Code ED Screenplay Writer for Chg Fwd Documented by User: BORIS Linder 04/08/23 21:58 HPI - SOB/Dyspnea 2 General: Chief Complaint: Shortness of Breath/Dyspnea Stated Complaint: sob Time Seen by Provider: 04/08/23 15:05 PFSH ED 2 PFSH: Medical History (Updated 04/11/23 @ 00:00 by TERESA Wild) Acute back pain with sciatica Alpha galactosidase deficiency Anxiety Arthritis Bipolar 1 disorder Cardiomegaly Chronic back pain COPD (chronic obstructive pulmonary disease) COPD exacerbation Diabetes Dyspnea Elevated blood pressure reading Elevated brain natriuretic peptide (BNP) level Enlarged liver Essential hypertension High cholesterol Hyperlipidemia Hypertension Laryngeal stenosis Neuropathy YUNI (obstructive sleep apnea) Peptic ulcer Seasonal allergies Shortness of breath Tuberculosis Vertigo Surgical History History of History of left knee replacement History of tonsillectomy Status post left hip replacement Family History Grandfather Cancer Maternal-prostate Grandmother Cancer Maternal-unknown Other Bleeding disorder Dementia Diabetes Hyperlipidemia Hypertension Lung disease Psychiatric illness Denies family history of CAD (coronary artery disease) Clotting disorder Chronic kidney disease (CKD) Anesthesia complication Stroke Social History Smoking and tobacco/nicotine status: former use of tobacco/nicotine Alcohol intake: never Substance/Drug Use: current Substance/Drug use frequency: Special occassions/opportunity only Lives independently: Yes Current occupational status: disabled Special colin needs: No Agree to transfusion: Yes Physical Exam 2 Neuro: KELSEY COMA SCALE: document GCS findings [place] coma scale total score: 15 Course 2 Vital Signs: Vital signs: Vital Signs Temperature 98.0 F 04/09/23 20:30 Pulse Rate 92 04/10/23 13:46 Respiratory Rate 18 04/10/23 13:46 Blood Pressure 116/82 04/10/23 12:00 Pulse Oximetry 93 04/10/23 13:46 Oxygen Delivery Me thod Room Air 04/10/23 13:46 Oxygen Flow Rate 2 04/10/23 09:00 MDM - SOB/Dyspnea Medical Decision Making Received transfer of care from Mariela Sales PA-C at 1700. At this time it was thought that the patient was otherwise stable but was being monitored to watch for improvement of blood pressures patient had been treated with Vasotec and hydralazine. She indicated that if patient's blood pressure improved, could be discharged. However, patient's blood pressure was not responding. Given the patient's complaint of shortness of air I did go to patient bedside for second evaluation. Patient clarified to me that she felt like her shortness of breath and difficulty breathing was coming from inside her chest and not her upper airway. Because of this, I did initiate cardiac labs including troponin and BNP. Patient had a slightly elevated BNP and no previous BNP's to compare to. Patient also had a slight elevated troponin-most likely due to the elevated BNP. I had also been consulting with Dr Little during this time who, after seeing the patient's lab work and continued blood pressure readings, added 20 mg of labetalol for blood pressure treatment. Given that the patient's presenting symptoms of shortness of breath and has acutely elevated blood pressure readings not responding to treatment he recommended reaching out to the hospitalist for admission. I did speak with Dr antonio regarding this patient's evaluation. He did have several concerns-especially as patient has some upper airway issues. He was concerned that this was interfering with the patient's presenting symptoms today. He recommended a CT of the patient's chest for further evaluation. He was interested to know if we had ENT coverage but unfortunately, we do not. Dr. Little was able to discuss the case with him as well and after thorough discussion, was agreed that patient should be admitted for further treatment. Differential Diagnosis Likely acute exacerbation of chronic obstructive airways disease and congestive heart failure; Unlikely community acquired pneumonia, asthma with exacerbation or pulmonary embolism Lab Data 04/10/23 04:04 04/10/23 04:04 Labs/Radiology: Radiology Impressions Chest CT 04/08/23 19:45 IMPRESSION: 1. Negative for pulmonary embolus. 2. Bibasilar atelectasis versus infiltrate. 3. Emphysematous changes. 4. Cardiomegaly. 5. Coronary artery atherosclerotic calcifications. 6. Hepatic steatosis. 7. Left kidney cyst, negative for follow up. 8. Mild perinephric edema bilaterally likely reflecting renal insufficiency, please correlate for pyelonephritis. 9. Diverticulosis somewhat visualized. COMMENTS: In the absence of a history or active diagnosis of lung cancer, it is recommended that this patient with emphysema be evaluated for enrollment in a low dose CT lung cancer screening program. Laboratory Results WBC 14.22 10^3/uL (3.29-11.43) H 04/08/23 15:18 RBC 4.47 10^6/uL (3.85-5.65) 04/08/23 15:18 Hgb 12.50 g/dL (11.27-16.99) 04/08/23 15:18 Hct 40.1 % (36-47) 04/08/23 15:18 MCV 89.7 fl (85-98) 04/08/23 15:18 MCH 28.0 pg (27-33) 04/08/23 15:18 MCHC 31.2 g/dL (30-55) 04/08/23 15:18 RDW 14.1 % (12.1-15.1) 04/08/23 15:18 Plt Count 488 10^3/cmm (157-399) H 04/08/23 15:18 MPV 9.4 fL (7.4-10.4) 04/08/23 15:18 Neut % (Auto) 79.3 % 04/08/23 15:18 Lymph % (Auto) 11.4 % 04/08/23 15:18 [place] % (Auto) 7.7 % 04/08/23 15:18 Eos % (Auto) 0.4 % 04/08/23 15:18 Baso % (Auto) 0.6 % 04/08/23 15:18 Neut # (Auto) 11.27 10^3/uL (1.8-7.7) H 04/08/23 15:18 Lymph # (Auto) 1.6 10^3/uL (0.8-4.8) 04/08/23 15:18 [place] # (Auto) 1.1 10^3/uL (0.2-0.9) H 04/08/23 15:18 Eos # (Auto) 0.1 10^3/uL (0.0-0.8) 04/08/23 15:18 Baso # (Auto) 0.1 10^3/uL (0.0-0.1) 04/08/23 15:18 Nucleated RBC % (auto) 0 % 04/08/23 15:18 Nucleated RBCs # 0.0 /100WBC 04/08/23 15:18 Sodium 142 mmol/L (136-145) 04/08/23 15:18 Potassium 3.8 mmol/L (3.5-5.1) 04/08/23 15:18 Chloride 101 mmol/L (98-107) 04/08/23 15:18 Carbon Dioxide 29 mmol/L (22-29) 04/08/23 15:18 Anion Gap 15.8 (5-19) 04/08/23 15:18 BUN 9 mg/dL (8-23) 04/08/23 15:18 Creatinine 0.6 mg/dL (0.5-0.9) 04/08/23 15:18 GFR Calculation 101.6 mL/min (90-130) 04/08/23 15:18 Glucose 127 mg/dL (65-115) H 04/08/23 15:18 Calculated Osmolality 294 mOsm/kg (285-295) 04/08/23 15:18 Calcium 9.8 mg/dL (8.5-10.5) 04/08/23 15:18 Total Bilirubin 0.6 mg/dL (0.15-1.2) 04/08/23 15:18 AST 11 U/L (0-32) 04/08/23 15:18 ALT 10 U/L (0-33) 04/08/23 15:18 Alkaline Phosphatase 118 U/L (35-105) H 04/08/23 15:18 Troponin T Baseline 14 ng/L (0-10) H 04/08/23 18:26 Troponin T 120 Minute 15.10 ng/L (0-10) H 04/08/23 20:29 Delta Troponin T 1.10 ABS# (0-10) 04/08/23 20:29 NT-Pro-B Natriuret Pep 1174 pg/mL (0-125) H 04/08/23 18:26 Total Protein 7.2 g/dL (6.6-8.7) 04/08/23 15:18 Albumin 4.4 g/dL (3.5-5.2) 04/08/23 15:18 Globulin 2.8 g/dL (1.3-4.6) 04/08/23 15:18 Procalcitonin 0.03 ng/mL (0-0.5) 04/08/23 15:18 Urine Color Yellow (Yellow) 04/08/23 17:24 Urine Appearance Sl hazy (CLEAR) A 04/08/23 17:24 Urine pH 9 (5-7) H 04/08/23 17:24 Ur Specific [place] 1.015 (1.005-1.030) 04/08/23 17:24 Urine Protein Neg (Negative) 04/08/23 17:24 Urine Glucose (UA) Norm (Normal) 04/08/23 17:24 Urine Ketones 2+ (Negative) H 04/08/23 17:24 Urine Blood Neg (Negative) 04/08/23 17:24 Urine Nitrate Negative (Negative) 04/08/23 17:24 Urine Bilirubin Neg (Negative) 04/08/23 17:24 Prot Sulfosalicylic Acd Negative (Negative) 04/08/23 17:24 Urine Urobilinogen 4 mg/dL (Negative) H 04/08/23 17:24 Ur Leukocyte Esterase Negative (Negative) 04/08/23 17:24 Urine RBC 0-4 /hpf (0-2) H 04/08/23 17:24 Urine WBC 0-4 /hpf (0-5) H 04/08/23 17:24 Ur Squamous Epith Cells 5-10 /hpf (0-5) H 04/08/23 17:24 Amorphous Sediment Not Reportable 04/08/23 17:24 Urine Bacteria Trace /hpf (NONE) 04/08/23 17:24 Coronavirus 229E (PCR) Not detected (NOT DETECT) 04/08/23 15:31 SARS-CoV-2 (PCR) Not detected (NOT DETECT) 04/08/23 15:31 All radiology interpretation(s) finalized by discharge Discharge Plan Discharge Patient Disposition: Admitted As Inpatient Admit Provider: Ankit Bermudez Clinical Impression: Acute exacerbation of chronic obstructive airways disease, Shortness of breath, Elevated blood pressure reading Condition: Stable Discharge Diet: Low Salt, Low Cholesterol and Low Fat Discharge Activity: Increase activity as tolerated Sign Out Sign Out Data: Patient Sign Out occurred on 04/08/23 at 17:19. Patient's care was discussed, and care was transferred from to BORIS Linder. Coding Level of Care Code ED Screenplay Writer for Emerald Castillo
[2023-04-08 15:27] LABS: Basophils # 0.1 10^3/uL (0.0-0.1); Basophils % 0.6 %; Eosinophils # 0.1 10^3/uL (0.0-0.8); Eosinophils % 0.4 %; Hematocrit 40.1 % (36-47); Lymphocytes # 1.6 10^3/uL (0.8-4.8); Lymphocytes % 11.4 %; Mean Corpuscular HGB Conc 31.2 g/dL (30-55); Mean Corpuscular Volume 89.7 fl (85-98); Mean Platelet Volume 9.4 fL (7.4-10.4); Monocytes # 1.1 10^3/uL (0.2-0.9); Monocytes % 7.7 %; Neutrophils # 11.27 10^3/uL (1.8-7.7); Neutrophils % 79.3 %; Nucleated Red Blood Cells % 0 %; Platelet Count 488 10^3/cmm (157-399); Red Blood Count 4.47 10^6/uL (3.85-5.65); Red Cell Distribution Width 14.1 % (12.1-15.1); White Blood Count 14.22 10^3/uL (3.29-11.43)
[2023-04-08 15:49] LABS: Alanine Aminotransferase 10 U/L (0-33); Albumin Level 4.4 g/dL (3.5-5.2); Alkaline Phosphatase 118 U/L (35-105); Anion Gap 15.8 (5-19); Aspartate Amino Transferase 11 U/L (0-32); Blood Urea Nitrogen 9 mg/dL (8-23); Calcium 9.8 mg/dL (8.5-10.5); Carbon Dioxide 29 mmol/L (22-29); Chloride 101 mmol/L (98-107); Globulin 2.8 g/dL (1.3-4.6); Glomerular Filtration Rate 101.6 mL/min (90-130); Glucose 127 mg/dL (65-115); Osmolality Calculated 294 mOsm/kg (285-295); Potassium 3.8 mmol/L (3.5-5.1); Sodium 142 mmol/L (136-145); Total Bilirubin 0.6 mg/dL (0.15-1.2); Total Protein 7.2 g/dL (6.6-8.7)
[2023-04-08 15:56] LABS: Procalcitonin 0.03 ng/mL (0-0.5)
[2023-04-08] MEDS: enalaprilat 2.5 mg/2 mL SDV 1.25 MG IVP (16:11)
[2023-04-08] MEDS: hyDRALAzine 20 mg/mL INJ 1 mL 10 MG IVP (17:04)
[2023-04-08 17:49] LABS: Bilirubin Urine Neg (Negative); Blood Urine Neg (Negative); Glucose Urine UA Norm (Normal); Ketones Urine 2+ (Negative); Nitrate Urine Negative (Negative); Protein Urine Neg (Negative); Specific Gravity, Urine 1.015 (1.005-1.030); Urine Appearance SL Hazy (CLEAR); Urine Color Yellow (Yellow); pH Urine 9 (5-7)
[2023-04-08 17:50] LABS: Add Urine Culture? No; Add Urine Microscopic? YES; Bacteria Urine TRACE /hpf; Leukocyte Esterase Urine Negative (Negative); RBC Urine 0-4 /hpf (0-2); Sulfosalicylic Acid Urine Negative (Negative); Urobilinogen Urine 4 mg/dL (Negative); WBC Urine 0-4 /hpf (0-5)
[2023-04-08] MEDS: ipratropium-albuterol 3 mL Neb INHALATION (18:22)
[2023-04-08] MEDS: labetalol 5 mg/mL SDV 20mL 20 MG IVP (19:07)
[2023-04-08 19:10] LABS: Troponin(5th) Baseline 14 ng/L (0-10)
[2023-04-08 19:18] LABS: NT Pro B Type Natriuretic Pept 1174 pg/mL (0-125)
--- NOTE | 2023-04-08 19:45 | CTR_ITS ---
PROCEDURE INFORMATION: Exam: CT Chest With Contrast; Diagnostic Exam date and time: 04/08/2023 8:44 PM Age: 62 years old Clinical indication: Shortness of breath; Additional info: Elevated BP and wbc, order per hospitalist- evmeghann for aspiration pneumonitis TECHNIQUE: Imaging protocol: Diagnostic computed tomography of the chest with contrast. Radiation optimization: All CT scans at this facility use at least one of these dose optimization techniques: automated exposure control; mA and/or kV adjustment per patient size (includes targeted exams where dose is matched to clinical indication); or iterative reconstruction. Contrast material: OMNI 350; Contrast volume: 100 ml; Contrast route: INTRAVENOUS (IV); REPORTING DATA: Count of CT and Cardiac NM exams in prior 12 months: This patient has received 5 known CTs and 0 known cardiac nuclear medicine studies in the 12 months prior to the current study. COMPARISON: CR XR chest 1V portable [id number] 04/08/2023 3:35 PM RADIATION DOSE METRICS: Total DLP (mGy-cm): 712 FINDINGS: Lungs: Bibasilar atelectasis versus infiltrate. Emphysematous changes. Pleural spaces: Unremarkable. No pneumothorax. No pleural effusion. Heart: Cardiomegaly. Coronary arteries: Coronary artery atherosclerotic calcifications. Lymph nodes: Unremarkable. No enlarged lymph nodes. Vasculature: Unremarkable. No aortic aneurysm. Liver: Hepatic steatosis. Kidneys and ureters: Left kidney cyst, negative for follow up. Mild perinephric edema bilaterally likely reflecting renal insufficiency, please correlate for pyelonephritis. Stomach and bowel: Diverticulosis somewhat visualized. Bones/joints: Unremarkable. No acute fracture. Soft tissues: Unremarkable. CT/CT chest w con* [id number] IMPRESSION: 1. Negative for pulmonary embolus. 2. Bibasilar atelectasis versus infiltrate. 3. Emphysematous changes. 4. Cardiomegaly. 5. Coronary artery atherosclerotic calcifications. 6. Hepatic steatosis. 7. Left kidney cyst, negative for follow up. 8. Mild perinephric edema bilaterally likely reflecting renal insufficiency, please correlate for pyelonephritis. 9. Diverticulosis somewhat visualized. COMMENTS: In the absence of a history or active diagnosis of lung cancer, it is recommended that this patient with emphysema be evaluated for enrollment in a low dose CT lung cancer screening program.
--- NOTE | 2023-04-08 19:50 | ECG_ITS ---
[facility] Test Date: 2023-04-08 Pat Name: Vivian Merritt Department: Room: Gender: Female [employer]ed [employer] Photographer: : 1960 Requested By: Gena Balderas Order Number: [id number] Sanjeev MD: Rebecca Padilla M.D. Measurements Intervals [place] Rate: 82 P: 30 FL: 166 QRS: 14 QRSD: 77 T: 18 QT: 390 QTc: 458 Interpretive Statements SINUS RHYTHM WITH OCCASIONAL SUPRAVENTRICULAR PREMATURE COMPLEXES Compared to ECG 04/08/2023 14:58:08 No significant changes Electronically Signed On 04-08-2023 20:00:06 CDT by Rebecca Padilla M.D. [id number]
[2023-04-08 20:02] LABS: Adenovirus Not Detected (NOT DETECT); Chlamydia Pneumoniae Not Detected (NOT DETECT); Coronavirus 229E,HKU1,NL63,OC4 Not Detected (NOT DETECT); Human Metapneumovirus Not Detected (NOT DETECT); Human Rhinovirus/Enterovirus Not Detected (NOT DETECT); Influenza A Not Detected (NOT DETECT); Influenza A H1 Not Detected (NOT DETECT); Influenza A H1-2009 Not Detected (NOT DETECT); Influenza A H3 Not Detected (NOT DETECT); Influenza B Not Detected (NOT DETECT); Mycoplasma Pneumoniae Not Detected (NOT DETECT); Parainfluenza Virus Type 1 Not Detected (NOT DETECT); Parainfluenza Virus Type 2 Not Detected (NOT DETECT); Parainfluenza Virus Type 3 Not Detected (NOT DETECT); Parainfluenza Virus Type 4 Not Detected (NOT DETECT); Respiratory Syncytial Virus A Not Detected (NOT DETECT); Respiratory Syncytial Virus B Not Detected (NOT DETECT); SARS-COV-2 Not Detected (NOT DETECT)
[2023-04-08] MEDS: iohexol 350 mg/mL 500 mL Btl (per mL) IV (20:46)
[2023-04-08] MEDS: nitroglycerin drip 50 MG/250 ML PREMIX IV (20:52)
--- NOTE | 2023-04-08 21:42 | PM.HP ---
Providers/Chief Complaint Primary Care Provider: Kleber Johnson MD Chief Complaint: sob History of Present Illness Pleasant 62-year-old lady with history of Alpha-Gal syndrome, COPD, YUNI, has not used her CPAP in the last several nights, HTN, HLD, PAD, neuropathy, alpha glucosidase deficiency, seasonal allergies, chronic back pain, anxiety, other medical problems. Was called with request for admission due to uncontrolled hypertension despite multiple including intravenous medications administered in the ER where she initially presented due to dyspnea. Noted with mild leukocytosis 14.2, but afebrile, without cough, sputum production, chest x-ray with platelike atelectasis left lower lobe, unremarkable procalcitonin. Noted CT neck in February with some reported narrowing of the epiglottis, but possibly artifactual related to timing of the imaging study. Denied sensation of airway obstruction, dysphagia, or choking or aspiration. Per discussion with PA scheduled for assessment with biopsy of laryngeal lesion on Wednesday, discussed to confirm availability of ENT. Per discussion with ER physician, ENT unavailable, but regarding laryngeal narrowing that was reported is likely artifactual, ER physician reviewed her recent preceding laryngoscopy reporting no findings of laryngeal narrowing, reporting a finding of nonobstructive lesion thus she was deemed safe for admission here. COVID PCR panel in ER is negative. Noted new abnormality with NT-proBNP elevated at 1174. Troponin is minimally elevated without rise. Contrast CT chest obtained in ER without PE, but basilar atelectasis versus infiltrate, emphysematous changes. Cardiomegaly. Coronary artery calcification. Hepatic steatosis. Likely kidney cyst, negative for follow-up. Mild perinephric edema bilaterally likely reflecting renal insufficiency. Correlate for pyelonephritis. Diverticulosis. She also had an episode of soft stool/diarrhea yesterday. Review of Systems Const: Denies: fever(s), chills, body aches or malaise ENMT: Denies: throat pain Card: Denies: chest pain, edema, pre-syncope or dyspnea on exertion Resp: Reports: dyspnea; Denies: productive cough, change in phlegm color or hemoptysis GI: Reports: diarrhea; Denies: abdominal pain, nausea, vomiting, constipation, hematochezia or melena : Denies: flank pain, urinary frequency or hematuria Musc: Denies: back pain, joint swelling or joint redness Skin/Breast: Denies: rash or new lesions Neuro: Denies: headache(s), numbness in extremities, weakness in extremities, dizziness, confusion or seizure-like activity Endo: Denies: polyuria or polydipsia Medications/Allergies Home Medications Medication Instructions Recorded Confirmed Last Taken Type albuterol sulfate 2.5 mg/3 mL 2.5 mg inhalation Q4H PRN 03/21/21 04/08/23 10/18/22 History (0.083 %) solution for nebulization Shortness Of Breath alprazolam 1 mg tablet 1 mg PO TID PRN Anxiety 03/21/21 04/08/23 04/07/23 History pravastatin 20 mg tablet 20 mg PO QPM 03/21/21 04/08/23 04/07/23 History dicyclomine 10 mg capsule 10 mg PO BID 01/20/22 04/08/23 04/07/23 History epinephrine 0.3 mg/0.3 mL 0.3 mg IM Q4H PRN Anaphylaxis 02/18/22 04/08/23 Unknown History injection, auto-injector gabapentin 600 mg tablet 1,800 mg PO BID 03/03/22 04/08/23 04/07/23 History pantoprazole 40 mg tablet,delayed 20 mg PO BEDTIME 03/03/22 04/08/23 04/07/23 History release (Protonix) tiotropium bromide 2.5 1 puff inhalation DAILY #4 grams 11/23/22 04/08/23 04/07/23 Rx mcg/actuation mist for inhalation (Spiriva Respimat) lisinopril 10 mg tablet 10 mg PO QAM #90 tabs 12/09/22 04/08/23 04/07/23 Rx CPAP mask, tubing, supplies #1 ea 03/02/23 04/08/23 Unknown Rx budesonide-formoterol HFA 160 3 puff inhalation BID #10.2 grams 03/12/23 04/08/23 04/07/23 Rx mcg-4.5 mcg/actuation aerosol inhaler (Symbicort) naproxen 500 mg tablet See Rx Instructions .Route 03/17/23 04/08/23 04/07/23 Rx .COMPLEX #60 tabs chlorzoxazone 500 mg tablet 1,000 mg PO BID 30 days #120 tabs 03/31/23 04/08/23 04/07/23 Rx aripiprazole 5 mg tablet (Abilify) 5 mg PO DAILY #30 tabs 04/05/23 04/08/23 04/07/23 Rx fluticasone propionate 50 2 spray intranasal DAILY PRN 04/05/23 04/08/23 Unknown Rx mcg/actuation nasal Allergy Symptoms #16 grams spray,suspension ibuprofen 600 mg tablet 600 mg PO TID PRN pain #120 tabs 04/05/23 04/08/23 Unknown Rx eszopiclone 3 mg tablet 3 mg PO BEDTIME 04/08/23 04/08/23 04/07/23 History Allergies Allergy/AdvReac Type Severity Reaction Status Date / Time [place] And Derivatives Allergy Intermediate swelling Verified 04/08/23 16:30 montelukast Allergy Intermediate swelling Verified 04/08/23 16:30 metronidazole Allergy Mild rash Verified 04/08/23 16:30 tramadol Allergy Mild Ears Ring Verified 04/08/23 16:30 and sees black spots Alpha-Gal Allergy ALGY-Anaphy Verified 04/08/23 16:30 (Brgdbutyj-Mojla-9,3-Gala laxis Milk Containing Products Allergy ALGY-Difficulty Verified 04/08/23 16:30 (Dairy) Swallowing [Milk Containing Products] aripiprazole AdvReac Intermediate ADR-Headach Verified 04/08/23 16:30 e red meat Allergy Severe anaphylaxis Uncoded 04/05/23 08:25 PFSH Acute PFSH: Medical History (Updated 04/08/23 @ 22:24 by Ankit Bermudez MD) Acute back pain with sciatica Alpha galactosidase deficiency Anxiety Arthritis Bipolar 1 disorder Chronic back pain COPD (chronic obstructive pulmonary disease) COPD exacerbation Diabetes Enlarged liver Essential hypertension High cholesterol Hyperlipidemia Hypertension Neuropathy YUNI (obstructive sleep apnea) Peptic ulcer Seasonal allergies Tuberculosis Vertigo Surgical History History of History of left knee replacement History of tonsillectomy Status post left hip replacement Family History Grandfather Cancer Maternal-prostate Grandmother Cancer Maternal-unknown Other Bleeding disorder Dementia Diabetes Hyperlipidemia Hypertension Lung disease Psychiatric illness Denies family history of CAD (coronary artery disease) Clotting disorder Chronic kidney disease (CKD) Anesthesia complication Stroke Social History Smoking and tobacco/nicotine status: former use of tobacco/nicotine Alcohol intake: never Substance/Drug Use: current Substance/Drug use frequency: Special occassions/opportunity only Lives independently: Yes Current occupational status: disabled Special colin needs: No Agree to transfusion: Yes Vitals/I&O/Wt Last Vital Signs Temp 98.0 F 04/08/23 14:59 Pulse 88 04/08/23 19:08 Resp 20 H 04/08/23 19:08 BP 214/128 04/08/23 19:08 Pulse Ox 97 04/08/23 19:08 O2 Del Method Room Air 04/08/23 18:20 04/08/23 04/08/23 04/08/23 06:59 14:59 22:59 Intake Total 1.875 / 1.875 Balance 1.875 / 1.875 Weight last 48 hrs Weight 99.79 kg Physical Exam Const: COMMON NORMALS: patient oriented x3 and alert GENERAL APPEARANCE: cooperative NUTRITIONAL APPEARANCE: obese ORIENTATION/CONSCIOUSNESS: Yes awake HENMT: COMMON NORMALS: oropharynx normal Neck/C-Spine: COMMON NORMALS: no JVD Resp: COMMON NORMALS: normal respiratory effort and clear to auscultation bilaterally AUSCULTATION: clear to auscultation bilaterally Cardio: COMMON NORMALS: no JVD, regular rhythm, S1 normal heart sound present, S2 normal heart sound present and No murmurs present (Cardio) RHYTHM: regular rhythm HEART SOUNDS: S1 normal heart sound present and S2 normal heart sound present GI: COMMON NORMALS: Normal to inspection, nondistended, normoactive bowel sounds present, Soft to palpation and non-tender PALPATION: Yes Soft to palpation Extremity: COMMON NORMALS: no joint enlargement and no pedal edema Neuro: COMMON NORMALS: patient oriented x3 and moves all extremities SENSORIUM/ORIENTATION: Yes alert Skin: COMMON NORMALS: no rashes or lesions noted GENERAL SKIN EXAM: no rashes or lesions noted Data 04/08/23 15:18 04/08/23 15:18 A&P Assessment and plan (1) Hypertensive urgency: Severely elevated blood pressure in ER on review. Also associated with dyspnea. Symptomatic hypertensive urgency, unresponsive to treatment with IV medications, enalaprilat, hydralazine, labetalol. Discussed with ER physician, ER documentation reviewed. She is started on nitroglycerin drip, admitted to intensive care unit. Concern for progression to congestive heart failure, developing pulmonary edema. Noted elevated NT proBNP on review. No obvious edema on review of chest x-ray. Noted cardiomegaly on CT. No chest pain. Reviewed troponins, minimal elevation of troponin noted. Complete troponin EKG series. Assess TTE. Cardiac monitoring. Severe symptomatic persistent hypotension at risk of congestive heart failure, myocardial ischemia, other cardiovascular complications. Monitor blood pressure with nitroglycerin drip, at risk of hypotension, methemoglobinemia. Increase lisinopril dose to 20 mg. Cardiac diet. (2) Dyspnea: Possibly secondary to severe uncontrolled hypertension with hypertensive urgency, treat as above. Does have underlying COPD but this does not appear to be in exacerbation. Question of laryngeal stenosis, but possibly artifactual on CT as per ER physician. On review of the procedure/cholangioscopy by ENT did have difficult access and were not able to biopsy the lesion. Still could have a degree of laryngeal stenosis for unclear cause. May benefit from assessment with pulmonary function testing. Follow-up with ENT. Atelectasis noted in left lower lobe, CT bibasilar. Discussed with her incentive spirometer. Additionally has not used her CPAP for YUNI in the last several nights. Resume CPAP, should likely help her blood pressure as well. Reviewed COVID PCR panel noted negative. Reviewed procalcitonin, noted unremarkable. Otherwise does not appear to have symptoms or signs of bacterial pneumonia, for now not started on any antibiotics. Monitor and reassess. Elevated NT proBNP, assess additional causes, assess for valvular heart disease with TTE. (3) Elevated brain natriuretic peptide (BNP) level: Possibility of pulmonary edema/decompensation CHF secondary to hypertensive urgency. But other causes possible, possibility of valvular heart disease contributing to her symptoms. Assess TTE. (4) Cardiomegaly: Assessed by TTE Would benefit from optimization of hypertension control. At home on lisinopril 10 mg. (5) Laryngeal stenosis: Question of laryngeal stenosis, but possibly artifactual on CT as per ER physician. On review of the procedure/cholangioscopy by ENT did have difficult access and were not able to biopsy the lesion. Still could have a degree of laryngeal stenosis for unclear cause. May benefit from assessment with pulmonary function testing. Follow-up with ENT. (6) Atelectasis: Incentive spirometer. Resume CPAP for YUNI nightly. (7) Leukocytosis: Possibly stress related, otherwise no obvious acute infection. Some perinephric edema, but otherwise symptoms, urine studies not suggestive of UTI/pyelonephritis. Will reassess CBC. Procalcitonin reviewed. Plan Laryngeal lesion: Follow-up with ENT for biopsy. YUNI: Did not use her CPAP in the last several nights. Resume CPAP. Untreated YUNI may be contributing to uncontrolled hypertension. Diarrhea: Soft stool. So far without recurrence. Monitor. COVID PCR panel negative. Hepatic steatosis: Follow-up with PCP. Low-cholesterol diet. Perinephric edema: Incidentally noted on CT, suspect secondary to CKD, correlate for pyelonephritis, but has not had any urinary symptoms. UA not suggestive of UTI. Does have leukocytosis 14.2, afebrile. Monitor for any change in symptoms. Reassess CBC. Likely kidney cyst, negative for follow-up incidentally noted on CT. Diverticulosis: Incidentally noted on CT Alpha-Gal syndrome COPD, not in exacerbation. DuoNebs. Budesonide. HLD, PAD, Neuropathy, Alpha glucosidase deficiency, Seasonal allergies, Chronic back pain, Anxiety, Other medical problems On questionnaire by nursing reports Hx of tuberculosis 30 years ago. Will inquire whether completed treatment. Reported got treatmetn with INH in 1994- in [facility] [place]. Reports history of positive skin tests. No other symptoms to indicate active infection. Will need follow-up. Attestations Medical Necessity Statement*: Admission of over 2 midnights anticipated for assessment management of hypertensive urgency with severe symptomatic hypotension with dyspnea, possible early pulmonary edema/CHF, additional cardiac assessment, and lady with comorbidities as above. Coding Level of Care Code Critical Care >/= 30 minutes Critical care time (in minutes): 35 The high probability of a clinically significant, sudden or life threatening deterioration, as referenced in this documentation, required my full and direct attention, intervention and personal management. The critical care time shown is in addition to time spent performing any reported separately billable procedures and includes the following: [x] Data and vital sign review and interpretation [x] Patient assessment, examination and intervention [x] Medication orders and management [x] Patient/Family updates as able [x] Care Coordination and Documentation. Diagnoses Hypertensive urgency I16.0 Dyspnea R06.00 Elevated brain natriuretic peptide (BNP) level R79.89 Cardiomegaly I51.7 Laryngeal stenosis J38.6 Atelectasis J98.11 Leukocytosis D72.829
--- NOTE | 2023-04-08 22:02 | USCV_ITS ---
Vivian Merritt Age: 62 Gender: F : 1960 Exam Date: 04/08/2023 23:15 Ordering Phys: Ankit Bermudez MD Technologist: DESTINY Exam Location: [facility] [place] Indication: dyspnea, elevated BNP, assess for EF, No history of cardiac intervention per patient. O2 dependent COPD history. BP: 211 / 137 HR: 86 Rhythm: Sinus Technical Quality: Adequate MEASUREMENTS (Male / Female) Normal Values 2D ECHO LV Diastolic Diameter PLAX 4.5 cm 4.2 - 5.9 / 3.9 - 5.3 cm LV Systolic Diameter PLAX 3.0 cm IVS Diastolic Thickness 1.7 cm 0.6 - 1.0 / 0.6 - 0.9 cm IVS Systolic Thickness 2.2 cm LVPW Diastolic Thickness 1.7 cm 0.6 - 1.0 / 0.6 - 0.9 cm LVPW Systolic Thickness 2.6 cm LVOT Diameter 2.1 cm LV Ejection Fraction 2D Teich 60.6 % LV Ejection Fraction MOD 2C 62.2 % LV Ejection Fraction 2C AL 62.9 % LA Diameter 3.7 cm LA Width 4.0 cm LA Height 6.3 cm RA Width 2.7 cm RA Height 4.9 cm Aorta at Sinotubular Diameter 2.3 cm IVC Diameter 1.7 cm M-MODE Aortic Annulus Diameter 3.3 cm LA Ao Ratio MM 1.1 MV E Point Septal Separation 0.4 cm DOPPLER AV Peak Velocity 108.0 cm/s LVOT Peak Velocity 85.0 cm/s AV Area Cont Eq vti 2.1 cm squared AV Area Cont Eq pk 2.9 cm squared MV Area PHT 4.0 cm squared Mitral E to A Ratio 1.1 MV E' Velocity 42.0 cm/s Mitral E to MV E' Ratio 10.4 Mitral E to LV E' Lateral Ratio 9.5 Mitral E to LV E' Septal Ratio 11.5 TV Peak E Velocity 36.0 cm/s PV Peak Velocity 104.0 cm/s RV Acceleration Time 0.1 s RV Ejection Time 0.3 s RV AcT/ET 0.2 FINDINGS Left Ventricle Normal left ventricular size, systolic function and wall thickness, with no regional wall motion abnormalities. Left ventricular ejection fraction is estimated at 70 %. Grade II diastolic dysfunction, moderately elevated filling pressures. Right Ventricle Normal right ventricular size and systolic function. RVSP could not be calculated due to incomplete tricuspid regurgitation velocity profile. Right Atrium Normal right atrial size. Left Atrium Mildly increased left atrial size. Mitral Valve Structurally normal mitral valve. No mitral valve stenosis. Trace mitral valve regurgitation. Aortic Valve Mildly thickened trileaflet aortic valve. No aortic valve stenosis. No aortic valve regurgitation. Tricuspid Valve Structurally normal tricuspid valve. No tricuspid valve stenosis. Trace tricuspid valve regurgitation. Pulmonic Valve Structurally normal pulmonic valve. No pulmonary valve stenosis. No pulmonary valve regurgitation. Pericardium No pericardial effusion. Aorta Normal size aortic root and proximal ascending aorta. IVC Normal IVC dimension with >50% respiratory change of the inferior vena cava. CONCLUSIONS 1. Normal left ventricular size, systolic function and wall thickness, with no regional wall motion abnormalities. Left ventricular ejection fraction is estimated at 70 %. Grade II diastolic dysfunction, moderately elevated filling pressures. 2. Normal right ventricular size and systolic function. 3. No prior similar studies to compare. Rebecca Padilla MD (Electronically Signed) Final Date: 09 April 2023 12:53 S
[2023-04-08] MEDS: pantoprazole DR 40 mg Tablet 20 MG PO (23:51)
[2023-04-09] VITALS (54 sets, daily range): BP systolic 100–194; BP diastolic 66–130; PULSE 76–111; RESP 10–24; TEMP 36.7–37.1; O2SAT 87–96
[2023-04-09 01:06] LABS: Troponin 5 6HR 14.06 ng/L (0-10)
[2023-04-09 01:12] LABS: Troponin 5 6HR Delta 0.06 ng/L (0-12)
[2023-04-09] MEDS: ipratropium-albuterol 3 mL Neb INHALATION ×4 (02:35→20:16)
[2023-04-09] MEDS: acetaminophen 325 mg Tablet 650 MG PO (04:28)
[2023-04-09 05:05] LABS: Basophils # 0.1 10^3/uL (0.0-0.1); Basophils % 0.6 %; Eosinophils % 0.2 %; Hematocrit 39.3 % (36-47); Lymphocytes # 1.7 10^3/uL (0.8-4.8); Mean Corpuscular Hemoglobin 27.9 pg (27-33); Mean Corpuscular Volume 89.9 fl (85-98); Mean Platelet Volume 9.6 fL (7.4-10.4); Monocytes # 1.1 10^3/uL (0.2-0.9); Monocytes % 8.6 %; Neutrophils # 9.42 10^3/uL (1.8-7.7); Neutrophils % 76.3 %; Nucleated Red Blood Cells % 0 %; Platelet Count 494 10^3/cmm (157-399); Red Blood Count 4.37 10^6/uL (3.85-5.65); Red Cell Distribution Width 14.4 % (12.1-15.1); White Blood Count 12.36 10^3/uL (3.29-11.43)
[2023-04-09] MEDS: lisinopril 10 mg Tablet 20 MG PO (05:05)
[2023-04-09 05:28] LABS: Alanine Aminotransferase 7 U/L (0-33); Albumin Level 4.2 g/dL (3.5-5.2); Alkaline Phosphatase 118 U/L (35-105); Anion Gap 16.7 (5-19); Aspartate Amino Transferase 13 U/L (0-32); Blood Urea Nitrogen 11 mg/dL (8-23); Calcium 9.7 mg/dL (8.5-10.5); Carbon Dioxide 26 mmol/L (22-29); Chloride 100 mmol/L (98-107); Globulin 2.9 g/dL (1.3-4.6); Glomerular Filtration Rate 101.6 mL/min (90-130); Glucose 145 mg/dL (65-115); Osmolality Calculated 290 mOsm/kg (285-295); Potassium 3.7 mmol/L (3.5-5.1); Sodium 139 mmol/L (136-145); Total Bilirubin 0.6 mg/dL (0.15-1.2); Total Protein 7.1 g/dL (6.6-8.7)
[2023-04-09] MEDS: ondansetron 2 mg/ML SDV 2 mL 4 MG IVP (05:52)
[2023-04-09] MEDS: budesonide 0.5 mg/2 mL Neb 0.25 MG INHALATION ×2 (07:59→20:16)
[2023-04-09] MEDS: ARIPiprazole 10 mg Tablet 5 MG PO (09:36)
[2023-04-09] MEDS: dicyclomine 10 mg Capsule PO ×2 (09:37→17:38)
[2023-04-09] MEDS: gabapentin 300 mg Capsule 1800 MG PO (09:37)
--- NOTE | 2023-04-09 11:00 | P.PN_ITS ---
Subjective Subjective: Patient feels better. She mostly complains of pain. Vitals/I&O/Wt Last Vital Signs Temp 98.0 F 04/09/23 20:30 Pulse 86 04/10/23 09:00 Resp 13 04/10/23 09:00 BP 122/73 04/10/23 09:00 Pulse Ox 96 04/10/23 09:00 O2 Del Method Nasal Cannula 04/10/23 09:00 O2 Flow Rate 2 04/10/23 09:00 04/09/23 04/10/23 04/10/23 22:59 06:59 14:59 Intake Total 840 / 1540.375 360 / 360 Output Total 300 / 600 250 / 850 Balance 540 / 940.375 -250 / 690.375 360 / 360 Weight last 48 hrs Weight 99.79 kg Physical Exam Const: GENERAL APPEARANCE: cooperative NUTRITIONAL APPEARANCE: obese ORIENTATION/CONSCIOUSNESS: Yes awake Resp: COMMON NORMALS: normal respiratory effort and clear to auscultation bilaterally AUSCULTATION: clear to auscultation bilaterally Cardio: COMMON NORMALS: regular rhythm, S1 normal heart sound present, S2 normal heart sound present and No murmurs present (Cardio) RHYTHM: regular rhythm HEART SOUNDS: S1 normal heart sound present and S2 normal heart sound present GI: COMMON NORMALS: Normal to inspection, nondistended, normoactive bowel sounds present, Soft to palpation and non-tender PALPATION: Yes Soft to palpation Extremity: COMMON NORMALS: no joint enlargement and no pedal edema Data 04/10/23 04:04 04/10/23 04:04 A&P Assessment and plan (1) Hypertensive urgency: Doing well on nitro drip. The lisinopril was increased to 20 mg We will start beta-blockade. Plan to wean the drip off overnight. (2) Dyspnea: Patient has COPD however not in exacerbation. Probably secondary to accelerated hypertension and hypertension urgency breathing is better today (3) Elevated brain natriuretic peptide (BNP) level: Echocardiogram done 1. Normal left ventricular size, systolic function and wall ?thickness, with no regional wall motion abnormalities. Left ?ventricular ejection fraction is estimated at 70 %. Grade II ?diastolic dysfunction, moderately elevated filling pressures. ?2. Normal right ventricular size and systolic function. ?3. No prior similar studies to compare. (4) Cardiomegaly: (5) Leukocytosis: Resolved Plan Laryngeal lesion: Follow-up with ENT for biopsy. YUNI: Resume CPAP. Untreated YUNI may be contributing to uncontrolled hypertension. Hepatic steatosis: Follow-up with PCP. Low-cholesterol diet. Perinephric edema: Incidentally noted on CT, suspect secondary to CKD, correlate for pyelonephritis, but has not had any urinary symptoms. UA not suggestive of UTI. Does have leukocytosis 14.2, afebrile. Monitor for any change in symptoms. Reassess CBC. On questionnaire by nursing reports Hx of tuberculosis 30 years ago. Will inquire whether completed treatment. Reported got treatmetn with INH in 1994- in [facility]. Reports history of positive skin tests. No other symptoms to indicate active infection. Will need follow-up. Attestations Medical Necessity Statement*: Requires intensive care level of stay in another midnight for hypertensive urgency Coding Level of Care Code Acute Code for Chg Fwd Diagnoses Hypertensive urgency I16.0 Dyspnea R06.00 Elevated brain natriuretic peptide (BNP) level R79.89 Cardiomegaly I51.7 Leukocytosis D72.829
[2023-04-09] MEDS: metoprolol succinate ER (24 HR) 25 mg Tablet 12.5 MG PO ×2 (14:15→17:36)
[2023-04-09] MEDS: atorvastatin 40 mg Tablet PO (17:36)
--- NOTE | 2023-04-09 17:58 | PC.NURSE ---
Pregabalin and Celebrex Patient refuses medications due to Alpha Gal allergy. Called pharmacy to clarify and they state medication can be removed from capsule and given with apple sauce. Patient still refuses to take pills. Dr. Sal notified.
--- NOTE | 2023-04-09 18:05 | PC.NURSE ---
SPO2 Patient removing oxygen off and on and has SPO2 levels in the high 80s to low 90s without oxygen on.
[2023-04-09] MEDS: pantoprazole DR 40 mg Tablet 20 MG PO (20:37)
[2023-04-09] MEDS: lidocaine 5% Patch 1 PATCH TOPICAL (20:38)
[2023-04-10] VITALS (23 sets, daily range): BP systolic 100–177; BP diastolic 63–128; PULSE 71–92; RESP 12–23; O2SAT 90–97
[2023-04-10] MEDS: ipratropium-albuterol 3 mL Neb INHALATION ×3 (01:55→13:46)
[2023-04-10 04:38] LABS: Basophils # 0.1 10^3/uL (0.0-0.1); Basophils % 0.6 %; Eosinophils # 0.1 10^3/uL (0.0-0.8); Eosinophils % 0.5 %; Lymphocytes # 1.6 10^3/uL (0.8-4.8); Lymphocytes % 12.4 %; Mean Corpuscular HGB Conc 30.3 g/dL (30-55); Mean Corpuscular Hemoglobin 27.7 pg (27-33); Mean Corpuscular Volume 91.5 fl (85-98); Mean Platelet Volume 9.6 fL (7.4-10.4); Monocytes # 1.2 10^3/uL (0.2-0.9); Monocytes % 9.4 %; Neutrophils # 10.05 10^3/uL (1.8-7.7); Neutrophils % 76.7 %; Nucleated Red Blood Cells % 0 %; Platelet Count 504 10^3/cmm (157-399); Red Blood Count 4.26 10^6/uL (3.85-5.65); Red Cell Distribution Width 14.8 % (12.1-15.1); White Blood Count 13.09 10^3/uL (3.29-11.43)
[2023-04-10 04:59] LABS: Alanine Aminotransferase 8 U/L (0-33); Albumin Level 3.8 g/dL (3.5-5.2); Alkaline Phosphatase 105 U/L (35-105); Anion Gap 13.8 (5-19); Aspartate Amino Transferase 9 U/L (0-32); Blood Urea Nitrogen 18 mg/dL (8-23); Calcium 9.4 mg/dL (8.5-10.5); Carbon Dioxide 29 mmol/L (22-29); Chloride 101 mmol/L (98-107); Globulin 2.8 g/dL (1.3-4.6); Glomerular Filtration Rate 50.5 mL/min (90-130); Glucose 122 mg/dL (65-115); Osmolality Calculated 293 mOsm/kg (285-295); Potassium 3.8 mmol/L (3.5-5.1); Sodium 140 mmol/L (136-145); Total Bilirubin 0.6 mg/dL (0.15-1.2); Total Protein 6.6 g/dL (6.6-8.7)
[2023-04-10] MEDS: lisinopril 10 mg Tablet 20 MG PO (06:07)
--- NOTE | 2023-04-10 06:13 | PC.NURSE ---
Patient refused the Lyrica capsule because of her Alpha gal. This nurse asked if he could open it and put it in apple sauce but she states that she has tried that with different capsules but it triggers her Alpha gal.
[2023-04-10] MEDS: budesonide 0.5 mg/2 mL Neb 0.25 MG INHALATION (07:29)
[2023-04-10] MEDS: metoprolol succinate ER (24 HR) 25 mg Tablet PO (09:01)
[2023-04-10] MEDS: ARIPiprazole 10 mg Tablet 5 MG PO (09:01)
[2023-04-10] MEDS: dicyclomine 10 mg Capsule PO (09:02)
[2023-04-10] MEDS: lidocaine 5% Patch 1 PATCH TOPICAL (09:02)
--- NOTE | 2023-04-10 11:07 | PM.DCS ---
Discharge Providers Date of Admission: 04/08/23 21:00 Date of Discharge: April 10, 2023 Attending Provider at Admission: Ankit Bermudez Attending Provider at Discharge: Larry Avalos DO Primary Care Provider: Kleber Johnson MD Diagnoses at Discharge Discharge Diagnosis (1) Hypertensive urgency: Status: Acute (2) Dyspnea: Status: Acute (3) Elevated brain natriuretic peptide (BNP) level: Status: Acute (4) Cardiomegaly: Status: Acute (5) Laryngeal stenosis: Status: Acute (6) Atelectasis: Status: Acute (7) Leukocytosis: Status: Resolved Reason for Visit Reason for Visit: sob Brief History: Pleasant 62-year-old lady with history of Alpha-Gal syndrome, COPD, YUNI, has not used her CPAP in the last several nights, HTN, HLD, PAD, neuropathy, alpha glucosidase deficiency, seasonal allergies, chronic back pain, anxiety, other medical problems.? Found to have uncontrolled hypertension despite multiple including intravenous medications administered in the ER where she initially presented due to dyspnea.? Noted with mild leukocytosis 14.2, but afebrile, without cough, sputum production, chest x-ray with platelike atelectasis left lower lobe, unremarkable procalcitonin.? Noted CT neck in February with some reported narrowing of the epiglottis, but possibly artifactual related to timing of the imaging study.? Denied sensation of airway obstruction, dysphagia, or choking or aspiration.? Per discussion with PA scheduled for assessment with biopsy of laryngeal lesion on Wednesday, discussed to confirm availability of ENT.? Per discussion with ER physician, ENT unavailable, but regarding laryngeal narrowing that was reported is likely artifactual, ER physician reviewed her recent preceding laryngoscopy reporting no findings of laryngeal narrowing, reporting a finding of nonobstructive lesion thus she was deemed safe for admission here. COVID PCR panel in ER is negative.? Noted new abnormality with NT-proBNP elevated at 1174.? Troponin is minimally elevated without rise. ? Contrast CT chest obtained in ER without PE, but basilar atelectasis versus infiltrate, emphysematous changes.? Cardiomegaly. Coronary artery calcification.? Hepatic steatosis.? Likely kidney cyst, negative for follow-up.? Mild perinephric edema bilaterally likely reflecting renal insufficiency.? Correlate for pyelonephritis.? Diverticulosis. Hospital Course Hospital Course Patient was placed on nitro drip with good control of her blood pressure. Echocardiogram was obtained and found: 1. Normal left ventricular size, systolic function and wall ?thickness, with no regional wall motion abnormalities. Left ?ventricular ejection fraction is estimated at 70 %. Grade II ?diastolic dysfunction, moderately elevated filling pressures. ?2. Normal right ventricular size and systolic function. ?3. No prior similar studies to compare. The following day she was placed on low-dose metoprolol with good results. She was able to tolerate a slightly increased dose. At that time the nitro drip was weaned off. I attempted adjuncive therapy for her back pain however she felt she was probably allergic secondary to alpha alpha gal to Celebrex Lyrica and Cymbalta. Interesting to note patient is on multiple medications with an alpha gal allergy flag. Today on 04/10/2023 patient's heart rate and blood pressure are within normal parameters. She is discharged in stable and improved condition Physical Exam Const: GENERAL APPEARANCE: cooperative NUTRITIONAL APPEARANCE: obese ORIENTATION/CONSCIOUSNESS: Yes awake Resp: COMMON NORMALS: normal respiratory effort and clear to auscultation bilaterally AUSCULTATION: clear to auscultation bilaterally Cardio: COMMON NORMALS: regular rhythm, S1 normal heart sound present, S2 normal heart sound present and No murmurs present (Cardio) RHYTHM: regular rhythm HEART SOUNDS: S1 normal heart sound present and S2 normal heart sound present GI: COMMON NORMALS: Normal to inspection, nondistended, normoactive bowel sounds present, Soft to palpation and non-tender PALPATION: Yes Soft to palpation Extremity: COMMON NORMALS: no joint enlargement and no pedal edema Discharge Data Studies Completed and Pending Completed Studies During Hospitalization Category Date Time Status CT chest w con* [id number] Stat Cat Scan 04/08/23 19:45 Completed XR chest 1V portable [id number] Stat Exams 04/08/23 15:00 Completed CV. echo complete* [id number] Routine Ultrasound 04/08/23 22:02 Completed Pending at discharge Category Date Time Status Complete Blood Count w/Auto AM LABS Lab 04/11/23 04:00 Ordered Comprehensive Metabolic Panel AM LABS Lab 04/11/23 04:00 Ordered Radiology Impressions Chest CT 04/08/23 19:45 IMPRESSION: 1. Negative for pulmonary embolus. 2. Bibasilar atelectasis versus infiltrate. 3. Emphysematous changes. 4. Cardiomegaly. 5. Coronary artery atherosclerotic calcifications. 6. Hepatic steatosis. 7. Left kidney cyst, negative for follow up. 8. Mild perinephric edema bilaterally likely reflecting renal insufficiency, please correlate for pyelonephritis. 9. Diverticulosis somewhat visualized. COMMENTS: In the absence of a history or active diagnosis of lung cancer, it is recommended that this patient with emphysema be evaluated for enrollment in a low dose CT lung cancer screening program. Laboratory Results WBC 13.09 10^3/uL (3.29-11.43) H 04/10/23 04:04 RBC 4.26 10^6/uL (3.85-5.65) 04/10/23 04:04 Hgb 11.80 g/dL (11.27-16.99) 04/10/23 04:04 Hct 39.0 % (36-47) 04/10/23 04:04 MCV 91.5 fl (85-98) 04/10/23 04:04 MCH 27.7 pg (27-33) 04/10/23 04:04 MCHC 30.3 g/dL (30-55) 04/10/23 04:04 RDW 14.8 % (12.1-15.1) 04/10/23 04:04 Plt Count 504 10^3/cmm (157-399) H 04/10/23 04:04 MPV 9.6 fL (7.4-10.4) 04/10/23 04:04 Neut % (Auto) 76.7 % 04/10/23 04:04 Lymph % (Auto) 12.4 % 04/10/23 04:04 [place] % (Auto) 9.4 % 04/10/23 04:04 Eos % (Auto) 0.5 % 04/10/23 04:04 Baso % (Auto) 0.6 % 04/10/23 04:04 Neut # (Auto) 10.05 10^3/uL (1.8-7.7) H 04/10/23 04:04 Lymph # (Auto) 1.6 10^3/uL (0.8-4.8) 04/10/23 04:04 [place] # (Auto) 1.2 10^3/uL (0.2-0.9) H 04/10/23 04:04 Eos # (Auto) 0.1 10^3/uL (0.0-0.8) 04/10/23 04:04 Baso # (Auto) 0.1 10^3/uL (0.0-0.1) 04/10/23 04:04 Nucleated RBC % (auto) 0 % 04/10/23 04:04 Nucleated RBCs # 0.0 /100WBC 04/10/23 04:04 Sodium 140 mmol/L (136-145) 04/10/23 04:04 Potassium 3.8 mmol/L (3.5-5.1) 04/10/23 04:04 Chloride 101 mmol/L (98-107) 04/10/23 04:04 Carbon Dioxide 29 mmol/L (22-29) 04/10/23 04:04 Anion Gap 13.8 (5-19) 04/10/23 04:04 BUN 18 mg/dL (8-23) 04/10/23 04:04 Creatinine 1.1 mg/dL (0.5-0.9) H 04/10/23 04:04 GFR Calculation 50.5 mL/min (90-130) L 04/10/23 04:04 Glucose 122 mg/dL (65-115) H 04/10/23 04:04 Calculated Osmolality 293 mOsm/kg (285-295) 04/10/23 04:04 Calcium 9.4 mg/dL (8.5-10.5) 04/10/23 04:04 Total Bilirubin 0.6 mg/dL (0.15-1.2) 04/10/23 04:04 AST 9 U/L (0-32) 04/10/23 04:04 ALT 8 U/L (0-33) 04/10/23 04:04 Alkaline Phosphatase 105 U/L (35-105) 04/10/23 04:04 Troponin T Baseline 14 ng/L (0-10) H 04/08/23 18:26 Troponin T 120 Minute 15.10 ng/L (0-10) H 04/08/23 20:29 Delta Troponin T 1.10 ABS# (0-10) 04/08/23 20:29 Troponin T Hi Sens 6Hr 14.06 ng/L (0-10) H 04/09/23 00:28 Troponin T Hi Sens 6Hr Delta 0.06 ng/L (0-12) 04/09/23 00:28 NT-Pro-B Natriuret Pep 1174 pg/mL (0-125) H 04/08/23 18:26 Total Protein 6.6 g/dL (6.6-8.7) 04/10/23 04:04 Albumin 3.8 g/dL (3.5-5.2) 04/10/23 04:04 Globulin 2.8 g/dL (1.3-4.6) 04/10/23 04:04 Procalcitonin 0.03 ng/mL (0-0.5) 04/08/23 15:18 Urine Color Yellow (Yellow) 04/08/23 17:24 Urine Appearance Sl hazy (CLEAR) A 04/08/23 17:24 Urine pH 9 (5-7) H 04/08/23 17:24 Ur Specific [place] 1.015 (1.005-1.030) 04/08/23 17:24 Urine Protein Neg (Negative) 04/08/23 17:24 Urine Glucose (UA) Norm (Normal) 04/08/23 17:24 Urine Ketones 2+ (Negative) H 04/08/23 17:24 Urine Blood Neg (Negative) 04/08/23 17:24 Urine Nitrate Negative (Negative) 04/08/23 17:24 Urine Bilirubin Neg (Negative) 04/08/23 17:24 Prot Sulfosalicylic Acd Negative (Negative) 04/08/23 17:24 Urine Urobilinogen 4 mg/dL (Negative) H 04/08/23 17:24 Ur Leukocyte Esterase Negative (Negative) 04/08/23 17:24 Urine RBC 0-4 /hpf (0-2) H 04/08/23 17:24 Urine WBC 0-4 /hpf (0-5) H 04/08/23 17:24 Ur Squamous Epith Cells 5-10 /hpf (0-5) H 04/08/23 17:24 Amorphous Sediment Not Reportable 04/08/23 17:24 Urine Bacteria Trace /hpf (NONE) 04/08/23 17:24 Coronavirus 229E (PCR) Not detected (NOT DETECT) 04/08/23 15:31 SARS-CoV-2 (PCR) Not detected (NOT DETECT) 04/08/23 15:31 Vitals Last Vital Signs Temp 98.0 F 04/09/23 20:30 Pulse 86 04/10/23 09:00 Resp 13 04/10/23 09:00 BP 122/73 04/10/23 09:00 Pulse Ox 96 04/10/23 09:00 O2 Del Method Nasal Cannula 04/10/23 09:00 O2 Flow Rate 2 04/10/23 09:00 Discharge Plan Discharge Patient Disposition: Home Condition: Stable Prescriptions: New lidocaine 5 % Adhesive Patch,Medicated 1 patch topical [id number] Qty: 30 0RF budesonide 0.5 mg/2 mL Suspension For Nebulization 0.25 mg inhalation BID.RESPIRATORY Qty: 30 0RF metoprolol succinate 25 mg Tablet Extended Release 24 Hr 25 mg PO DAILY Qty: 30 0RF lisinopril 10 mg Tablet 20 mg PO QAM Qty: 30 0RF budesonide 0.5 mg/2 mL Suspension For Nebulization 0.25 mg inhalation BID.RESPIRATORY Qty: 30 0RF lisinopril 10 mg Tablet 20 mg PO QAM Qty: 30 0RF metoprolol succinate 25 mg Tablet Extended Release 24 Hr 25 mg PO DAILY Qty: 30 0RF lidocaine 5 % Adhesive Patch,Medicated 1 patch topical [id number] Qty: 30 0RF Continued alprazolam 1 mg tablet 1 mg PO TID PRN (Reason: Anxiety) pravastatin 20 mg tablet 20 mg PO QPM albuterol sulfate 2.5 mg /3 mL (0.083 %) solution for nebulization 2.5 mg inhalation Q4H PRN (Reason: Shortness Of Breath) dicyclomine 10 mg capsule 10 mg PO BID aripiprazole [Abilify] 5 mg tablet 5 mg PO DAILY Qty: 30 1RF fluticasone propionate 50 mcg/actuation spray,suspension 2 spray intranasal DAILY PRN (Reason: Allergy Symptoms) Qty: 16 3RF Rx Instructions: administer into each nostril ibuprofen 600 mg tablet 600 mg PO TID PRN (Reason: pain) Qty: 120 0RF Spiriva Respimat 2.5 mcg/actuation mist 1 puff inhalation DAILY Qty: 4 3RF (DME) CPAP mask, tubing, supplies See Rx Instructions .ROUTE .MEDSUPPLY Qty: 1 1RF Rx Instructions: As directed budesonide-formoterol [Symbicort] 160-4.5 mcg/actuation HFA aerosol inhaler 3 puff inhalation BID Qty: 10.2 3RF chlorzoxazone 500 mg tablet 1,000 mg PO BID 30 Days Qty: 120 2RF eszopiclone 3 mg tablet 3 mg PO BEDTIME epinephrine 0.3 mg/0.3 mL Auto-Injector 0.3 mg IM Q4H PRN (Reason: Anaphylaxis) gabapentin 600 mg Tablet 1,800 mg PO BID pantoprazole [Protonix] 40 mg Tablet,Delayed Release (Dr/Ec) 20 mg PO BEDTIME Discontinued lisinopril 10 mg tablet 10 mg PO QAM Qty: 90 1RF naproxen 500 mg tablet See Rx Instructions .ROUTE .COMPLEX Qty: 60 0RF Dose Instruction: TAKE 1 TABLET BY MOUTH TWICE DAILY NEEDED FOR PAIN Rx Instructions: TAKE 1 TABLET BY MOUTH TWICE DAILY NEEDED FOR PAIN Discharge Orders: Discharge Order (Routine); Ordered 04/10/23 Ordered By: Larry Avalos Referrals: Kleber Johnson MD [Primary Care Provider] - Discharge Diet: Low Salt, Low Cholesterol and Low Fat Discharge Activity: Increase activity as tolerated Discharge Attestations Time Spent in Discharge Care*: less than 30 min Quality Metrics Clinical Quality Measures [ No reported AMI, CVA or VTE this stay] Coding Level of Care Code Acute Code for Chg Fwd Diagnoses Hypertensive urgency I16.0 Dyspnea R06.00 Elevated brain natriuretic peptide (BNP) level R79.89 Cardiomegaly I51.7 Laryngeal stenosis J38.6 Atelectasis J98.11 Leukocytosis D72.829
--- NOTE | 2023-04-10 12:25 | PC.NURSE ---
Discharge instructions given to patient, prescriptions sent to pharmacy, IV removed. Patient eating and waiting on for ride.
--- NOTE | 2023-04-10 14:06 | PC.NURSE ---
Patient wheeled to private vehicle by this nurse, at bedside, belongings with patient. Patient AAOx4, no complaints of shortness of breath.
== END 2023-04-10 14:00 | disposition home or self-care (01) | DRG 305 ==
LOC: ER 20:52 → ICU 21:01
PROVIDERS: Family Medicine; Physician Assistant; Admitting Provider Internal Medicine; Emergency Provider Physician Assistant; PCP Family Medicine; Visit Provider Internal Medicine
DX: I16.0 Hypertensive urgency (principal); I50.30 Unspecified diastolic (congestive) heart failure; J44.9 Chronic obstructive pulmonary disease, unspecified; G47.33 Obstructive sleep apnea (adult) (pediatric); I11.0 Hypertensive heart disease with heart failure; E78.5 Hyperlipidemia, unspecified; I73.9 Peripheral vascular disease, unspecified; G62.9 Polyneuropathy, unspecified; G89.29 Other chronic pain; F41.9 Anxiety disorder, unspecified; J38.6 Stenosis of larynx; Z11.52 Encounter for screening for COVID-19; I25.10 Atherosclerotic heart disease of native coronary artery without angina pectoris; K76.0 Fatty (change of) liver, not elsewhere classified; K57.90 Diverticulosis of intestine, part unspecified, without perforation or abscess without bleeding; M54.30 Sciatica, unspecified side; Z87.891 Personal history of nicotine dependence; F31.9 Bipolar disorder, unspecified
CPT/HCPCS: 36415; 71045; 71260; 80053; 81001; 83880; 84145; 84484; 85025; 87635; 93005; 93306; 94640; 94660; 96365; 96375; 96376; 99291; J0360; J2405; J3490; J7626; Q9967

== ENCOUNTER 2023-04-20 05:38 | Day surgery (SDC) | payer MEDICARE, MEDICAID, SELFPAY ==
[2023-04-20] VITALS (11 sets, daily range): BP systolic 112–179; BP diastolic 54–103; PULSE 75–89; RESP 13–19; TEMP 36.1–36.7; O2SAT 91–97; BMI 42.3
--- NOTE | 2023-04-20 06:48 | W.PM.OPSUD ---
Surgery/Procedure H&P Update DATE OF PROCEDURE: April 20, 2023 DATE H&P PERFORMED: 04/14/23 H&P UPDATE INFORMATION: I have reviewed H&P completed within last 30 days, I have examined patient prior to procedure and No changes to prior documentation PREOP DIAGNOSIS: Hoarseness, True vocal cord lesion PLANNED PROCEDURE: Operation Date: 04/20/23 07:00 Proposed Procedures p Direct/Mirco Laryngoscopy Direct Larynoscopy with biopsy/biopsies 20132,D38.0(Not Applicable) - Arie Welch MD
[2023-04-20] MEDS: sodium chloride 0.9% 1,000 ML 30 ML IV (06:51)
[2023-04-20] MEDS: ipratropium-albuterol 3 mL Neb INHALATION (07:04)
[2023-04-20] MEDS: fluorescein 1 mg Strip XX (07:36)
[2023-04-20] MEDS: EPINEPHrine 1 mg/mL INJ XX (07:36)
--- NOTE | 2023-04-20 07:59 | PM.OP ---
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 Procedure: The patient was identified in the preoperative holding area and was taken to the operating room where she was placed on the operating table in the supine position. Anesthesia was obtained with general endotracheal anesthesia and the table was then turned 90 degrees to the patient's left. The patient was then prepped and draped in the usual sterile fashion and a surgical laryngoscope was advanced down the right oral cavity gutter under direct vision until the larynx came into view. A systematic inspection was then carried out with patient with findings noted above. At this point the 0 degree Zabala ledy surgical telescope was advanced down the laryngoscope and the area of concern was documented photographically. At this point biopsies were taken with with a small cup forceps and hemostasis was achieved with direct application of 06/999 epinephrine on a neuropledget. Once hemostasis has been achieved the patient was taken off suspension and the laryngoscope was atraumatically released and removed. The procedure was then terminated and control of the patient was returned to anesthesia where she underwent an uneventful reversal of anesthesia and extubation. The patient was taken to the recovery room in stable condition. There were no operative or anesthetic complications.
--- NOTE | 2023-04-20 08:40 | P.ANESASSM_ITS ---
Pre-Anesthetic Assessment Height/Weight: Height 1.52 m Weight 98.43 kg Temp Pulse Resp BP Pulse Ox O2 Del Method O2 Flow Rate 97.9 F 82 18 121/84 93 Room Air 6 04/20/23 08:27 04/20/23 08:27 04/20/23 08:27 04/20/23 08:27 04/20/23 08:27 04/20/23 08:27 04/20/23 08:02 Preop Diagnosis: Hoarseness, True vocal cord lesion Operation Date: 04/20/23 07:00 Proposed Procedures p Direct/Mirco Laryngoscopy Direct Larynoscopy with biopsy/biopsies [id number],D38.0(Not Applicable) - Arie Welch MD Familial anesthetic complications: Alpha GAL Was Beta Estuardo taken within 24 hours: Yes Was Clonidine taken within 24 hours: N/A Last intake: Intake Last Liquid Date 04/19/23 Last Liquid Time 18:00 Last Solid Date 04/19/23 Last Solid Time 16:30 Social Tobacco and No alcohol Exam alert, oriented x 3 and regular rate & rhythm Airway Submandibular: within normal limits Cervical ROM: within normal limits Mallampati: Class II Dentition: chipped and loose (#7lateral incisor) Comments: Comments: hoarseness Pulmonary Chronic Obstructive Pulmonary Disease and Sleep Apnea CV/HEM Hypertension GI Gastroesophageal Reflux Disease Metabolic Diabetes Mellitus, Hyperlipidemia and Morbid Obesity Neuropsych Anxiety, Depression and Neuropathy Anesthetic Plan ASA status: 3 Anesthesia: General Medications/Allergies Home Medications Medication Instructions Recorded Confirmed Last Taken Type albuterol sulfate 2.5 mg/3 mL 2.5 mg inhalation Q4H PRN 03/21/21 04/19/23 04/12/23 History (0.083 %) solution for nebulization Shortness Of Breath alprazolam 1 mg tablet 1 mg PO TID PRN Anxiety 03/21/21 04/19/23 04/19/23 History pravastatin 20 mg tablet 20 mg PO QPM 03/21/21 04/19/23 04/19/23 History dicyclomine 10 mg capsule 10 mg PO BID 01/20/22 04/19/23 04/19/23 History epinephrine 0.3 mg/0.3 mL 0.3 mg IM Q4H PRN Anaphylaxis 02/18/22 04/19/23 Unknown History injection, auto-injector gabapentin 600 mg tablet 1,800 mg PO BID 03/03/22 04/19/23 04/19/23 History pantoprazole 40 mg tablet,delayed 20 mg PO BEDTIME 03/03/22 04/19/23 04/19/23 History release (Protonix) tiotropium bromide 2.5 1 puff inhalation DAILY #4 grams 11/23/22 04/19/23 04/19/23 Rx mcg/actuation mist for inhalation (Spiriva Respimat) CPAP mask, tubing, supplies #1 ea 03/02/23 04/15/23 Unknown Rx chlorzoxazone 500 mg tablet 1,000 mg PO BID 30 days #120 tabs 03/31/23 04/19/23 04/19/23 Rx aripiprazole 5 mg tablet (Abilify) 5 mg PO DAILY #30 tabs 04/05/23 04/19/23 04/19/23 Rx fluticasone propionate 50 2 spray intranasal DAILY PRN 04/05/23 04/19/23 04/19/23 Rx mcg/actuation nasal Allergy Symptoms #16 grams spray,suspension ibuprofen 600 mg tablet 600 mg PO TID PRN pain #120 tabs 04/05/23 04/15/23 04/18/23 Rx eszopiclone 3 mg tablet 3 mg PO BEDTIME 04/08/23 04/19/23 04/19/23 History lidocaine 5 % topical patch 1 patch topical [id number] #30 ea 04/10/23 04/19/23 04/17/23 Rx lisinopril 10 mg tablet 20 mg PO QAM #30 tabs 04/10/23 04/19/23 04/19/23 Rx metoprolol succinate 25 mg 25 mg PO DAILY #30 tabs 04/10/23 04/19/23 04/19/23 Rx tablet,extended release 24 hr Allergies Allergy/AdvReac Type Severity Reaction Status Date / Time Kicking [employer] And [employer]ivatives Allergy Intermediate swelling Verified 04/15/23 14:35 montelukast Allergy Intermediate swelling Verified 04/15/23 14:35 metronidazole Allergy Mild rash Verified 04/15/23 14:35 tramadol Allergy Mild Ears Ring Verified 04/15/23 14:35 and sees black spots Alpha-Gal Allergy ALGY-Anaphy Verified 04/15/23 14:35 (Yyrjxejxg-Yyctw-3,3-Gala laxis Milk Containing Products Allergy ALGY-Difficulty Verified 04/15/23 14:35 (Dairy) Swallowing [Milk Containing Products] aripiprazole AdvReac Intermediate ADR-Headach Verified 04/15/23 14:35 e red meat Allergy Severe anaphylaxis Uncoded 04/15/23 14:35 Current Medications Generic Name Dose Route Start Last Admin Trade Name Freq PRN Reason Stop Dose Admin Sodium Chloride 1,000 mls @ 30 mls/hr 04/20/23 06:00 04/20/23 06:51 Sodium Chloride 0.9% IV 04/21/23 05:59 30 mls/hr .Q24H DIONY Administration PFSH Anesthesia Medical History Acute back pain with sciatica Alpha galactosidase deficiency Anxiety Arthritis Bipolar 1 disorder Cardiomegaly Chronic back pain COPD (chronic obstructive pulmonary disease) COPD exacerbation Diabetes Dyspnea Elevated blood pressure reading Elevated brain natriuretic peptide (BNP) level Enlarged liver Essential hypertension High cholesterol Hyperlipidemia Hypertension Laryngeal stenosis Neuropathy YUNI (obstructive sleep apnea) Peptic ulcer Seasonal allergies Shortness of breath Tuberculosis Vertigo Surgical History History of History of left knee replacement History of tonsillectomy Status post left hip replacement Family History Grandfather Cancer Maternal-prostate Grandmother Cancer Maternal-unknown Other Bleeding disorder Dementia Diabetes Hyperlipidemia Hypertension Lung disease Psychiatric illness Denies family history of CAD (coronary artery disease) Clotting disorder Chronic kidney disease (CKD) Anesthesia complication Stroke Social History Smoking and tobacco/nicotine status: former use of tobacco/nicotine Alcohol intake: never Substance/Drug Use: current Substance/Drug use frequency: Special occassions/opportunity only Lives independently: Yes Current occupational status: disabled Special colin needs: No Agree to transfusion: Yes Data Anesthesia Cardiac Studies: Echocardiogram 04/08/23
--- NOTE | 2023-04-20 12:52 | ANE.PACU2 ---
Inpatient post-anesthesia follow up: Airway intact: Yes Vital signs: Temperature 97.9 F Pulse Rate 82 Respiratory Rate 18 Blood Pressure 166/85 Pulse Oximetry 92 Oxygen Delivery Me thod Room Air Oxygen Flow Rate 6 Fraction of Inspir ed Oxygen Hydration adequate: Yes Nausea and vomiting: No Pain level: 2 Mental status: Baseline
== END 2023-04-20 09:06 | disposition home or self-care (01) ==
PROVIDERS: PCP Family Medicine; Visit Provider Specialist
PROC: 0CJS8ZZ Inspection of Larynx, Via Natural or Artificial Opening Endoscopic (ICD-10-PCS; CPT 31536; principal; 2023-04-20 07:00)
DX: J38.2 Nodules of vocal cords (principal); J44.9 Chronic obstructive pulmonary disease, unspecified; G47.30 Sleep apnea, unspecified; I10 Essential (primary) hypertension; E78.5 Hyperlipidemia, unspecified; E66.01 Morbid (severe) obesity due to excess calories; Z68.41 Body mass index [BMI] 40.0-44.9, adult; E11.40 Type 2 diabetes mellitus with diabetic neuropathy, unspecified; G47.33 Obstructive sleep apnea (adult) (pediatric); Z87.891 Personal history of nicotine dependence
CPT/HCPCS: 31536; 88305; 94640; J0171; J0330; J1100; J1200; J2405; J2704; J2710; J3010; J3490; J7030

== ENCOUNTER → 2023-05-12 14:11 | Outpatient (BNVA) | payer MEDICARE, MEDICAID, SELFPAY | PROVIDERS: PCP Family Medicine; Visit Provider Podiatrist Foot & Ankle Surgery | DX: E11.42 Type 2 diabetes mellitus with diabetic polyneuropathy (principal); I73.9 Peripheral vascular disease, unspecified; L60.3 Nail dystrophy; L84 Corns and callosities | CPT/HCPCS: 11055; 11721 ==

== ENCOUNTER → 2023-07-08 09:48 | Outpatient (BNVA) | payer MEDICARE, OTHER, SELFPAY | PROVIDERS: PCP Family Medicine; Visit Provider Specialist | DX: G56.01 Carpal tunnel syndrome, right upper limb (principal); G56.22 Lesion of ulnar nerve, left upper limb; R29.898 Other symptoms and signs involving the musculoskeletal system; M47.12 Other spondylosis with myelopathy, cervical region | CPT/HCPCS: 95911 ==

== ENCOUNTER → 2023-07-29 14:24 | Outpatient (BNVA) | payer OTHER, MEDICARE, SELFPAY | PROVIDERS: PCP Family Medicine; Referring Provider Family Medicine; Visit Provider Orthopaedic Surgery | DX: G56.00 Carpal tunnel syndrome, unspecified upper limb; M43.17 Spondylolisthesis, lumbosacral region | CPT/HCPCS: 72110 ==

== ENCOUNTER 2023-08-10 06:53 | Outpatient (CLI) | payer MEDICARE, OTHER, SELFPAY ==
--- NOTE | 2023-08-10 07:13 | MR_ITS ---
WS: [id number] MRI LUMBAR SPINE NONCONTRAST TECHNIQUE: Sagittal T1, T2 and STIR imaging. Axial T1 and T2 imaging. CLINICAL INFORMATION: RADICULOPATHY, LUMBAR REGION COMPARISON: None. FINDINGS: Mild lumbar curve. No acute compression. Grade 1 anterolisthesis L5 on S1 with chronic spondylolysis. Grade 1 anterolisthesis measures 9.5 mm. Disc bulging worse at L2-3. Disc space narrowing worse at L 5-S1. L1-L2: Mild annular bulging. Spinal canal and foramen are patent. Mild facet arthropathy. L2-L3: Shallow central protrusion. Mild to moderate central canal stenosis. Mild facet arthropathy. M ild LEFT greater than RIGHT foraminal narrowing. L3-L4: Mild annular bulging with a shallow central protrusion. Small annular fissure. Mild to moderat e central canal stenosis. Mild facet arthropathy. Mild RIGHT greater than LEFT foraminal narrowing. L4-L5: Mild annular bulging. Mild facet arthropathy. The spinal canal and foramen are patent. L5-S1: Grade 1 anterolisthesis with chronic spondylolysis. Mild central canal stenosis. Endplate ridg ing with moderate bilateral foraminal narrowing. Subcutaneous edema in the dorsal subcutaneous soft tissues likely dependent. Visualized pelvic bony structures: Normal. Paravertebral soft tissues: Normal. Slightly aneurysmal abdominal aorta measuring 2.8 cm in AP dimension. IMPRESSION: 1. Mild lumbar curve. No acute compression. Grade 1 anterolisthesis L5 on S1 with chronic spondyloly sis. 2. Mild to moderate central canal stenosis L2-L3 and L3-L4 with shallow central disc protrusions. 3. Mild central canal stenosis L5-S1 with moderate bilateral foraminal narrowing. 4. Slightly aneurysmal abdominal aorta measuring 2.8 cm in AP dimension. This can be followed up wit h ultrasound.
== END 2023-08-10 06:54 | disposition home or self-care (01) ==
LOC: RAD 06:53
PROVIDERS: PCP Family Medicine; Visit Provider Nurse Practitioner Acute Care
DX: M51.17 Intervertebral disc disorders with radiculopathy, lumbosacral region (principal); M46.1 Sacroiliitis, not elsewhere classified; M48.061 Spinal stenosis, lumbar region without neurogenic claudication; M48.07 Spinal stenosis, lumbosacral region
CPT/HCPCS: 72148

== ENCOUNTER → 2023-08-17 14:46 | Outpatient (BNVA) | payer MEDICARE, OTHER, SELFPAY | PROVIDERS: PCP Family Medicine; Referring Provider Family Medicine; Visit Provider Student in an Organized Health Care Education/Training Program | DX: G56.22 Lesion of ulnar nerve, left upper limb (principal); G56.01 Carpal tunnel syndrome, right upper limb; G56.21 Lesion of ulnar nerve, right upper limb | CPT/HCPCS: 73110; 99214 ==

== ENCOUNTER → 2023-08-25 10:52 | Outpatient (BNVA) | payer MEDICARE, OTHER, SELFPAY | PROVIDERS: PCP Family Medicine; Visit Provider Podiatrist Foot & Ankle Surgery | DX: E11.42 Type 2 diabetes mellitus with diabetic polyneuropathy (principal); I73.9 Peripheral vascular disease, unspecified; L60.3 Nail dystrophy; L84 Corns and callosities | CPT/HCPCS: 11055; 11721 ==

== ENCOUNTER → 2023-09-02 15:26 | Outpatient (BNVA) | payer MEDICARE, SELFPAY | PROVIDERS: PCP Family Medicine; Visit Provider Orthopaedic Surgery | DX: M43.17 Spondylolisthesis, lumbosacral region | CPT/HCPCS: 99214 ==

== ENCOUNTER 2023-09-28 11:43 | Outpatient (RCR) | payer MEDICARE, SELFPAY | END 2023-10-12 23:59 | disposition home or self-care (01) | LOC: SPT 11:43 | PROVIDERS: PCP Family Medicine; Visit Provider Specialist | DX: M47.12 Other spondylosis with myelopathy, cervical region (principal) | CPT/HCPCS: 97110; 97162; G0283 ==

== ENCOUNTER 2023-10-06 06:53 | Day surgery (SDC) | payer MEDICARE, SELFPAY ==
[2023-10-06] VITALS (11 sets, daily range): BP systolic 117–170; BP diastolic 67–118; PULSE 79–90; RESP 12–20; TEMP 36.3–36.9; O2SAT 92–98; BMI 38.7
--- NOTE | 2023-10-06 09:46 | W.PM.OPSUD ---
Surgery/Procedure H&P Update DATE OF PROCEDURE: October 06, 2023 DATE H&P PERFORMED: 08/17/23 H&P UPDATE INFORMATION: I have reviewed H&P completed within last 30 days, I have examined patient prior to procedure and No changes to prior documentation PREOP DIAGNOSIS: Right carpal tunnel syndrome, right cubital tunnel syndrome PRIMARY INDICATION FOR PROCEDURE: Right carpal tunnel syndrome, right cubital tunnel syndrome PLANNED PROCEDURE: Operation Date: 10/06/23 11:15 Proposed Procedures p Carpal Tunnel Release(Right) - DO micah To Cubital Tunnel Release(Right) - DO micah To Ulnar Nerve Transposition/possible(Right) - George Khan DO
--- NOTE | 2023-10-06 09:46 | W.PM.OPSFHP ---
Same Day Surgery H&P Indication for Procedure/HPI DATE OF PROCEDURE: October 06, 2023 CHIEF COMPLAINT/INDICATIONFOR SURGICAL PROCEDURE: Right carpal tunnel syndrome, right cubital tunnel syndrome PREOP DIAGNOSIS: Right carpal tunnel syndrome, right cubital tunnel syndrome PLANNED PROCEDURE: Operation Date: 10/06/23 11:15 Proposed Procedures p Carpal Tunnel Release(Right) - George Khan DO s Cubital Tunnel Release(Right) - George Khan DO s Ulnar Nerve Transposition/possible(Right) - George Khan DO Medications/Allergies* Home Medications Medication Instructions Recorded Confirmed Type albuterol sulfate 2.5 mg/3 mL 2.5 mg inhalation Q4H PRN 03/21/21 10/05/23 History (0.083 %) solution for nebulization Shortness Of Breath pravastatin 20 mg tablet 20 mg PO QPM 03/21/21 10/05/23 History dicyclomine 10 mg capsule 10 mg PO BID 01/20/22 10/05/23 History epinephrine 0.3 mg/0.3 mL 0.3 mg IM Q4H PRN Anaphylaxis 02/18/22 10/05/23 History injection, auto-injector gabapentin 600 mg tablet 1,800 mg PO BID 03/03/22 10/05/23 History Allergies/Adverse Reactions Allergy/AdvReac Type Severity Reaction Status Date / Time [place] And Derivatives Allergy Intermediate swelling Verified 09/02/23 16:05 montelukast Allergy Intermediate swelling Verified 09/02/23 16:05 metronidazole Allergy Mild rash Verified 09/02/23 16:05 tramadol Allergy Mild Ears Ring Verified 09/02/23 16:05 and sees black spots Alpha-Gal Allergy ALGY-Anaphy Verified 09/02/23 16:05 (Ngsbumvah-Mrwnu-1,3-Gala laxis Milk Containing Products Allergy ALGY-Difficulty Verified 09/02/23 16:05 (Dairy) Swallowing [Milk Containing Products] aripiprazole AdvReac Intermediate ADR-Headach Verified 09/02/23 16:05 e red meat Allergy Severe anaphylaxis Uncoded 09/02/23 16:05 Pertinent History/Comorbid Conditions* Medical History (Updated 08/23/23 @ 21:48 by George Khan DO) Tuberculosis Laryngeal stenosis Cardiomegaly Elevated brain natriuretic peptide (BNP) level Dyspnea Elevated blood pressure reading Shortness of breath Chronic back pain Alpha galactosidase deficiency YUNI (obstructive sleep apnea) Seasonal allergies Anxiety Hyperlipidemia Essential hypertension COPD (chronic obstructive pulmonary disease) Diabetes Neuropathy Bipolar 1 disorder Enlarged liver Arthritis Vertigo Hypertension High cholesterol Acute back pain with sciatica Peptic ulcer COPD exacerbation Surgical History (Updated 10/16/22 @ 09:09 by Kleber Johnson MD) History of History of tonsillectomy History of left knee replacement Status post left hip replacement Family History (Updated 10/16/22 @ 08:56 by Desi Bustos LPN) Diabetes Dementia Hyperlipidemia Psychiatric illness Bleeding disorder Lung disease Cancer Grandfather Maternal-prostate Grandmother Maternal-unknown Hypertension Denies family history of CAD (coronary artery disease) Clotting disorder Chronic kidney disease (CKD) Anesthesia complication Stroke Social History Smoking and tobacco/nicotine status: former use of tobacco/nicotine Alcohol intake: never Substance/Drug Use: current Substance/Drug use frequency: Special occassions/opportunity only Lives independently: Yes Current occupational status: disabled Special colin needs: No Agree to transfusion: Yes Pertinent Exam Findings alert, oriented x 3, operative site marked and procedure specific exam findings Please refer to last office note on 08/17/2023 for for detailed orthopedic examination: Examination right upper extremity: Negative Spurling's, C-spine range of motion with no pain Negative Tinel's of the shoulder bilaterally Positive Tinel's to the right elbow Positive elbow flexion test right elbow Positive Tinel's over the carpal tunnel, positive median nerve compression test, positive Phalen's test right Thenar weakness noted as well as intrinsic weakness noted, no significant thenar or intrinsic atrophy appreciated Recommendations Surgery/Procedure today Other Plans: Plan to proceed to the OR today for right carpal tunnel release and right cubital tunnel release with possible ulnar nerve transposition Patient understands the ins and outs procedure risk benefits complication alternatives of surgery and through shared decision may elect proceed with surgical intervention. All questions answered at this time. Coding Level of Care Code Acute Code for Mark[place]er Fwjulio c
[2023-10-06 10:06] LABS: Glucose Point of Care 113 mg/dL (70-110)
[2023-10-06] MEDS: acetaminophen 1,000 MG/100 ML PIGGYBACK 400 MG IV (10:22)
[2023-10-06] MEDS: sodium chloride 0.9% 1,000 ML 30 ML IV (10:23)
[2023-10-06] MEDS: ketorolac 30 mg/mL INJ IVP (10:27)
--- NOTE | 2023-10-06 10:50 | P.ANESASSM_ITS ---
Pre-Anesthetic Assessment Height/Weight: Height 1.52 m Weight 89.811 kg Temp Pulse Resp BP Pulse Ox O2 Del Method 98.4 F 80 17 168/118 95 Room Air 10/06/23 09:37 10/06/23 09:37 10/06/23 09:37 10/06/23 09:37 10/06/23 09:37 10/06/23 09:41 Preop Diagnosis: Right carpal tunnel syndrome, right cubital tunnel syndrome Operation Date: 10/06/23 11:15 Proposed Procedures p Carpal Tunnel Release(Right) - George [place], DO s Cubital Tunnel Release(Right) - George [place], DO s Ulnar Nerve Transposition/possible(Right) - George [place], DO Familial anesthetic complications: none Was Beta Estuardo taken within 24 hours: N/A Was Clonidine taken within 24 hours: N/A Last intake: Intake Last Liquid Date 10/05/23 Last Liquid Time 20:00 Last Solid Date 10/05/23 Last Solid Time 20:00 Social Tobacco and No alcohol Exam alert, oriented x 3, clear to auscultation bilaterally and regular rate & rhythm Airway Mallampati: Class IV Dentition: chipped Pulmonary Chronic Obstructive Pulmonary Disease and Sleep Apnea CV/HEM Hypertension Metabolic Diabetes Mellitus and Morbid Obesity Anesthetic Plan ASA status: 3 Anesthesia: General Risk of > 500 ml blood loss (7ml/kg in children): No Medications/Allergies Home Medications Medication Instructions Recorded Confirmed Last Taken Type albuterol sulfate 2.5 mg/3 mL 2.5 mg inhalation Q4H PRN 03/21/21 10/05/23 04/12/23 History (0.083 %) solution for nebulization Shortness Of Breath pravastatin 20 mg tablet 20 mg PO QPM 03/21/21 10/05/23 10/05/23 History dicyclomine 10 mg capsule 10 mg PO BID 01/20/22 10/05/23 10/05/23 History epinephrine 0.3 mg/0.3 mL 0.3 mg IM Q4H PRN Anaphylaxis 02/18/22 10/05/23 Unknown History injection, auto-injector gabapentin 600 mg tablet 1,800 mg PO BID 03/03/22 10/05/23 10/05/23 History tiotropium bromide 2.5 1 puff inhalation DAILY #4 grams 06/06/0510/05/23 04/19/23 Rx mcg/actuation mist for inhalation (Spiriva Respimat) CPAP mask, tubing, supplies #1 ea 03/02/23 09/02/23 Unknown Rx fluticasone propionate 50 2 spray intranasal DAILY PRN 04/05/23 10/05/23 10/05/23 Rx mcg/actuation nasal Allergy Symptoms #16 grams spray,suspension lidocaine 5 % topical patch 1 patch topical [id number] #30 ea 04/10/23 10/05/23 04/17/23 Rx alprazolam 1 mg tablet 1 mg PO TID PRN Anxiety #90 tabs 04/30/23 10/06/23 10/05/23 Rx budesonide-formoterol HFA 160 2 puff inhalation BID #10.2 grams 06/09/23 10/06/23 10/05/23 Rx mcg-4.5 mcg/actuation aerosol inhaler (Symbicort) meclizine 25 mg tablet 25 mg PO DAILY PRN motion sickness 06/16/23 10/05/23 Unknown Rx #30 tabs metoprolol succinate 25 mg 25 mg PO DAILY #90 tabs 06/17/23 10/05/23 10/05/23 Rx tablet,extended release 24 hr pantoprazole 20 mg tablet,delayed 20 mg PO DAILY #90 tabs 06/17/23 10/05/23 10/05/23 Rx release duloxetine 30 mg capsule,delayed 30 mg PO DAILY #30 caps 07/12/23 10/05/23 10/05/23 Rx release lisinopril 20 mg tablet See Rx Instructions .Route 07/20/23 10/05/23 10/05/23 Rx .COMPLEX #30 tabs ibuprofen 600 mg tablet 600 mg PO TID PRN pain #120 tabs 08/02/23 10/05/23 Unknown Rx chlorzoxazone 500 mg tablet See Rx Instructions .Route 08/04/23 10/05/23 10/05/23 Rx .COMPLEX #120 tabs aripiprazole 5 mg tablet See Rx Instructions .Route 08/30/23 10/05/23 Unknown Rx .COMPLEX #30 tabs eszopiclone 3 mg tablet 3 mg PO .qnightly PRN insomnia #30 04/06/24 04/23/24 04/23/24 Rx tabs hydrocodone 7.5 mg-acetaminophen 1 tab PO Q6H PRN pain 5 days #20 10/06/23 Unknown Rx 325 mg tablet tabs ondansetron 4 mg disintegrating 4 mg PO Q8H PRN nausea and 10/06/23 Unknown Rx tablet vomiting 3 days #9 tabs Allergies Allergy/AdvReac Type Severity Reaction Status Date / Time [place] And Derivatives Allergy Intermediate swelling Verified 09/02/23 16:05 montelukast Allergy Intermediate swelling Verified 09/02/23 16:05 metronidazole Allergy Mild rash Verified 09/02/23 16:05 tramadol Allergy Mild Ears Ring Verified 09/02/23 16:05 and sees black spots Alpha-Gal Allergy ALGY-Anaphy Verified 09/02/23 16:05 (Fvggpcxcm-Ujysb-9,3-Gala laxis Milk Containing Products Allergy ALGY-Difficulty Verified 09/02/23 16:05 (Dairy) Swallowing [Milk Containing Products] aripiprazole AdvReac Intermediate ADR-Headach Verified 09/02/23 16:05 e red meat Allergy Severe anaphylaxis Uncoded 09/02/23 16:05 Current Medications Generic Name Dose Route Start Last Admin Trade Name Freq PRN Reason Stop Dose Admin Sodium Chloride 1,000 mls @ 30 mls/hr 10/06/23 09:15 10/06/23 10:23 Sodium Chloride 0.9% IV 10/07/23 09:14 30 mls/hr .Q24H DIONY Administration PFSH Anesthesia Medical History Tuberculosis Laryngeal stenosis Cardiomegaly Elevated brain natriuretic peptide (BNP) level Dyspnea Elevated blood pressure reading Shortness of breath Chronic back pain Alpha galactosidase deficiency YUNI (obstructive sleep apnea) Seasonal allergies Anxiety Hyperlipidemia Essential hypertension COPD (chronic obstructive pulmonary disease) Diabetes Neuropathy Bipolar 1 disorder Enlarged liver Arthritis Vertigo Hypertension High cholesterol Acute back pain with sciatica Peptic ulcer COPD exacerbation Surgical History History of History of tonsillectomy History of left knee replacement Status post left hip replacement Family History Grandfather Cancer Maternal-prostate Grandmother Cancer Maternal-unknown Other Bleeding disorder Dementia Diabetes Hyperlipidemia Hypertension Lung disease Psychiatric illness Denies family history of CAD (coronary artery disease) Clotting disorder Chronic kidney disease (CKD) Anesthesia complication Stroke Social History Smoking and tobacco/nicotine status: former use of tobacco/nicotine Alcohol intake: never Substance/Drug Use: current Substance/Drug use frequency: Special occassions/opportunity only Lives independently: Yes Current occupational status: disabled Special colin needs: No Agree to transfusion: Yes Data Anesthesia Cardiac Studies: Echocardiogram 04/08/23
[2023-10-06] MEDS: ceFAZolin 2,000 MG in sodium chloride 0.9% (plus) 50 ML 100 MG IV (12:03)
[2023-10-06] MEDS: ROPivacaine 0.5% SDV 30 mL 50 MG INJECTION (12:42)
[2023-10-06] MEDS: lidocaine-epi 1% 20 mL INJ 10 ML INJECTION (12:42)
--- NOTE | 2023-10-06 13:20 | P.OP_ITS ---
Operative Report Date of procedure: October 06, 2023 Surgeon: George Khan DO Director Information: Eric Khan PA-C: PA was necessary for assistance in this case with hand positioning to execute the procedure, retraction and protection of neurovascular structures as well as to assist with wound closure and dressing application. Procedure: Preoperative diagnosis: Right carpal tunnel syndrome Right cubital tunnel syndrome postop Diagnosis: Same Procedure done: Right carpal tunnel release Right?cubital tunnel tunnel release (ulnar nerve decompression at elbow) Surgeon: George Khan DO Estimated blood loss: 5 mL Tourniquet? 18 minutes IV fluids: 800 mL Complications: None Findings: See operative report narrative Condition: stable Disposition: same day Brief History: Patient's been seen and worked up in the outpatient setting and findings consistent with preoperative diagnosis.? Patient has right carpal tunnel syndrome as well as right?cubital tunnel syndrome which has been worked up in the outpatient setting has physical exam findings consistent with this as well as confirmatory nerve conduction/EMG nerve conduction study consistent with diagnosis of Carpal tunnel.? Patient's failed conservative treatment.? As result through shared decision making agreed to proceed with? right carpal tunnel and right?cubital tunnel release with possible ulnar nerve transposition we talked about treatment options as far as nonoperative and operative intervention.? Understands risk benefits complication alternatives surgical nonsurgical treatment options.? Understanding risks patient agrees to proceed with surgical intervention. Understanding these risks agrees to proceed with surgery.? Consent obtained in office. Procedure: Patient seen evaluate in the preoperative holding area.? Consent was reviewed and signed with patient.? Correct extremity marked.? Patient seen evaluated by anesthesia department once cleared for surgery was then taken back to the operative suite placed in supine position all bony prominences well-padded patient properly secured to bed.? right upper extremity placed onto armboard.? Nonsterile tourniquet applied right upper arm.? Patient then underwent anesthesia per the anesthesia department.? Patient's right upper extremity was then prepped and draped in standard orthopedic fashion.? Final timeout perfor med.? Patient received appropriate preoperative antibiotics. Esmarch was used exsanguinate the right upper extremity.? Tourniquet was insufflated to 250 mmHg. I started with the carpal tunnel release first.? I made a standard open carpal tunnel release starting with the distal most extent in the palm at the Evans's cardinal line and the incision line was made in line with the fourth ray and e nded just distal to the wrist crease.? Sharp scalpel incision was made through skin and subcutaneous tissue I then utilizing self retainer then began to dissect with dissection scissors split longitudinally the palmar fascia.? Next I then utilizing my preschool teacher's assistant Hussein retractors subsequently utilizing scalpel feathered through the palmaris brevis as well as through the transverse carpal ligament distally.? Once I encountered the floor of the transverse carpal ligament and entered into the carpal tunnel I then switched to dissection scissors.? Carefully released the distal extent of the transverse carpal ligament to the palmar fat.? Care was to protect the recurrent branch and not injured this during this part of the case.? Next I then placed a [place] underneath the transverse carpal ligament proximally to protect the nerve in the carpal tunnel contents.? And then I subsequently under loupe magnification utilize my dissection scissors to release the transverse carpal ligament into the antebrachial fascia under direct visualization with care to keep my scissors with a curved ulnarly away from the palmar cutaneous branch.? Nasal speculum placed proximally on top of the transverse carpal ligament to have direct visualization. The transverse carpal ligament was then completely decompressed proximally and a [place] was then placed both distally and proximally throughout the carpal tunnel and had complete decompression of the nerve.? The nerve did appear to have hourglass shape as it went through the carpal tunnel.? With significant irritation noted around the nerve.? No masses were noted within the contents of the carpal tunnel.? This completed the carpal tunnel release and then I subsequently irrigated the wound bed and placed a wet Ray-Tomas into the incision for later closure. Next marked out the landmarks of the right elbow of the medial epicondyle and olecranon and made a curvilinear incision following the course of the ulnar nerve at the medial aspect of the elbow.? Sharp scalpel incision was made through skin and subcutaneous tissue.? Next I switched to Littler dissection scissors and spread in plane of the medial antebrachial cutaneous nerve branching which was protected throughout this part of the dissection.? Then I directly came down over the fascia and identified the 2 heads of the FCU fascia and split this right in the middle and subsequently identified my ulnar nerve distally.? This was then completely released distally under direct visualization and loupe magnification.? Once the nerve was then identified I then subsequently tracked this proximally and released this through Lazo's ligament as well as complete decompression of the nerve proximally all the way past the intermuscular septum.? The nerve was completely released and decompressed both proximally and distally.? Ulnar nerve neurolysis performed and completed both proximally and distally with dissection scissors.? I then took the elbow through range of motion and there was no instability or subluxating of the ulnar nerve.? This completed?cubital tunnel release.? ?Next the wound bed was thoroughly irrigated.? Tourniquet was deflated.? Hemostasis was satisfactory at the?cubital tunnel release surgery site. I then inspected the carpal tunnel incision and this was found to have satisfactory hemostasis and all this was maintained through bipolar electrocautery.? At this point time I sequentially closed?cubital tunnel site with 3-0 Vicryl suture in a running horizontal mattress nylon stitch.? ? The carpal tunnel release surgery was then closed in standard interrupted mattress fashion.? Dressing was Xeroform 4 x 4's ABD Curlex soft roll and an Sebas wrap has a bulky soft dressing. Patient was then awakened from anesthesia and taken to PACU in stable condition. Disposition: Patient taken to PACU in stable condition recovering well.? Patient will receive appropriate discharge instructions as well as pain medication postoperatively.? We will follow-up with me in the office in 2 weeks.? Patient understands agrees with current plan.? All questions answered.? He understands if any questions or concerns and contact the office for follow-up appointment..
--- NOTE | 2023-10-06 13:24 | P.BOP_ITS ---
Date of Procedure: [October 06, 2023] Surgeon: [Dr. Khan DO] Shelf Stocker(s): [Eric Khan PA-C] Procedure(s) performed: [Right carpal tunnel release Right cubital tunnel release at the elbow] Findings of the procedure(s): [Right carpal tunnel syndrome and right cubital tunnel syndrome.] Estimated blood loss: [5 mL] Specimen(s) removed: [N/A] Post-operative diagnosis: [Right carpal tunnel syndrome and right cubital tunnel syndrome]
--- NOTE | 2023-10-06 13:27 | PM.PACU ---
PACU note Narrative: Patient is a 62-year-old female just underwent a right carpal tunnel release and right cubital tunnel release. Patient transferred to PACU in stable condition. Pain is well controlled. Dressing on hand is dry and in place. Patient's fingers are warm and well-perfused. Patient can wiggle fingers. normal cap refill under 2 seconds. Patient has normal elbow range of motion. Unable to assess sensation due to residual localized anesthetic. Exam: awake Disposition: discharged
--- NOTE | 2023-10-06 14:30 | ANE.PACU2 ---
Inpatient post-anesthesia follow up: Airway intact: Yes Vital signs: Temperature 97.4 F Pulse Rate 79 Respiratory Rate 18 Blood Pressure 117/79 Pulse Oximetry 95 Oxygen Delivery Me thod Room Air Oxygen Flow Rate 6 Fraction of Inspir ed Oxygen Hydration adequate: Yes Nausea and vomiting: No Pain level: 1 Mental status: Baseline
== END 2023-10-06 14:30 | disposition home or self-care (01) ==
PROVIDERS: PCP Family Medicine; Visit Provider Student in an Organized Health Care Education/Training Program
PROC: (CPT 64721; principal; 2023-10-06 11:15)
PROC: (CPT 64718; 2023-10-06 11:15)
DX: G56.01 Carpal tunnel syndrome, right upper limb (principal); G56.21 Lesion of ulnar nerve, right upper limb; J44.9 Chronic obstructive pulmonary disease, unspecified; G47.30 Sleep apnea, unspecified; I10 Essential (primary) hypertension; E11.9 Type 2 diabetes mellitus without complications; E66.01 Morbid (severe) obesity due to excess calories; Z68.38 Body mass index [BMI] 38.0-38.9, adult; G47.33 Obstructive sleep apnea (adult) (pediatric); E11.40 Type 2 diabetes mellitus with diabetic neuropathy, unspecified; Z87.11 Personal history of peptic ulcer disease; Z87.891 Personal history of nicotine dependence
CPT/HCPCS: 64718; 64721; 36416; 82962; J0131; J0330; J0690; J1100; J1200; J1885; J2250; J2371; J2405; J2704; J2795; J3010; J7030

== ENCOUNTER → 2023-10-19 09:29 | Outpatient (BNVA) | payer MEDICARE, SELFPAY | PROVIDERS: PCP Family Medicine; Visit Provider Student in an Organized Health Care Education/Training Program | DX: G56.02 Carpal tunnel syndrome, left upper limb (principal); G56.22 Lesion of ulnar nerve, left upper limb; G56.01 Carpal tunnel syndrome, right upper limb; G56.21 Lesion of ulnar nerve, right upper limb | CPT/HCPCS: 99214 ==

== ENCOUNTER 2023-11-04 08:13 | Emergency (ER) | payer MEDICARE, SELFPAY ==
[2023-11-04 08:21] VITALS: BP 156/106; PULSE 81; RESP 18; TEMP 36.7; O2SAT 98; BMI 38.7
--- NOTE | 2023-11-04 08:54 | XR_ITS ---
WS: [id number] Portable AP upright chest, 11/04/2023 Clinical Data: dyspnea/cough Comparison: Portable chest, 04/08/2023 Findings: No nodules, masses or effusions are seen. The heart is enlarged. The pulmonary vascularity is not increased. No pneumonia or pneumothorax is seen. The aortic arch and descending thoracic aorta show tortuosity. XR/XR chest 1V portable [id number] Impression: Cardiomegaly and atherosclerosis.
--- NOTE | 2023-11-04 08:55 | CT_ITS ---
WS: [id number] CT ABDOMEN AND PELVIS NONCONTRAST HISTORY: Abdominal pain TECHNIQUE: Imaging performed through the abdomen and pelvis. Coronal and sagittal reformats are submi tted. All CT scans at [facility] use at least one of these dose optimization techniques: auto mated exposure control; mA and/or kV adjustment per patient size (includes targeted exams where dose is matched to clinical indication); or iterative reconstruction. DLP: 838.70 mGy.cm COMPARISON: 02/01/2018 Lower thorax: Stable 3 mm noncalcified nodule LEFT lung base. Cardiac silhouette is enlarged predomin antly by a large amount of pericardiac fat surrounding the heart. Large amount of fat along the intra -atrial septum is incompletely included. Liver: Mild hepatic steatosis and hepatomegaly. Gallbladder: Normal gallbladder. No pericholecystic fluid or cholelithiasis. No gallbladder wall thic kening. Pancreas: Normal size and attenuation. Normal pancreatic duct. No pancreatitis or mass. Spleen: Normal. Adrenal glands: Normal. No mass. Right kidney: Normal size kidney with no mass or hydronephrosis. Left kidney: Mild perinephric stranding. There are a few scattered areas of subtle cortical thinning. No obstruction. Aorta: Moderate to severe atherosclerosis abdominal aorta. Mild ectasia. No aneurysm. Atherosclerosis continues into the common iliac arteries. No free fluid, intraperitoneal air or significant lymphadenopathy. GI tract: Normal stomach. No small bowel obstruction. Normal appendix. Mild diverticular disease. No evidence for acute diverticulitis at this time. No abscess. Abdominal wall: Negative. No hernia. Pelvis: Well-distended urinary bladder. Atrophic uterus with calcified fibroids. Negative bladder. Osseous structures: Prior LEFT hip arthroplasty. Grade 1 anterolisthesis of L5 with bilateral pars de fects at L5. Advanced degenerative disc disease at L5-S1. CT/CT abdomen pelvis wo con [id number] IMPRESSION: 1. No acute abdominal or pelvic abnormalities identified. 2. No GI tract obstruction. 3. No renal obstruction. 4. Mild distal colonic diverticulosis. No evidence for acute diverticulitis at this time. 5. Normal appendix. 6. Fibroid uterus. 7. Ectatic mildly dilated abdominal aorta. 8. Grade 1 L5-S1 spondylolisthesis with spondylolysis.
[2023-11-04] MEDS: sodium chloride 0.9% 1,000 ML 999 ML IV (09:03)
[2023-11-04 09:05] VITALS: BP 124/88; PULSE 81; O2SAT 97
[2023-11-04 09:06] LABS: Basophils # 0.1 10^3/uL (0.0-0.1); Basophils % 0.6 %; Eosinophils # 0.1 10^3/uL (0.0-0.8); Eosinophils % 1.1 %; Hematocrit 39.4 % (36-47); Lymphocytes # 1.5 10^3/uL (0.8-4.8); Lymphocytes % 12.9 %; Mean Corpuscular HGB Conc 32.5 g/dL (30-55); Mean Corpuscular Hemoglobin 29.4 pg (27-33); Mean Corpuscular Volume 90.6 fl (85-98); Mean Platelet Volume 9.8 fL (7.4-10.4); Monocytes # 0.8 10^3/uL (0.2-0.9); Monocytes % 6.5 %; Neutrophils # 9.25 10^3/uL (1.8-7.7); Neutrophils % 78.6 %; Nucleated Red Blood Cells % 0 %; Platelet Count 419 10^3/cmm (157-399); Red Blood Count 4.35 10^6/uL (3.85-5.65); Red Cell Distribution Width 14.6 % (12.1-15.1); White Blood Count 11.77 10^3/uL (3.29-11.43)
[2023-11-04 09:15] LABS: Alanine Aminotransferase 8 U/L (0-33); Alkaline Phosphatase 106 U/L (35-105); Aspartate Amino Transferase 11 U/L (0-32); Blood Urea Nitrogen 7 mg/dL (8-23); Calcium 9.4 mg/dL (8.5-10.5); Carbon Dioxide 21 mmol/L (22-29); Chloride 99 mmol/L (98-107); Creatinine Clr Calc Pharmacy 97.0319; Glomerular Filtration Rate 101.3 mL/min (90-130); Glucose 134 mg/dL (65-115); Osmolality Calculated 278 mOsm/kg (285-295); Sodium 134 mmol/L (136-145); Total Bilirubin 0.5 mg/dL (0.15-1.2)
--- NOTE | 2023-11-04 09:20 | ED_ITS ---
HPI - Nausea/Vomiting/Diarrhea 2 General: Chief complaint: Nausea/Vomiting/Diarrhea Stated complaint: Low back pain Time Seen by Provider: 11/04/23 08:36 Source: patient Mode of arrival: ambulatory History of Present Illness: 61-year-old female presents emergency ro om complaining of diarrhea for the last 3 months very loose semiformed stools. This began immediately after she started taking Ozempic no recent antibiotic prescriptions. She has been drinking a lot of fluids and peeing often. She has not been checking her blood sugar regularly recently. She is also complaining of back pain she denies any dysuria urgency or frequency or hematuria. Denies hematochezia melena hematemesis or coffee- ground emesis. She did make mention of a lump on her chest although in the course of exam what she is palpating is the lower portion of her xiphoid. Associated symtoms: Denies chest pain or dysuria Review of Systems 2 Const: Denies: fever(s) or chills Card: Denies: chest pain Resp: Denies: dyspnea GI: Reports: diarrhea; Denies: abdominal pain : Denies: dysuria, urinary frequency or urinary urgency Musc: Denies: neck pain or back pain Skin/Breast: Denies: rash PFSH ED 2 PFSH: Medical History Tuberculosis Laryngeal stenosis Cardiomegaly Elevated brain natriuretic peptide (BNP) level Dyspnea Elevated blood pressure reading Shortness of breath Chronic back pain Alpha galactosidase deficiency YUNI (obstructive sleep apnea) Seasonal allergies Anxiety Hyperlipidemia Essential hypertension COPD (chronic obstructive pulmonary disease) Diabetes Neuropathy Bipolar 1 disorder Enlarged liver Arthritis Vertigo Hypertension High cholesterol Acute back pain with sciatica Peptic ulcer COPD exacerbation Surgical History History of History of tonsillectomy History of left knee replacement Status post left hip replacement Family History Grandfather Cancer Maternal-prostate Grandmother Cancer Maternal-unknown Other Bleeding disorder Dementia Diabetes Hyperlipidemia Hypertension Lung disease Psychiatric illness Denies family history of CAD (coronary artery disease) Clotting disorder Chronic kidney disease (CKD) Anesthesia complication Stroke Social History (Reviewed 11/04/23 @ 15:52 by CHAMP Landry Smoking and tobacco/nicotine status: former use of tobacco/nicotine Alcohol intake: never Substance/Drug Use: current Substance/Drug use frequency: Special occassions/opportunity only Lives independently: Yes Current occupational status: disabled Special colin needs: No Agree to transfusion: Yes Physical Exam 2 Const: GENERAL APPEARANCE: cooperative and comfortable O RIENTATION/CONSCIOUSNESS: Yes awake, Yes oriented to person, Yes oriented to place and Yes oriented to time HENMT: COMMON NORMALS: normocephalic, atraumatic and hearing grossly normal bilaterally HEAD & SCALP: normocephalic and atraumatic Chest: OTHER: Lump is very of concern patient is referring to is her xiphoid process. Palpable on exam mildly tender Resp: COMMON NORMALS: normal respiratory effort, No retractions, No use of accessory muscles and clear to auscultation bilaterally AUSCULTATION: clear to auscultation bilaterally Cardio: COMMON NORMALS: regular rate, regular rhythm and No murmurs present (Cardio) RATE: regular rate RHYTHM: regular rhythm GI: COMMON NORMALS: Soft to palpation and No hepatosplenomegaly present A USCULTATION: Yes normoactive bowel sounds PALPATION: Yes Soft to palpation, No Tenderness to palpation present (GI), No Guarding due to palpation present (GI) and Yes No hepatosplenomegaly present Extremity: COMMON NORMALS: normal to inspection, capillary refill normal, no clubbing, cyanosis or edema, no calf tenderness and no pedal edema Neuro: SENSORIUM/ORIENTATION: Yes oriented to person, Yes oriented to place and Yes oriented to time Skin: COMMON NORMALS: no rashes or lesions noted GENERAL SKIN EXAM: no rashes or lesions noted Course 2 Vital Signs: Vital signs: Vital Signs Temperature 98.1 F 11/04/23 13:30 Pulse Rate 74 11/04/23 13:30 Respiratory Rate 18 11/04/23 13:30 Blood Pressure 140/101 11/04/23 13:30 Pulse Oximetry 96 11/04/23 13:30 Oxygen Delivery Me thod Room Air 11/04/23 12:23 MDM - Nausea/Vomiting/Diarrhea Medical Decision Making Labs and imaging reviewed. BUN and creatinine normal very slightly decreased sodium white count of 11.7. Patient is denying any mucousy stools or any bloody stools no recent antibiotics we did do C. difficile and stool cultures given the length of time she has had her symptoms. She has no red flag symptoms related to her back pain and no recent trauma. CT abdomen pelvis showed no evidence of acute diverticulitis otherwise generally unremarkable for any acute pathology there is no thickening of the colon. Will discharge patient who with her chronic diarrhea she will have stool cultures that are still pending encouraged her to follow-up with her primary care doctor if this persist she may need referral to gastroenterology. She is not really having any left lower quadrant pain there is no signs of diverticulitis on the exam she has not had any bright red blood per rectum or appendix appeared normal. No urinary symptoms. Given her chronic diarrhea do not think adding antibiotics without a specific sizable cause would be helpful at this time and may actually be somewhat harmful. She has worsening or change in her symptoms or develops blood in her stool or fever return to the emergency room Medical Records I reviewed the patient's medical records. Lab Data I reviewed the patient's lab results. 11/04/23 08:33 11/04/23 08:33 Radiology Impressions Chest X-Ray 11/04/23 08:54 Impression: Cardiomegaly and atherosclerosis. Abdomen/Pelvis CT 11/04/23 08:55 IMPRESSION: 1. No acute abdominal or pelvic abnormalities identified. 2. No GI tract obstruction. 3. No renal obstruction. 4. Mild distal colonic diverticulosis. No evidence for acute diverticulitis at this time. 5. Normal appendix. 6. Fibroid uterus. 7. Ectatic mildly dilated abdominal aorta. 8. Grade 1 L5-S1 spondylolisthesis with spondylolysis. Laboratory Results WBC 11.77 10^3/uL (3.29-11.43) H 11/04/23 08:33 RBC 4.35 10^6/uL (3.85-5.65) 11/04/23 08:33 Hgb 12.80 g/dL (11.27-16.99) 11/04/23 08:33 Hct 39.4 % (36-47) 11/04/23 08:33 MCV 90.6 fl (85-98) 11/04/23 08:33 MCH 29.4 pg (27-33) 11/04/23 08:33 MCHC 32.5 g/dL (30-55) 11/04/23 08:33 RDW 14.6 % (12.1-15.1) 11/04/23 08:33 Plt Count 419 10^3/cmm (157-399) H 11/04/23 08:33 MPV 9.8 fL (7.4-10.4) 11/04/23 08:33 Neut % (Auto) 78.6 % 11/04/23 08:33 Lymph % (Auto) 12.9 % 11/04/23 08:33 [place] % (Auto) 6.5 % 11/04/23 08:33 Eos % (Auto) 1.1 % 11/04/23 08:33 Baso % (Auto) 0.6 % 11/04/23 08:33 Neut # (Auto) 9.25 10^3/uL (1.8-7.7) H 11/04/23 08:33 Lymph # (Auto) 1.5 10^3/uL (0.8-4.8) 11/04/23 08:33 [place] # (Auto) 0.8 10^3/uL (0.2-0.9) 11/04/23 08:33 Eos # (Auto) 0.1 10^3/uL (0.0-0.8) 11/04/23 08:33 Baso # (Auto) 0.1 10^3/uL (0.0-0.1) 11/04/23 08:33 Nucleated RBC % (auto) 0 % 11/04/23 08:33 Nucleated RBCs # 0.0 /100WBC 11/04/23 08:33 Sodium 134 mmol/L (136-145) L 11/04/23 08:33 Potassium 3.9 mmol/L (3.5-5.1) 11/04/23 08:33 Chloride 99 mmol/L (98-107) 11/04/23 08:33 Carbon Dioxide 21 mmol/L (22-29) L 11/04/23 08:33 Anion Gap 17.9 (5-19) 11/04/23 08:33 BUN 7 mg/dL (8-23) L 11/04/23 08:33 Creatinine 0.6 mg/dL (0.5-0.9) 11/04/23 08:33 GFR Calculation 101.3 mL/min (90-130) 11/04/23 08:33 Glucose 134 mg/dL (65-115) H 11/04/23 08:33 Calculated Osmolality 278 mOsm/kg (285-295) L 11/04/23 08:33 Calcium 9.4 mg/dL (8.5-10.5) 11/04/23 08:33 Total Bilirubin 0.5 mg/dL (0.15-1.2) 11/04/23 08:33 AST 11 U/L (0-32) 11/04/23 08:33 ALT 8 U/L (0-33) 11/04/23 08:33 Alkaline Phosphatase 106 U/L (35-105) H 11/04/23 08:33 Total Protein 7.0 g/dL (6.6-8.7) 11/04/23 08:33 Albumin 4.0 g/dL (3.5-5.2) 11/04/23 08:33 Globulin 3.0 g/dL (1.3-4.6) 11/04/23 08:33 Lipase 16 U/L (13-60) 11/04/23 08:33 Urine Color Yellow (Yellow) 11/04/23 08:40 Urine Appearance Cloudy (CLEAR) A 11/04/23 08:40 Urine pH 6 (5-7) 11/04/23 08:40 Ur Specific [place] 1.015 (1.005-1.030) 11/04/23 08:40 Urine Protein Neg (Negative) 11/04/23 08:40 Urine Glucose (UA) Norm (Normal) 11/04/23 08:40 Urine Ketones 2+ (Negative) H 11/04/23 08:40 Urine Blood Neg (Negative) 11/04/23 08:40 Urine Nitrate Negative (Negative) 11/04/23 08:40 Urine Bilirubin Neg (Negative) 11/04/23 08:40 Urine Urobilinogen Norm mg/dL (Negative) 11/04/23 08:40 Ur Leukocyte Esterase Negative (Negative) 11/04/23 08:40 Urine RBC 0-4 /hpf (0-2) H 11/04/23 08:40 Urine WBC 0-4 /hpf (0-5) H 11/04/23 08:40 Ur Squamous Epith Cells 5-10 /hpf (0-5) H 11/04/23 08:40 Amorphous Sediment Not Reportable 11/04/23 08:40 Urine Bacteria Trace /hpf (NONE) 11/04/23 08:40 All radiology interpretation(s) finalized by discharge Discharge Plan Discharge Patient Disposition: Home Clinical Impression: Chronic diarrhea Condition: Stable Prescriptions: No Action pravastatin 20 mg tablet 20 mg PO QPM albuterol sulfate 2.5 mg /3 mL (0.083 %) solution for nebulization 2.5 mg inhalation Q4H PRN (Reason: Shortness Of Breath) dicyclomine 10 mg capsule 10 mg PO BID fluticasone propionate 50 mcg/actuation spray,suspension 2 spray intranasal DAILY PRN (Reason: Allergy Symptoms) Qty: 16 3RF Rx Instructions: administer into each nostril meclizine 25 mg tablet 25 mg PO DAILY PRN (Reason: motion sickness) Qty: 30 0RF alprazolam 1 mg tablet 1 mg PO TID PRN (Reason: Anxiety) Qty: 90 0RF hydrocodone-acetaminophen 7.5-325 mg tablet 1 tab PO BID PRN (Reason: postop pain) 7 Days Qty: 14 0RF Spiriva Respimat 2.5 mcg/actuation mist 1 puff inhalation DAILY Qty: 4 3RF (DME) CPAP mask, tubing, supplies See Rx Instructions .ROUTE .MEDSUPPLY Qty: 1 1RF Rx Instructions: As directed duloxetine 30 mg capsule,delayed release(DR/EC) 30 mg PO DAILY Qty: 30 1RF budesonide-formoterol [Symbicort] 160-4.5 mcg/actuation HFA aerosol inhaler 2 puff inhalation BID Qty: 10.2 0RF metoprolol succinate 25 mg tablet extended release 24 hr 25 mg PO DAILY Qty: 90 0RF pantoprazole 20 mg tablet,delayed release (DR/EC) 20 mg PO DAILY Qty: 90 0RF lisinopril 20 mg tablet See Rx Instructions .ROUTE .COMPLEX Qty: 30 0RF Dose Instruction: TAKE ONE TABLET BY MOUTH EVERY MORNING Rx Instructions: TAKE ONE TABLET BY MOUTH EVERY MORNING ibuprofen 600 mg tablet 600 mg PO TID PRN (Reason: pain) Qty: 120 1RF eszopiclone 3 mg tablet 3 mg PO .qnightly PRN (Reason: insomnia) Qty: 30 0RF chlorzoxazone 500 mg tablet See Rx Instructions .ROUTE .COMPLEX Qty: 120 0RF Dose Instruction: Take 2 tablets by mouth twice daily Rx Instructions: Take 2 tablets by mouth twice daily lidocaine 5 % Adhesive Patch,Medicated 1 patch topical [id number] Qty: 30 0RF epinephrine 0.3 mg/0.3 mL Auto-Injector 0.3 mg IM Q4H PRN (Reason: Anaphylaxis) gabapentin 600 mg Tablet 1,800 mg PO BID Discharge Orders: Discharge ED (Routine); Ordered 11/04/23 Ordered By: Henry Rudd Referrals: Marina Rasheed DO [Primary Care Provider] - Discharge Diet: Usual diet Discharge Activity: Increase activity as tolerated Patient Instructions: Opioid Safety, Pain Management Activity Restrictions/Additional Instructions: Thank you for choosing [facility] for your healthcare needs today. Please realize this is an emergency room and that we are providing you with a medical screening exam and this may not be complete and all inclusive of all the testing and or work up that you may need to determine your ailment or severity of your illness. It is very important that you follow up as instructed or that you return to the Emergency Department should you have concerns or if your condition changes or worsens in any way. You were seen today for chronic diarrhea. Your labs did not show significant abnormalities and the CT was unremarkable for emergent problems. We do recommend that you follow-up with your primary care doctor. Stool studies were done today that will take several days to result. If you develop bloody stools, fever or worsening abdominal pain return to the emergency room. Follow-up with your primary care doctor to review the stool studies that were done in the emergency room today if your symptoms persist you may require referral to gastroenterology as an outpatient. Coding Level of Care Code ED Provider Relations Consultant for Emerald Castillo
[2023-11-04 09:21] LABS: Anion Gap 17.9 (5-19); Potassium 3.9 mmol/L (3.5-5.1)
[2023-11-04 09:56] LABS: Lipase 16 U/L (13-60)
[2023-11-04] MEDS: ketorolac 30 mg/mL INJ IVP (10:27)
[2023-11-04] MEDS: dexamethasone 10 mg/mL INJ IM (10:28)
[2023-11-04 10:32] VITALS: BP 117/79; PULSE 83; O2SAT 97
[2023-11-04 11:16] VITALS: BP 112/71; PULSE 80; O2SAT 96
--- NOTE | 2023-11-04 11:34 | PC.NURSE ---
PER VERBAL ORDER PER DR. ELIZALDE, GIVE DECADRON IVP.
[2023-11-04 11:46] LABS: Add Urine Microscopic? YES; Bacteria Urine TRACE /hpf; Bilirubin Urine Neg (Negative); Blood Urine Neg (Negative); Glucose Urine UA Norm (Normal); Ketones Urine 2+ (Negative); Leukocyte Esterase Urine Negative (Negative); Nitrate Urine Negative (Negative); Protein Urine Neg (Negative); RBC Urine 0-4 /hpf (0-2); Specific Gravity, Urine 1.015 (1.005-1.030); Urine Appearance Cloudy (CLEAR); Urine Color Yellow (Yellow); Urobilinogen Urine Norm (Negative); WBC Urine 0-4 /hpf (0-5); pH Urine 6 (5-7)
[2023-11-04 12:23] VITALS: BP 140/101; PULSE 74; O2SAT 96
[2023-11-04 13:30] VITALS: BP 140/101; PULSE 74; RESP 18; TEMP 36.7; O2SAT 96
== END 2023-11-04 13:31 | disposition home or self-care (01) ==
PROVIDERS: Emergency Provider Family Medicine; PCP Family Medicine
DX: K52.9 Noninfective gastroenteritis and colitis, unspecified (principal); Z87.891 Personal history of nicotine dependence; E78.5 Hyperlipidemia, unspecified; J44.9 Chronic obstructive pulmonary disease, unspecified; I10 Essential (primary) hypertension
CPT/HCPCS: 71045; 74176; 80053; 81001; 83690; 85025; 96361; 96374; 99285; J1100; J1885; J7030

== ENCOUNTER 2023-11-16 14:40 | Outpatient (RCR) | payer MEDICARE, MEDICAID, SELFPAY | END 2023-12-12 23:59 | disposition home or self-care (01) | LOC: SST 14:40 | PROVIDERS: PCP Family Medicine; Visit Provider Specialist | DX: R49.0 Dysphonia (principal) | CPT/HCPCS: 92524 ==

== ENCOUNTER → 2023-11-17 13:15 | Outpatient (BNVA) | payer MEDICARE, MEDICAID, SELFPAY | PROVIDERS: PCP Family Medicine; Visit Provider Podiatrist Foot & Ankle Surgery | DX: E11.42 Type 2 diabetes mellitus with diabetic polyneuropathy (principal); I73.9 Peripheral vascular disease, unspecified; L60.3 Nail dystrophy; L84 Corns and callosities | CPT/HCPCS: 11055; 11721 ==

== ENCOUNTER 2024-01-03 09:08 | Emergency (ER) | payer MEDICARE, MEDICAID, SELFPAY ==
[2024-01-03 09:20] VITALS: BP 189/164; PULSE 90; RESP 18; TEMP 36.9; O2SAT 97; BMI 35.2
[2024-01-03 09:25] VITALS: BP 189/164; PULSE 90; RESP 18; TEMP 36.9; O2SAT 97
--- NOTE | 2024-01-03 09:48 | W.ED.FALL ---
HPI - Fall General: Chief Complaint: Back Pain/Injury Stated Complaint: back pain, fall and drug by dog Time Seen by Provider: 01/03/24 09:14 Source: patient Mode of arrival: ambulatory Limitations: no limitations History of Present Illness: Patient is a nice 63-year-old female presents to ED today for evaluation following a fall approximately 3 days ago after she accidentally tripped over her dog. Patient states she is having pain to her right shoulder, left wrist with a small abrasion here as well as lower back pain. Patient has been ambulatory without difficulty or assistance. Tetanus is up-to-date. She reports scattered bruising throughout her upper extremities. MD complaint: fall Onset (ago): day(s) Fall from: standing Fall witnessed: no Place fall occurred: home Loss of consciousness: None Prolonged down time: no Symptoms prior to fall: none Context: tripped/slipped (dog tripped her) Location of injury: back Location of injury - extremities: Right: shoulder Severity: moderate Associated symptoms-after fall: Denies abdominal pain, chest pain, headache(s), hematuria, lightheadedness or neck pain Review of Systems Eyes: Denies: change in vision, blurry vision, photophobia, eye discharge, floaters or seeing flashes ENMT: Denies: throat pain, odynophagia, ear or mastoid pain, ear discharge, nasal discharge, epistaxis or sinus pain Card: Denies: chest pain, palpitations, lightheadedness, syncope or pre-syncope Resp: Denies: dyspnea or pain on inspiration GI: Denies: abdominal pain : Denies: flank pain or hematuria Musc: Reports: back pain and joint pain (R shoulder, L wrist); Denies: neck pain or extremity pain Skin/Breast: Reports: other (ecchymosis bilat forearm, R anterior shoulder; abrasion/healing lac L wrist) Neuro: Denies: headache(s), numbness in extremities, weakness in extremities, sensory changes or dizziness [facility] ED PFSH: Medical History Left-sided low back pain with sciatica BMI 35.0-35.9,adult Ulnar neuropathy at elbow of left upper extremity Laryngeal stenosis Right carpal tunnel syndrome Diabetes type 2, controlled Tuberculosis Cardiomegaly Elevated brain natriuretic peptide (BNP) level Elevated blood pressure reading Chronic back pain Alpha galactosidase deficiency YUNI (obstructive sleep apnea) Seasonal allergies Anxiety Hyperlipidemia Essential hypertension COPD (chronic obstructive pulmonary disease) Diabetes Neuropathy Bipolar 1 disorder Enlarged liver Arthritis Chronic back pain Vertigo Hypertension High cholesterol Peptic ulcer Surgical History S/P carpal tunnel release right CTS release 10/06/23 Dr. Khan Status post right knee replacement History of History of tonsillectomy History of left knee replacement Status post left hip replacement Family History Grandfather Cancer Maternal-prostate Grandmother Cancer Maternal-unknown Other Bleeding disorder Dementia Diabetes Hyperlipidemia Hypertension Lung disease Psychiatric illness Denies family history of CAD (coronary artery disease) Clotting disorder Chronic kidney disease (CKD) Anesthesia complication Stroke Social History Smoking and tobacco/nicotine status: former use of tobacco/nicotine Alcohol intake: never Substance/Drug Use: current Substance/Drug use frequency: Special occassions/opportunity only Lives independently: Yes Current occupational status: disabled Special colin needs: No Agree to transfusion: Yes Physical Exam Const: COMMON NORMALS: no acute distress, patient oriented x3, no limitations, healthy appearing, alert and well nourished GENERAL APPEARANCE: cooperative NUTRITIONAL APPEARANCE: overweight ORIENTATION/CONSCIOUSNESS: Yes awake, Yes oriented to person, Yes oriented to place and Yes oriented to time HENMT: COMMON NORMALS: normocephalic, atraumatic and TM's normal bilaterally HEAD & SCALP: normal to inspection, normocephalic and atraumatic; no Aceves's sign, no hematoma and no raccoon eyes FACE & SINUS: normal facial exam TYMPANIC MEMBRANE: TM's normal bilaterally MOUTH: other (no intraoral injuries noted) Eye: COMMON NORMALS: Equal, round and reactive pupils present and EOMs intact bilaterally GENERAL EYE: appearance normal, both eyes and all related structures and normal light reflex PUPIL: Yes Equal, round and reactive pupils present DIRECT OPHTHALMOSCOPY: Yes normal light reflex Neck/C-Spine: COMMON NORMALS: full ROM GENERAL: Yes normal visual inspection CERVICAL SPINE: Yes cervical ROM normal, No pain with cervical ROM, No Cervical spine tenderness, No step off deformity and No Paracervical muscle tenderness Chest: COMMONS NORMALS: normal inspection of the chest and normal palpation of entire chest wall Resp: COMMON NORMALS: normal respiratory effort and clear to auscultation bilaterally AUSCULTATION: clear to auscultation bilaterally Cardio: COMMON NORMALS: regular rate and regular rhythm RATE: regular rate RHYTHM: regular rhythm GI: COMMON NORMALS: Normal to inspection, nondistended, normoactive bowel sounds present, Soft to palpation, non-tender, No hepatosplenomegaly present and no masses INSPECTION: Yes normal to inspection and No abdominal wall ecchymosis AUSCULTATION: Yes normoactive bowel sounds PALPATION: Yes Soft to palpation and Yes No hepatosplenomegaly present Back/Pelvis: COMMON NORMALS: thoracic and lumbar spine normal to inspection THORACIC SPINE/UPPER BACK: No thoracic spinal tenderness LUMBAR SPINE/LOWER BACK: Yes lumbar spinal tenderness and No paraspinal muscle tenderness PELVIS: Yes buttocks normal and No sciatic notch tenderness SACRUM: no swelling and tenderness COCCYX: no tenderness Extremity: COMMON NORMALS: full ROM and capillary refill normal GENERAL: Yes normal exam except as noted RIGHT UPPER EXTREMITY: Yes shoulder joint (ecchymosis R anterior shoulder joint) Right shoulder: Yes Right shoulder joint ROM exam (normal) and Yes Right shoulder joint neurovascular exam (normal) LEFT UPPER EXTREMITY: Yes wrist (ecchymosis; abrasion vs old/healing laceration w/o drainage/erythema) Left wrist: Yes ROM (normal) and Yes neurovascular exam (normal) Neuro: KELSEY COMA SCALE: document GCS findings Kelsey coma scale eye opening: Spontaneous [place] coma scale verbal response: Orientated Kelsey coma scale motor response: Obey commands [place] coma scale total score: 15 COMMON NORMALS: patient oriented x3, CN's II-XII intact bilaterally, moves all extremities, no focal motor deficits, no sensory deficits noted and gait normal SENSORIUM/ORIENTATION: Yes alert, Yes oriented to person, Yes oriented to place and Yes oriented to time SPEECH: speech normal GAIT: Yes Normal gait present Skin: COMMON NORMALS: no rashes or lesions noted GENERAL SKIN EXAM: no rashes or lesions noted Course Vital Signs: Vital signs: Vital Signs Temperature 98.4 F 01/03/24 09:25 Pulse Rate 80 01/03/24 10:50 Respiratory Rate 18 01/03/24 09:25 Blood Pressure 189/164 01/03/24 10:50 Pulse Oximetry 97 01/03/24 10:50 Oxygen Delivery Me thod Room Air 01/03/24 10:50 MDM - Fall Medical Decision Making XRs showing no acute fxs. Requesting muscle relaxer and something for pain which will be provided. Recommend follow up with PCP later this week if symptoms do not seem to be improving. Lab Data Radiology Impressions Lumbar Spine X-Ray 01/03/24 09:56 IMPRESSION: Stable abnormal lumbar spine without acute abnormality. Sacrum and Coccyx X-Ray 01/03/24 09:56 IMPRESSION: No acute abnormality. Shoulder X-Ray 01/03/24 09:56 IMPRESSION: No acute abnormality. Old traumatic change in the acromioclavicular joint. 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 Wrist X-Ray 01/03/24 09:56 IMPRESSION: Stable left wrist without acute abnormality. Arthropathic changes as above. All radiology interpretation(s) finalized by discharge Discharge Plan Discharge Patient Disposition: Home Clinical Impression: Fall from slip, trip, or stumble Qualifiers: Encounter type: initial encounter Qualified Code(s): W01.0XXA - Fall on same level from slipping, tripping and stumbling without subsequent striking against object, initial encounter Back pain Qualifiers: Back pain location: low back pain Chronicity: acute Back pain laterality: midline Sciatica presence: without sciatica Qualified Code(s): M54.50 - Low back pain, unspecified Contusion of right shoulder Qualifiers: Encounter type: initial encounter Qualified Code(s): S40.011A - Contusion of right shoulder, initial encounter Contusion of left wrist Qualifiers: Encounter type: initial encounter Qualified Code(s): S60.212A - Contusion of left wrist, initial encounter Condition: Stable Prescriptions: New cyclobenzaprine 10 mg tablet 10 mg PO TID Qty: 14 0RF hydrocodone-acetaminophen 7.5-325 mg tablet 1 tab PO Q8H PRN (Reason: pain) Qty: 10 0RF No Action (DME) CPAP mask, tubing, supplies See Rx Instructions .ROUTE .MEDSUPPLY Qty: 1 1RF Rx Instructions: As directed pantoprazole 20 mg tablet,delayed release (DR/EC) 20 mg PO DAILY Qty: 90 0RF Spiriva Respimat 2.5 mcg/actuation mist 1 puff inhalation DAILY Qty: 4 3RF fluticasone propionate 50 mcg/actuation spray,suspension 2 spray intranasal DAILY PRN (Reason: Allergy Symptoms) Qty: 16 3RF Rx Instructions: administer into each nostril albuterol sulfate 2.5 mg /3 mL (0.083 %) solution for nebulization 2.5 mg inhalation Q4H PRN (Reason: Shortness Of Breath) Qty: 90 1RF budesonide-formoterol [Breyna] 160-4.5 mcg/actuation HFA aerosol inhaler 2 puff inhalation BID Qty: 10.2 3RF lidocaine 5 % Adhesive Patch,Medicated 1 patch topical [id number] Qty: 30 0RF epinephrine 0.3 mg/0.3 mL Auto-Injector 0.3 mg IM Q4H PRN (Reason: Anaphylaxis) gabapentin 600 mg tablet 1,200 mg PO TID chlorzoxazone 500 mg tablet 1,000 mg PO BID PRN (Reason: sciatica/muscle spasms) lisinopril 20 mg tablet 20 mg PO QAM eszopiclone 3 mg tablet 3 mg PO BEDTIME PRN (Reason: insomnia) metoprolol succinate 50 mg tablet extended release 24 hr 50 mg PO DAILY Ozempic 2 mg/dose (8 mg/3 mL) pen injector 2 mg SUBCUT Q7D Discharge Orders: Discharge ED (Routine); Ordered 01/03/24 Ordered By: Mariela Sales Referrals: Yash Velarde MD [Primary Care Provider] - Patient Instructions: Opioid Safety, Pain Management Activity Restrictions/Additional Instructions: As we discussed please follow-up with your primary care provider later this week for reevaluation if symptoms do not seem to be improving. Coding Level of Care Code ED Victims Advocate Clerk/Specialist for Emerald Castillo
--- NOTE | 2024-01-03 09:56 | XR_ITS ---
WS: [id number] XR sacrum coccyx min 2V [id number] REASON FOR EXAM: trauma FINDINGS: No acute or chronic insufficiency fractures of the sacrum. Coccyx is intact without fracture or dislocation identified. XR/XR sacrum coccyx min 2V [id number] IMPRESSION: No acute abnormality.
--- NOTE | 2024-01-03 09:56 | XR_ITS ---
WS: [id number] XR shoulder RT min 2V* [id number] REASON FOR EXAM: trauma FINDINGS: No acute fracture or dislocation. Widening of the acromial clavicular joint with subchondral sclerosis and irregularity. Multiple bony fragments superior to the acromioclavicular joint. Findings findings most old posttraumatic change. There is significant narrowing of the acromiohumeral interval with superior migration of the humeral head with erosion of the undersurface of the acromion compatible with chronic complete tear of the ro tator cuff tendon. XR/XR shoulder RT min 2V* [id number] IMPRESSION: No acute abnormality. Old traumatic change in the acromioclavicular joint. 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
--- NOTE | 2024-01-03 09:56 | XR_ITS ---
WS: [id number] XR lumbar spine 2-3V* [id number] REASON FOR EXAM: trauma FINDINGS: Mild straightening of the normal lordosis of the lumbar spine. No significant compression deformity or other focal abnormality of the vertebral bodies. Joint spaces L1-2 L5 are intact and relatively well preserved. Moderate anterolisthesis of L4 in relation to L3 and L5 in relation to S1. The lumbar spine appears unchanged compared to an examination of 07/29/2023. Small abdominal aortic aneurysm, 3 cm maximum diameter, unchanged. XR/XR lumbar spine 2-3V* [id number] IMPRESSION: Stable abnormal lumbar spine without acute abnormality.
--- NOTE | 2024-01-03 09:56 | XR_ITS ---
WS: [id number] XR wrist LT min 3V* [id number] REASON FOR EXAM: trauma FINDINGS: The left wrist is unchanged compared to the examination of 08/17/2023. No acute fracture identified. The radiocarpal and intercarpal joint spaces are intact and relatively well preserved. 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 Calcification in the triangular fibrocartilage (CPPD). XR/XR wrist LT min 3V* [id number] IMPRESSION: Stable left wrist without acute abnormality. Arthropathic changes as above.
[2024-01-03 10:50] VITALS: BP 189/164; PULSE 80; O2SAT 97
[2024-01-03 11:28] VITALS: BP 154/132; PULSE 80; RESP 18; TEMP 36.9; O2SAT 96
== END 2024-01-03 11:35 | disposition home or self-care (01) ==
PROVIDERS: Emergency Provider Physician Assistant; PCP Family Medicine Adult Medicine
DX: M54.50 Low back pain, unspecified (principal); S40.011A Contusion of right shoulder, initial encounter; S60.212A Contusion of left wrist, initial encounter; Z79.85 Long-term (current) use of injectable non-insulin antidiabetic drugs; Z87.891 Personal history of nicotine dependence; E11.40 Type 2 diabetes mellitus with diabetic neuropathy, unspecified; E78.5 Hyperlipidemia, unspecified; I10 Essential (primary) hypertension; W01.0XXA Fall on same level from slipping, tripping and stumbling without subsequent striking against object, initial encounter
CPT/HCPCS: 72100; 72220; 73030; 73110; 99284

== ENCOUNTER → 2024-02-01 08:24 | Outpatient (BNVA) | payer MEDICARE, MEDICAID, SELFPAY | PROVIDERS: PCP Family Medicine Adult Medicine; Visit Provider Specialist | DX: M47.12 Other spondylosis with myelopathy, cervical region (principal); R29.90 Unspecified symptoms and signs involving the nervous system; E11.42 Type 2 diabetes mellitus with diabetic polyneuropathy; M48.062 Spinal stenosis, lumbar region with neurogenic claudication; J43.1 Panlobular emphysema; F31.9 Bipolar disorder, unspecified | CPT/HCPCS: 99214 ==

== ENCOUNTER → 2024-02-04 12:52 | Outpatient (BNVA) | payer MEDICARE, MEDICAID, SELFPAY | PROVIDERS: PCP Family Medicine Adult Medicine; Visit Provider Family Medicine | DX: M19.022 Primary osteoarthritis, left elbow (principal); S50.02XA Contusion of left elbow, initial encounter; W19.XXXA Unspecified fall, initial encounter | CPT/HCPCS: 73070 ==

== ENCOUNTER → 2024-02-21 13:48 | Outpatient (BNVA) | payer MEDICARE, MEDICAID, SELFPAY | PROVIDERS: PCP Family Medicine Adult Medicine; Visit Provider Nurse Practitioner | DX: J02.9 Acute pharyngitis, unspecified (principal) | CPT/HCPCS: 87071; 87880 ==

== ENCOUNTER → 2024-03-21 09:15 | Outpatient (BNVA) | payer MEDICARE, MEDICAID, SELFPAY | PROVIDERS: PCP Family Medicine Adult Medicine; Visit Provider Student in an Organized Health Care Education/Training Program | DX: E11.42 Type 2 diabetes mellitus with diabetic polyneuropathy; G56.03 Carpal tunnel syndrome, bilateral upper limbs; G56.23 Lesion of ulnar nerve, bilateral upper limbs | CPT/HCPCS: 99214 ==

== ENCOUNTER → 2024-03-29 10:50 | Outpatient (BNVA) | payer MEDICARE, SELFPAY | PROVIDERS: PCP Family Medicine Adult Medicine; Visit Provider Nurse Practitioner Family | DX: L57.0 Actinic keratosis (principal); H02.61 Xanthelasma of right upper eyelid; H02.64 Xanthelasma of left upper eyelid; L72.0 Epidermal cyst; D22.5 Melanocytic nevi of trunk; L81.4 Other melanin hyperpigmentation; B35.1 Tinea unguium | CPT/HCPCS: 17000; 99213 ==

== ENCOUNTER 2024-04-20 09:55 | Day surgery (SDC) | payer MEDICARE, SELFPAY ==
[2024-04-20] VITALS (8 sets, daily range): BP systolic 130–150; BP diastolic 92–105; PULSE 82–98; RESP 16–20; TEMP 36.2–37; O2SAT 94–99; BMI 34.5
[2024-04-20] MEDS: acetaminophen 1,000 MG/100 ML PIGGYBACK 400 MG IV (10:40)
[2024-04-20] MEDS: sodium chloride 0.9% 1,000 ML 30 ML IV (10:40)
[2024-04-20] MEDS: scopolamine 1.5 Patch 1 PATCH TRANSDERMA (10:42)
--- NOTE | 2024-04-20 10:55 | P.ANESASSM_ITS ---
Pre-Anesthetic Assessment Height/Weight: Height 1.52 m Temp Pulse Resp BP Pulse Ox O2 Del Method 97.9 F 98 16 138/100 98 Room Air 04/20/24 10:27 04/20/24 10:27 04/20/24 10:27 04/20/24 10:42 04/20/24 10:27 04/20/24 10:27 Operation Date: 04/20/24 12:10 Proposed Procedures p Carpal Tunnel Release(Not Applicable) - George Khan DO s Cubital Tunnel Release(Not Applicable) - George Khan DO s Ulnar Nerve Transposition(Not Applicable) - George Khan DO Familial anesthetic complications: Last surgery two LMA's did not seat adequately when placed, requiring conversion to ETT. However, patient has since lost 40 lbs Alph gal allergy Was Beta Estuardo taken within 24 hours: Yes Was Clonidine taken within 24 hours: N/A Last intake: Intake Last Liquid Date 04/19/24 Last Liquid Time 21:30 Last Solid Date 04/19/24 Last Solid Time 21:30 Social Tobacco and No alcohol Exam alert, oriented x 3, clear to auscultation bilaterally and regular rate & rhythm Airway Mallampati: Class III Dentition: chipped Pulmonary Chronic Obstructive Pulmonary Disease and Sleep Apnea Metabolic Diabetes Mellitus Anesthetic Plan ASA status: 3 Anesthesia: General and Regional (specify below) Risk of > 500 ml blood loss (7ml/kg in children): No Medications/Allergies Home Medications Medication Instructions Recorded Confirmed Last Taken Type epinephrine 0.3 mg/0.3 mL 0.3 mg IM Q4H PRN Anaphylaxis 02/18/22 04/19/24 Unknown History injection, auto-injector CPAP mask, tubing, supplies #1 ea 03/02/23 04/14/24 Unknown Rx albuterol sulfate 2.5 mg/3 mL 2.5 mg (3 mL) inhalation Q4H PRN 11/30/23 04/19/24 Unknown Rx (0.083 %) solution for nebulization Shortness Of Breath #90 mL fluticasone propionate 50 2 spray intranasal DAILY PRN 11/30/23 04/20/24 2 Weeks Ago Rx mcg/actuation nasal Allergy Symptoms #16 grams ~04/06/24 spray,suspension tiotropium bromide 2.5 1 puff inhalation DAILY #4 grams 11/30/23 04/20/2424 Rx mcg/actuation mist for inhalation (Spiriva Respimat) eszopiclone 3 mg tablet (Lunesta) 3 mg PO BEDTIME PRN insomnia 01/03/24 04/19/24 04/18/24 History lisinopril 20 mg tablet 20 mg PO QAM 01/03/24 04/20/24 04/19/24 History metoprolol succinate 50 mg 25 mg PO DAILY 01/03/24 04/20/24 04/20/24 08:30 History tablet,extended release 24 hr semaglutide 2 mg/dose (8 mg/3 mL) 2 mg SUBCUT Q7D 01/03/24 04/20/24 04/10/24 History subcutaneous pen injector (Ozempic) gabapentin 600 mg tablet 1,200 mg (2 x 600 mg) PO BID 01/13/24 04/20/24 04/19/24 Rx neuropathy 30 days #120 tabs lidocaine 5 % topical patch See Rx Instructions .Route 02/16/24 04/20/24 04/19/24 Rx .COMPLEX #90 ea cyclobenzaprine 10 mg tablet 10 mg PO TID muscle pain #90 tabs 03/30/24 04/19/24 04/19/24 Rx pantoprazole 40 mg tablet,delayed 40 mg PO DAILY #30 tabs 03/30/24 04/20/24 04/19/24 Rx release chlorzoxazone 500 mg tablet 500 mg PO BID 04/11/24 04/19/24 04/18/24 History famotidine 20 mg tablet 20 mg PO DAILY 04/11/24 04/20/24 04/19/24 History mupirocin 2 % topical ointment 1 applic topical BID 04/11/24 04/20/24 2 Months Ago History ~02/19/24 pravastatin 20 mg tablet 20 mg PO DAILY 04/11/24 04/20/24 04/18/24 History ondansetron 4 mg disintegrating 4 mg PO Q8H PRN nausea and 04/14/24 04/20/24 Unknown Rx tablet vomiting #10 tabs budesonide-formoterol HFA 160 2 puff inhalation BID copd #10.2 04/20/24 Unknown Rx mcg-4.5 mcg/actuation aerosol grams inhaler (Breyna) hydrocodone 7.5 mg-acetaminophen 1 tab PO Q6H PRN pain postop 5 04/20/24 Unknown Rx 325 mg tablet days #20 tabs Allergies Allergy/AdvReac Type Severity Reaction Status Date / Time [place] And Derivatives Allergy Intermediate swelling Verified 04/20/24 10:34 montelukast Allergy Intermediate swelling Verified 04/20/24 10:34 Alpha-Gal Allergy Mild ADR-Gastrointestinal Verified 04/20/24 10:34 (Omxrernoo-Ckahh-1,3-Gala Upset metronidazole Allergy Mild rash Verified 04/20/24 10:34 tramadol Allergy Mild Ears Ring Verified 04/20/24 10:34 and sees black spots aripiprazole AdvReac Intermediate ADR-Headach Verified 04/20/24 10:34 e PFSH Anesthesia Medical History Right shoulder pain Fall at home Left-sided low back pain with sciatica BMI 35.0-35.9,adult Ulnar neuropathy at elbow of left upper extremity Laryngeal stenosis Right carpal tunnel syndrome Diabetes type 2, controlled Tuberculosis Cardiomegaly Elevated brain natriuretic peptide (BNP) level Elevated blood pressure reading Chronic back pain Alpha galactosidase deficiency YUNI (obstructive sleep apnea) Seasonal allergies Anxiety Hyperlipidemia Essential hypertension COPD (chronic obstructive pulmonary disease) Diabetes Neuropathy Bipolar 1 disorder Enlarged liver Arthritis Chronic back pain Vertigo Hypertension High cholesterol Peptic ulcer Surgical History S/P carpal tunnel release right CTS release 10/06/23 Dr. Khan Status post right knee replacement History of History of tonsillectomy History of left knee replacement Status post left hip replacement Family History Grandfather Cancer Maternal-prostate Grandmother Cancer Maternal-unknown Other Bleeding disorder Dementia Diabetes Hyperlipidemia Hypertension Lung disease Psychiatric illness Denies family history of CAD (coronary artery disease) Clotting disorder Chronic kidney disease (CKD) Anesthesia complication Stroke Social History Smoking and tobacco/nicotine status: former use of tobacco/nicotine Alcohol intake: never Substance/Drug Use: current Substance/Drug use frequency: Special occassions/opportunity only Lives independently: Yes Current occupational status: disabled Special colin needs: No Agree to transfusion: Yes Data Anesthesia Cardiac Studies: Echocardiogram 04/08/23
[2024-04-20] MEDS: ketorolac 30 mg/mL INJ IVP (10:58)
--- NOTE | 2024-04-20 11:06 | W.PM.OPSUD ---
Surgery/Procedure H&P Update DATE OF PROCEDURE: April 20, 2024 DATE H&P PERFORMED: 03/21/24 H&P UPDATE INFORMATION: I have reviewed H&P completed within last 30 days, I have examined patient prior to procedure and No changes to prior documentation PREOP DIAGNOSIS: Left carpal tunnel syndrome, left cubital tunnel syndrome PRIMARY INDICATION FOR PROCEDURE: Left carpal tunnel syndrome, left cubital tunnel syndrome PLANNED PROCEDURE: Operation Date: 04/20/24 12:10 Proposed Procedures p Carpal Tunnel Release(Not Applicable) - DO micah To Cubital Tunnel Release(Not Applicable) - DO micah To Ulnar Nerve Transposition(Not Applicable) - George Khan DO
--- NOTE | 2024-04-20 11:16 | ANES.PROC ---
Anesthesia Procedures Procedure/Date: 04/20/24 Nerve Block ^: Nerve Block 1: Main Anesthesia: general anesthesia Time Out Performed: Yes Consent: requested by attending/covering physician, from patient, from other, risks and benefits reviewed and patient agrees to proceed Nerve block location: supraclavicular (R) Anesthesia monitors applied: pulse oximetry, EKG and BP cuff Nerve block position: semi sitting Anesthetic Used: ropivicaine 0.5% (25 cc) and with decadron (4 mg) Ultrasound used to: recognize landmarks, visualize and ID brachial plexus and in supraclavicular region Nerve Stimulator Used?: No Interscalene/Femoral BLK: 4 stimuplex 21 g needle used for position and inplane approach, visualize local anesthetic spread and no vascular puncture identified Injection: neg aspiration of heme Patient Tolerated Procedure: well Complications: none
[2024-04-20] MEDS: ceFAZolin 2,000 MG in sodium chloride 0.9% (plus) 50 ML 100 MG IV (11:25)
[2024-04-20 11:55] LABS: Glucose Point of Care 96 mg/dL (70-110)
[2024-04-20] MEDS: ondansetron 2 mg/ML SDV 2 mL 4 MG IVP (13:14)
--- NOTE | 2024-04-20 13:30 | W.PM.BPON ---
Date of Procedure: 04/20/2024 Surgeon: George Khan DO Shipping & Receiving Lead(s): None Procedure(s) performed: Left carpal tunnel release Left cubital tunnel release revision Left elbow ulnar nerve neurolysis Left elbow ulnar nerve transposition revision Findings of the procedure(s): Patient found to have left carpal tunnel syndrome underwent release as planned without issues or complications. Patient had a previous carpal tunnel surgery reuse the old incision was found to have a previous transposition as well as a result underwent a left cubital tunnel release revision and ulnar nerve transposition revision as well as ulnar nerve neurolysis the procedure went as planned without issues or complications placed in a long-arm posterior splint will get patient seen by our therapist within the next couple days for drain removal and a custom long-arm splint in 90 degrees will keep the elbow at 90 degrees for the next 10 to 14 days we will follow-up in the office in 2 weeks. Patient understands agrees to current plan. All questions answered. Estimated blood loss: 10 mL Specimen(s) removed: None Post-operative diagnosis: Left carpal tunnel syndrome, left recurrent cubital tunnel syndrome
--- NOTE | 2024-04-20 13:31 | P.OP_ITS ---
Operative Report Date of procedure: April 20, 2024 Surgeon: George Khan DO Procedure: Preoperative diagnosis: Left carpal tunnel syndrome Left?cubital tunnel syndrome, recurrent post-op diagnosis:? Left carpal tunnel syndrome and Left?cubital tunnel syndrome recurrent with already transposed ulnar nerve Post-op findings: See operative note Procedure done: Left carpal tunnel release Left cubital tunnel release revision Left elbow ulnar nerve neurolysis Left elbow ulnar nerve transposition revision Surgeon: George Khan DO Estimated blood loss: 10 cc Tourniquet Time: 43 minutes IV fluids: See anesthesia record Complications: None Findings: See operative report narrative Condition: stable Disposition: same day Brief History: Patient is a pleasant 63-year-old female was seen evaluated in the outpatient setting for Left ulnar nerve neuropathy at the elbow and Left carpal tunnel syndrome. Patient had NCS findings consistent with this.? ?On my examination in the office patient findings are consistent with this preoperative diagnosis. Patient did have a previous what appears to be cubital tunnel surgery on the left elbow. We had detailed discussion in office about continued nonoperative intervention versus operative intervention.? Patient understands the risk benefits complications alternatives to surgical and nonsurgical treatment options.? Patient understands the risks include but not limited to make it better, make it worse, infection, permanent injury to nerve, decreased function and sensation to the hand with persistent weakness.? Given these risks patient understands and agrees to proceed with current plan.? Patient elects to proceed with a surgical intervention. All questions answered. Procedure: Patient was seen and evaluated in the preoperative holding area.? The consent that was filled out in office was reviewed with patient. Correct extremity was then marked.? Patient was seen evaluated by the preoperative team as well as anesthesia department.? Once cleared for surgery patient was then taken to the operative suite and transported onto the operative table all bony prominences were well-padded and patient was secured to the table.? Left upper extremity was placed on an armboard.? Patient then underwent anesthesia per the anesthesia department. The Left upper extremity tourniquet was applied. Patient's Left upper extremity was then prepped and draped in standard orthopedic fashion.? This point a final timeout was performed. Patient received appropriate preop antibiotics. Esmarch tourniquet was used to exsanguinate the operative extremity and was insufflated to 250 mmHg.? I started with the carpal tunnel release first.? I made a standard open carpal tunnel release starting with the distal most extent in the palm at the Evans's cardinal line and the incision line was made in line with the fourth ray and ended just distal to the wrist crease.? Sharp scalpel incision was made through skin and subcutaneous tissue I then utilizing self retainer then began to dissect with dissection scissors split longitudinally the palmar fascia.? Next I then utilizing my real estate executive assistant Hussein retractors subsequently utilizing scalpel feathered through the palmaris brevis as well as through the transverse carpal ligament distally.? Once I encountered the floor of the transverse carpal ligament and entered into the carpal tunnel I then switched to dissection scissors.? Carefully released the distal extent of the transverse carpal ligament to the palmar fat.? Care was to protect the recurrent branch and not injured this during this part of the case.? Next I then placed a [place] underneath the transverse carpal ligament proximally to protect the nerve in the carpal tunnel contents.? And then I subsequently under loupe magnification utilize my dissection scissors to release the transverse carpal ligament into the antebrachial fascia under direct visualization with care to keep my scissors with a curved ulnarly away from the palmar cutaneous branch.? The transverse carpal was then completely decompressed proximally and a [place] was then placed both distally and proximally throughout the carpal tunnel and had complete decompression of the nerve.? The nerve did appear to have hourglass shape as it went through the carpal tunnel.? With significant irritation noted around the nerve.? No masses were noted within the contents of the carpal tunnel.? This completed the carpal tunnel release and then I subsequently irrigated the wound bed and placed a wet Ray-Tomas into the incision for later closure. Patient had previous incision over the cubital tunnel used the previous incision extending this slightly more proximally and distally. Standard curvilinear incision was made centering over the ulnar nerve between t he medial epicondyle and olecranon process.? Sharp scalpel excision through skin and subcutaneous tissue was performed.? Once I encountered subcutaneous tissue I then utilized dissection scissors to spread in the path of the [facility] and care was made to protect any nerve branches throughout this case.? I then utilized a scalpel to complete my dissection directly on over to the flexor pronator mass and elevated this fat tissue directly off of the fascia.? Dissected through extensive amount of scarring and immediately encountered distally trying to find the nerve at the FCU fascia and encountered a already transposed ulnar nerve. At this point time patient had significant scar and adhesions throughout the transposed ulnar nerve with significant bands of scar tissue throughout. I subsequently once I identified the nerve distally subsequently utilized Littler dissection scissors to complete release and revision of the left cubital tunnel. This was subsequently released from distal all the way to proximal with blunt finger dissection proximally with no tethering of the nerve at this point. She did already had excessive fascial scarring and no quality fascial tissue for transposition. Patient did have extensive subcutaneous fat. At this point in time once I had completely released and done a revision of the cubital tunnel of the previous transposition and had the nerve completely mobilized and a complete neurolysis was performed. At this point in time given this is already a revision patient did have some excessive subcutaneous fat that I was able to create a tunnel through this and create a small sling of the subcutaneous fat to create a fatty tissue sling to prevent from any subluxation of the ulnar nerve as well as to keep it tethered in the anterior transposition. At this point in time I utilized 3-0 Vicryl suture to secure the fatty tissue subcutaneous sling which was then secured and then I took the elbow through range of motion and had a satisfactory decomp ressed revision ulnar nerve decompression at the elbow as well as revision ulnar nerve transposition. Incisions were then thoroughly irrigated.? Tourniquet was deflated.? Maintained exact hemostasis with bipolar electrocautery.? I did place a cruz drain to prevent hematoma formation. As result the skin was reapproximated with interrupted Vicryl subcutaneous suture 3-0.? I next utilized a running nylon stitch with 3-0 nylon.? Extremity was then cleaned and the incision was then covered with Xeroform 4 x 4's ABD Curlex and soft roll and a?cubital splint was then applied with an Sebas wrap.? Patient was then awakened from anesthesia and taken to PACU in stable condition. Disposition: Patient taken to PACU in stable condition.? Patient given appropriate discharge instructions as well as pain medication.? We will get Patient in with OT hand therapy for splint takedown dressing change and drain pull. Patient will see me in office in 2 weeks.? pt understands? if they has any questions they can contact the office.
--- NOTE | 2024-04-20 14:10 | ANE.PACU2 ---
Inpatient post-anesthesia follow up: Airway intact: Yes Vital signs: Temperature 97.6 F Pulse Rate 82 Respiratory Rate 16 Blood Pressure 130/95 Pulse Oximetry 99 Oxygen Delivery Me thod Room Air Oxygen Flow Rate Fraction of Inspir ed Oxygen Hydration adequate: Yes Nausea and vomiting: No Pain level: 1 Mental status: Baseline
== END 2024-04-20 14:10 | disposition home or self-care (01) ==
PROVIDERS: Visit Provider Student in an Organized Health Care Education/Training Program
PROC: (CPT 64721; principal; 2024-04-20 12:00)
PROC: (CPT 64718; 2024-04-20 12:00)
PROC: (CPT 64718; 2024-04-20 12:00)
DX: G56.02 Carpal tunnel syndrome, left upper limb (principal); G56.22 Lesion of ulnar nerve, left upper limb; J44.9 Chronic obstructive pulmonary disease, unspecified; G47.33 Obstructive sleep apnea (adult) (pediatric); E11.40 Type 2 diabetes mellitus with diabetic neuropathy, unspecified; I10 Essential (primary) hypertension; Z87.11 Personal history of peptic ulcer disease; Z87.891 Personal history of nicotine dependence
CPT/HCPCS: 64718; 64721; 36416; 82962; J0131; J0690; J1100; J1885; J2250; J2405; J2704; J2795; J7030

== ENCOUNTER 2024-04-21 11:30 | Outpatient (CLI) | payer MEDICARE, SELFPAY | END 2024-04-21 11:31 | disposition home or self-care (01) | LOC: SOT 11:31 | PROVIDERS: Visit Provider Student in an Organized Health Care Education/Training Program | DX: Z46.89 Encounter for fitting and adjustment of other specified devices (principal); G56.02 Carpal tunnel syndrome, left upper limb; G56.22 Lesion of ulnar nerve, left upper limb | CPT/HCPCS: 97760; L3763 ==

== ENCOUNTER → 2024-05-02 14:01 | Outpatient (BNVA) | payer MEDICARE, SELFPAY | PROVIDERS: PCP Family Medicine Adult Medicine; Visit Provider Physician Assistant | DX: Z98.890 Other specified postprocedural states (principal) | CPT/HCPCS: 99024 ==

== ENCOUNTER → 2024-05-18 09:07 | Outpatient (BNVA) | payer MEDICARE, SELFPAY | PROVIDERS: PCP Family Medicine Adult Medicine; Visit Provider Physician Assistant | DX: Z98.890 Other specified postprocedural states (principal); M77.02 Medial epicondylitis, left elbow | CPT/HCPCS: 99213 ==

== ENCOUNTER → 2024-06-01 10:02 | Outpatient (BNVA) | payer MEDICARE, SELFPAY | PROVIDERS: PCP Family Medicine Adult Medicine; Visit Provider Podiatrist Foot & Ankle Surgery | DX: E11.42 Type 2 diabetes mellitus with diabetic polyneuropathy (principal); I73.9 Peripheral vascular disease, unspecified; L60.3 Nail dystrophy | CPT/HCPCS: 99213 ==

== ENCOUNTER → 2024-06-15 14:00 | Outpatient (BNVA) | payer MEDICARE, SELFPAY | PROVIDERS: Visit Provider Physician Assistant | DX: Z98.890 Other specified postprocedural states (principal) | CPT/HCPCS: 99024 ==

== ENCOUNTER → 2024-06-22 10:15 | Outpatient (BNVA) | payer MEDICARE, SELFPAY | PROVIDERS: Visit Provider Physician Assistant | DX: M25.511 Pain in right shoulder (principal); M75.41 Impingement syndrome of right shoulder; M19.011 Primary osteoarthritis, right shoulder; R03.0 Elevated blood-pressure reading, without diagnosis of hypertension | CPT/HCPCS: 20610; 73030; 99213; J3301 ==

== ENCOUNTER → 2024-08-01 11:12 | Outpatient (BNVA) | payer MEDICARE, SELFPAY | PROVIDERS: PCP Family Medicine; Visit Provider Podiatrist Foot & Ankle Surgery | DX: E11.42 Type 2 diabetes mellitus with diabetic polyneuropathy (principal); R09.89 Other specified symptoms and signs involving the circulatory and respiratory systems; I73.9 Peripheral vascular disease, unspecified; L60.3 Nail dystrophy | CPT/HCPCS: 99213 ==

== ENCOUNTER → 2024-09-26 09:51 | Outpatient (BNVA) | payer MEDICARE, SELFPAY | PROVIDERS: PCP Family Medicine; Visit Provider Physician Assistant | DX: M75.41 Impingement syndrome of right shoulder (principal); M19.011 Primary osteoarthritis, right shoulder; R03.0 Elevated blood-pressure reading, without diagnosis of hypertension; M65.341 Trigger finger, right ring finger | CPT/HCPCS: 20600; 20610; 99213; J3301; J3490; J9999 ==

== ENCOUNTER 2024-10-03 12:40 | Outpatient (CLI) | payer MEDICARE, SELFPAY ==
--- NOTE | 2024-10-03 13:00 | MR_ITS ---
WS: [id number] MRI RIGHT SHOULDER HISTORY: impingement of right shoulder COMPARISON: Radiograph 06/22/2024 TECHNIQUE: Multiplanar sequences of the shoulder joint are submitted. Severe AC joint arthritis. There is fluid extending to the AC joint and above the AC joint consistent with a Lowell sign. Continuous fluid extending from the circumferential joint effusion through the AC joint superior to the AC joint. Widening of the AC joint with severe degenerative changes involving the distal clavicle with several adjacent osseous fragments. Marked hypertrophic soft tissue formation. Humeral head abuts the undersurface of the acromion. Normal biceps tendon is not identified in the bicipital groove. Subchondral cystic formation in the lesser tuberosity. Complete tear with retraction of the supraspinatus tendon. Tendon is retracted to the medial humeral head. Severe supraspinatus muscle atrophy. There is additional marked atrophy of the subscapularis muscle. Mild infraspinatus atrophy. The teres minor is better preserved. Severe narrowing of the coraco humeral interval. Subscapularis tendon is torn and retracted to the glenoid. Distal infraspinatus tendon is not well visualized and may not be torn. At least a portion of the infraspinatus tendon is intact. Glenohumeral joint narrowing. Osteophytic ridging around the glenoid and the humeral head. Small intra-articular bodies in the joint effusion. Humeral head is high riding and partially subluxed from the glenoid. Degenerative changes involving the labrum. No identifiable superior or inferior labrum. Anterior labrum and posterior labrum with advanced degenerative changes. MR/MR shoulder RT wo con* [id number] IMPRESSION: 1. Severe degenerative changes involving the shoulder and soft tissues. 2. Severe AC joint arthritis with fragmentation of the distal clavicle. 3. Lowell sign. This can be seen with chronic rotator cuff tears with fluid ex tending from the joint space through the AC joint extending superior to the AC joint. 4. Severe atrophy of the supraspinatus muscle with complete tear and retractio n of the supraspinatus tendon. 5. Severe narrowing of the coracohumeral interval with complete tear of the rodriguez praspinatus tendon retracted to the glenoid. 6. Biceps tendon not identified in the bicipital groove. May be subluxed or to rn. 7. Poorly visualized infraspinatus tendon but a least a portion of the tendon appears to be intact. 8. Intra-articular bodies in the shoulder joint effusion. 9. Abnormal superior and posterior labrum. 10. Osteophytosis surrounding the humeral head and glenoid.
== END 2024-10-03 12:41 | disposition home or self-care (01) ==
LOC: RAD 12:42
PROVIDERS: PCP Family Medicine; Visit Provider Physician Assistant
DX: M75.41 Impingement syndrome of right shoulder (principal); M19.011 Primary osteoarthritis, right shoulder; M62.511 Muscle wasting and atrophy, not elsewhere classified, right shoulder; M75.121 Complete rotator cuff tear or rupture of right shoulder, not specified as traumatic; R93.6 Abnormal findings on diagnostic imaging of limbs; M25.711 Osteophyte, right shoulder; M79.89 Other specified soft tissue disorders; R93.7 Abnormal findings on diagnostic imaging of other parts of musculoskeletal system; M67.813 Other specified disorders of tendon, right shoulder
CPT/HCPCS: 73221

== ENCOUNTER 2024-10-10 09:16 | Outpatient (CLI) | payer MEDICARE, SELFPAY ==
--- NOTE | 2024-10-10 09:30 | USR_ITS ---
US/CV ankle brachial index [id number] PROCEDURE INFORMATION: Exam: US Bilateral Noninvasive Physiologic Study of the Lower Extremity Arteries, Limited Exam date and time: 10/10/2024 9:21 AM Age: 63 years old Clinical indication: Other: Decreased pedal pulses; Additional info: Decrease pedal pulses TECHNIQUE: Imaging protocol: Bilateral Limited bilateral noninvasive physiologic studies of lower extremity arteries. Waveforms were obtained and evaluated. Images were documented and archived. Exam is limited. COMPARISON: CT knee RT [facility] [id number] 08/17/2022 6:30 AM FINDINGS/IMPRESSION: The right ankle-brachial index = 0.93-0.96 (within normal limits). The left ankle-brachial index = 1.07-1.1 (within normal limits). If clinical concern persists for peripheral arterial disease and consider CT angiogram of the lower extremities.
== END 2024-10-10 09:17 | disposition home or self-care (01) ==
PROVIDERS: PCP Family Medicine; Visit Provider Podiatrist Foot & Ankle Surgery
DX: R09.89 Other specified symptoms and signs involving the circulatory and respiratory systems (principal)
CPT/HCPCS: 93922

== ENCOUNTER 2024-10-23 09:08 | Outpatient (CLI) | payer MEDICARE, SELFPAY ==
--- NOTE | 2024-10-23 09:13 | CT_ITS ---
WS: [id number] CT NECK WITH CONTRAST HISTORY: CHRONIC PHARYNGITIS TECHNIQUE: Contiguous 2 mm axial images are performed through the neck with intravenous contrast. Sagittal and coronal reformats are also submitted. All CT scans at [facility] use at least one of these dose optimization techniques: automated exposure control; mA and/or kV adjustment per patient size (includes targeted exams where dose is matched to clinical indication); or iterative reconstruction. CONTRAST: CONTRAST: Omnipaque 350; 100 mL IV. DLP: 200.98 mGy.cm COMPARISON: 02/23/2023 Nasopharynx, oropharynx, hypopharynx and larynx are unremarkable. No soft tissue masses or abnormal enhancement. Torus tubarius and fossa of Rosenmuller and parapharyngeal fat are normal. No significant lymphadenopathy is identified. Thyroid gland and salivary glands are normally enhancing with no masses. Degenerative disc disease and spondylosis in the mid to lower cervical spine. Visualized portions of the skull base demonstrate no abnormalities. Orbits and globes are within normal limits. No soft tissue masses. Visualized paranasal sinuses and mastoid air cells are normal. Lung apices are clear. Mild atherosclerosis aortic arch. Mild dilatation of the esophagus above the level of the azra. This is new since 2022. CT/CT neck w con* [id number] IMPRESSION: 1. No neck mass identified. 2. Focal narrowing of the larynx. This may be exacerbated by Valsalva maneuver . No mass identified. Laryngeal stenosis should be considered. Evaluation by di rect visualization should be considered. 3. Dilated patulous esophagus above the level of the azra. This can be noted with reflux disease which may also cause chronic pharyngitis or hoarseness. Sc leroderma also within the differential.
[2024-10-23 09:44] LABS: Blood Urea Nitrogen 8 mg/dL (8-23); Glomerular Filtration Rate 84.8 mL/min (90-130)
[2024-10-23] MEDS: iohexol 350 mg/mL 500 mL Btl (per mL) IV (09:58)
== END 2024-10-23 09:09 | disposition home or self-care (01) ==
PROVIDERS: PCP Family Medicine; Visit Provider Specialist
DX: J31.2 Chronic pharyngitis (principal); R93.89 Abnormal findings on diagnostic imaging of other specified body structures; K22.89 Other specified disease of esophagus; M50.30 Other cervical disc degeneration, unspecified cervical region; M47.892 Other spondylosis, cervical region; I70.0 Atherosclerosis of aorta
CPT/HCPCS: 70491; 82565; 84520

== ENCOUNTER → 2024-12-12 13:01 | Outpatient (BNVA) | payer MEDICARE, SELFPAY | PROVIDERS: PCP Family Medicine; Referring Provider Family Medicine; Visit Provider Nurse Practitioner Family | DX: M48.062 Spinal stenosis, lumbar region with neurogenic claudication (principal); M54.9 Dorsalgia, unspecified | CPT/HCPCS: 99214 ==

== ENCOUNTER 2025-01-24 19:40 | Outpatient (CLI) | payer MEDICARE, SELFPAY | END 2025-01-24 19:41 | disposition home or self-care (01) | LOC: SLEEP 19:41 | PROVIDERS: PCP Family Medicine; Visit Provider Internal Medicine Pulmonary Disease | DX: G47.33 Obstructive sleep apnea (adult) (pediatric) (principal); G47.61 Periodic limb movement disorder | CPT/HCPCS: 95811 ==

== ENCOUNTER → 2025-02-14 11:00 | Outpatient (BNVA) | payer MEDICARE, SELFPAY | PROVIDERS: PCP Family Medicine; Visit Provider Podiatrist Foot & Ankle Surgery | DX: E11.42 Type 2 diabetes mellitus with diabetic polyneuropathy (principal); I73.9 Peripheral vascular disease, unspecified; L60.3 Nail dystrophy | CPT/HCPCS: 11721 ==

== ENCOUNTER 2025-03-05 09:30 | Outpatient (CLI) | payer MEDICARE, SELFPAY ==
--- NOTE | 2025-03-05 09:45 | XR_ITS ---
WS: [id number] Exam: XR wrist LT 2V [id number] Date/Time of Exam: 03/05/2025 9:48 AM Reason For Exam: FALL DLP: Comparison 01/03/2024. No acute fracture. There is calcification of the triangular fibrocartilage. Moderately advanced degenerative change at the articulation of the scaphoid and greater and lesser multangular as well as the CMC joint of the thumb. No soft tissue foreign bodies are noted. XR/XR wrist LT 2V [id number] IMPRESSION: 1. Moderate degenerative changes of the wrist as detailed above. No fracture. C hondrocalcinosis.
--- NOTE | 2025-03-05 09:45 | XR_ITS ---
WS: [email or web address] Exam: XR shoulder LT 1V [id number] Date/Time of Exam: 03/05/2025 9:48 AM Reason For Exam: FALL DLP: No acute fracture. Moderate degenerative change of the glenohumeral joint. Low- grade AC joint separation with degenerative changes. Normal soft tissues. XR/XR shoulder LT 1V [id number] IMPRESSION: 1. No acute fracture. 2. AC joint separation. 3. Moderate DJD of the glenohumeral joint.
--- NOTE | 2025-03-05 09:45 | XR_ITS ---
WS: [id number] Exam: XR hip LT 2-3V wo/w pel* [id number] Date/Time of Exam: 03/05/2025 9:48 AM Reason For Exam: FALL A total hip prosthesis is in place in satisfactory position. No loosening or hardware complication noted. Normal soft tissues. Neurostimulator electrode is seen in the LEFT pelvic region XR/XR hip LT 2-3V wo/w pel* [id number] IMPRESSION: 1. Stable appearing LEFT total hip replacement.
== END 2025-03-05 09:31 | disposition home or self-care (01) ==
PROVIDERS: PCP Family Medicine; Visit Provider Nurse Practitioner Family
DX: Z04.3 Encounter for examination and observation following other accident (principal); M19.032 Primary osteoarthritis, left wrist; M18.12 Unilateral primary osteoarthritis of first carpometacarpal joint, left hand; M19.012 Primary osteoarthritis, left shoulder; S43.102A Unspecified dislocation of left acromioclavicular joint, initial encounter; W19.XXXA Unspecified fall, initial encounter; Z96.642 Presence of left artificial hip joint
CPT/HCPCS: 73020; 73100; 73502

== ENCOUNTER → 2025-03-06 14:44 | Outpatient (BNVA) | payer MEDICARE, SELFPAY | PROVIDERS: PCP Family Medicine; Visit Provider Nurse Practitioner Family | DX: M79.10 Myalgia, unspecified site (principal); M48.062 Spinal stenosis, lumbar region with neurogenic claudication; G89.29 Other chronic pain | CPT/HCPCS: 20553; 99214; J1010; J3490 ==

== ENCOUNTER → 2025-03-21 15:08 | Outpatient (BNVA) | payer MEDICARE, SELFPAY | PROVIDERS: PCP Family Medicine; Visit Provider Student in an Organized Health Care Education/Training Program | DX: M19.012 Primary osteoarthritis, left shoulder (principal) | CPT/HCPCS: 99213 ==

== ENCOUNTER → 2025-03-29 11:19 | Outpatient (BNVA) | payer MEDICARE, SELFPAY | PROVIDERS: PCP Family Medicine; Visit Provider Nurse Practitioner Family | DX: B35.1 Tinea unguium (principal); D69.2 Other nonthrombocytopenic purpura; L73.8 Other specified follicular disorders; H02.61 Xanthelasma of right upper eyelid; H02.64 Xanthelasma of left upper eyelid; D18.01 Hemangioma of skin and subcutaneous tissue; L81.4 Other melanin hyperpigmentation; L57.8 Other skin changes due to chronic exposure to nonionizing radiation | CPT/HCPCS: 99213 ==

== ENCOUNTER → 2025-03-30 10:33 | Outpatient (BNVA) | payer MEDICARE, SELFPAY | PROVIDERS: PCP Family Medicine; Visit Provider Student in an Organized Health Care Education/Training Program | DX: M19.012 Primary osteoarthritis, left shoulder (principal); Z71.89 Other specified counseling | CPT/HCPCS: 20610; 77002; J3301; J9999 ==

== ENCOUNTER 2025-05-24 14:51 | Emergency (ER) | payer MEDICARE, SELFPAY ==
[2025-05-24 14:57] VITALS: BP 101/70; PULSE 109; TEMP 36.7; O2SAT 94
[2025-05-24 15:49] LABS: Hematocrit 35.5 % (36-47); Hemoglobin 11.50 g/dL (11.27-16.99); Mean Corpuscular HGB Conc 32.4 g/dL (30-55); Mean Corpuscular Hemoglobin 29.3 pg (27-33); Mean Corpuscular Volume 90.3 fl (85-98); Nucleated Red Blood Cells % 0 %; Platelet Count 546 10^3/cmm (157-399); Red Blood Count 3.93 10^6/uL (3.85-5.65); White Blood Count 12.71 10^3/uL (3.29-11.43)
[2025-05-24 15:58] VITALS: O2SAT 94
[2025-05-24 16:08] LABS: Alanine Aminotransferase < 5 U/L (0-33); Albumin Level 3.5 g/dL (3.5-5.2); Alkaline Phosphatase 118 U/L (35-105); Anion Gap 17.7 (5-19); Aspartate Amino Transferase 8 U/L (0-32); Blood Urea Nitrogen 9 mg/dL (8-23); Calcium 9.5 mg/dL (8.5-10.5); Carbon Dioxide 25 mmol/L (22-29); Chloride 98 mmol/L (98-107); Creatinine Clr Calc Pharmacy 60.0104; Globulin 3.8 g/dL (1.3-4.6); Glucose 112 mg/dL (65-115); Osmolality Calculated 283 mOsm/kg (285-295); Potassium 3.7 mmol/L (3.5-5.1); Sodium 137 mmol/L (136-145); Total Protein 7.3 g/dL (6.6-8.7)
--- NOTE | 2025-05-24 16:18 | XR_ITS ---
WS: [email or web address] XR elbow LT min 3V* [id number] REASON FOR EXAM: redness, cellulitis FINDINGS: No fracture or focal bone lesion. No periosteal reaction or bone erosion. Significant osteoarthritis in the ulnohumeral and radiocapitellar joints with multiple loose bodies. There is significant increase soft tissue thickening and density posterior to the elbow joint. No radiopaque foreign body or focal mass. XR/XR elbow LT min 3V* [id number] IMPRESSION: Severe osteoarthritis of the glenohumeral joint without evidence of septic arth ritis or osteomyelitis. Presumed significant soft tissue inflammatory changes p osterior to the elbow joint.
--- NOTE | 2025-05-24 16:18 | XR_ITS ---
WS: [id number] XR hand LT min 3V* [id number] REASON FOR EXAM: redness FINDINGS: Imaging degraded by the presence of the the pulse oximeter and cable. No fracture or focal bone lesion. No periosteal reaction or bone erosion. Moderate osteoarthritis in the joints of the thumb predominantly at the base. No radiopaque soft tissue foreign body. XR/XR hand LT min 3V* [id number] IMPRESSION: Osteoarthritis of the thumb without other acute bone or joint abnormality.
--- NOTE | 2025-05-24 16:22 | W.ED.RECABL ---
HPI - Recheck/Abnormal Lab/Rx General: Chief Complaint: Recheck/Abnormal Lab/Rx Stated Complaint: Swollen LT ellbow/thumb Time Seen by Provider: 05/24/25 16:01 History of Present Illness: Patient is a 64-year-old female, DM, HTN, presents to the emergency room due to left elbow redness pain, left redness and pain. This started approximately 2 days ago out of the blue for patient. There is association of pain with movement, warmth. Patient does not have fever. She went to her primary care physician yesterday, and noted WBC was higher, and was asked to come back today. Unknown what these results are. Today, WBC is 12.7. CRP is impressively at 265. Denies previous history of gout Related Data Home Medications ?Medication ?Instructions ?Recorded ?Confirmed eszopiclone 3 mg tablet (Lunesta) 3 mg PO BEDTIME PRN insomnia 01/03/24 03/30/25 lisinopril 20 mg tablet 20 mg PO QAM 01/03/24 03/30/25 metoprolol succinate 50 mg 25 mg PO DAILY 01/03/24 03/30/25 tablet,extended release 24 hr famotidine 20 mg tablet 20 mg PO DAILY 04/11/24 03/30/25 mupirocin 2 % topical ointment 1 applic topical BID 04/11/24 03/30/25 pravastatin 20 mg tablet 20 mg PO DAILY 04/11/24 03/30/25 hydrocodone 5 mg-acetaminophen 325 tab PO 03/06/25 03/30/25 mg tablet paroxetine HCl 10 mg tablet mg PO 03/06/25 03/30/25 tirzepatide (weight loss) 5 mg/0.5 mg SUBCUT 03/06/25 03/30/25 mL subcutaneous pen injector (Zepbound) Previous Rx's ?Medication ?Instructions ?Recorded CPAP mask, tubing, supplies #1 ea 03/02/23 fluticasone propionate 50 2 spray intranasal DAILY PRN 11/30/23 mcg/actuation nasal Allergy Symptoms #16 grams spray,suspension gabapentin 600 mg tablet 1,200 mg (2 x 600 mg) PO BID 01/13/24 neuropathy 30 days #120 tabs lidocaine 5 % topical patch See Rx Instructions .Route 02/16/24 .COMPLEX #90 ea ondansetron 4 mg disintegrating 4 mg PO Q8H PRN nausea and 04/14/24 tablet vomiting #10 tabs budesonide-formoterol HFA 160 2 puff inhalation BID copd #10.2 04/20/24 mcg-4.5 mcg/actuation aerosol grams inhaler (Breyna) cyclobenzaprine 10 mg tablet 10 mg PO TID muscle pain #90 tabs 05/30/24 tiotropium bromide 2.5 1 puff inhalation DAILY #4 grams 07/18/24 mcg/actuation mist for inhalation (Spiriva Respimat) pantoprazole 40 mg tablet,delayed 40 mg PO DAILY #30 tabs 12/21/24 release albuterol sulfate 2.5 mg/3 mL See Rx Instructions .Route 01/29/25 (0.083 %) solution for nebulization .COMPLEX #90 mL amoxicillin 875 mg-potassium 1 tab PO Q12H #20 tabs 05/24/25 clavulanate 125 mg tablet Allergies Allergy/AdvReac Type Severity Reaction Status Date / Time [place] And Derivatives Allergy Intermediate swelling Verified 05/24/25 15:03 montelukast Allergy Intermediate swelling Verified 05/24/25 15:03 Alpha-Gal Allergy Mild ADR-Gastrointestinal Verified 05/24/25 15:03 (Parqywiel-Qcntk-4,3-Gala Upset metronidazole Allergy Mild rash Verified 05/24/25 15:03 aripiprazole AdvReac Intermediate ADR-Headach Verified 05/24/25 15:03 e tramadol AdvReac Mild Ears Ring Verified 05/24/25 15:03 and sees black spots Review of Systems General: Reports: 10 or more systems reviewed and unremarkable except in HPI and below Const: Denies: fever(s), chills, body aches or malaise Eyes: Denies: change in vision or blurry vision ENMT: Denies: throat pain or mouth pain Card: Denies: chest pain or palpitations Resp: Denies: dyspnea or non-productive cough GI: Denies: abdominal pain, nausea or vomiting : Denies: flank pain or difficulty voiding Musc: Reports: extremity pain, joint pain, joint swelling, joint redness and joint warmth; Denies: neck pain or back pain Skin/Breast: Denies: rash or pruritus Neuro: Denies: headache(s) or numbness in extremities Psych: Denies: anxiety or depression [facility] ED PFS: Medical History (Updated 05/24/25 @ 17:38 by BORIS Agee) Right shoulder pain Fall at home Left-sided low back pain with sciatica BMI 35.0-35.9,adult Ulnar neuropathy at elbow of left upper extremity Laryngeal stenosis Right carpal tunnel syndrome Diabetes type 2, controlled Tuberculosis Cardiomegaly Elevated brain natriuretic peptide (BNP) level Elevated blood pressure reading Chronic back pain Alpha galactosidase deficiency YUNI (obstructive sleep apnea) Seasonal allergies Anxiety Hyperlipidemia Essential hypertension COPD (chronic obstructive pulmonary disease) Diabetes Neuropathy Bipolar 1 disorder Enlarged liver Arthritis Chronic back pain Vertigo Hypertension High cholesterol Peptic ulcer Surgical History S/P carpal tunnel release right CTS release 10/06/23 Dr. Khan Status post right knee replacement History of History of tonsillectomy History of left knee replacement Status post left hip replacement Family History Grandfather Cancer Maternal-prostate Grandmother Cancer Maternal-unknown Other Bleeding disorder Dementia Diabetes Hyperlipidemia Hypertension Lung disease Psychiatric illness Denies family history of CAD (coronary artery disease) Clotting disorder Chronic kidney disease (CKD) Anesthesia complication Stroke Social History Smoking and tobacco/nicotine status: former use of tobacco/nicotine Alcohol intake: never Substance/Drug Use: current Substance/Drug use frequency: Special occassions/opportunity only Lives independently: Yes Current occupational status: disabled Special colin needs: No Agree to transfusion: Yes Physical Exam Const: COMMON NORMALS: no acute distress, patient oriented x3 and healthy appearing GENERAL APPEARANCE: cooperative and comfortable HENMT: COMMON NORMALS: normocephalic, atraumatic, external ears normal, EAC's normal, Normal external nose present and moist oral mucous membranes HEAD & SCALP: normal to inspection, normocephalic and atraumatic NOSE: Normal external nose present EXTERNAL EAR: Yes external ears normal EXTERNAL AUDITORY CANAL: EAC's normal Resp: COMMON NORMALS: normal respiratory effort, No use of accessory muscles and clear to auscultation bilaterally EFFORT & INSPECTION: Yes able to speak in complete sentences, Yes symmetric chest movement, No Actively coughing and No audible wheezes AUSCULTATION: clear to auscultation bilaterally Cardio: COMMON NORMALS: regular rate and regular rhythm RATE: regular rate RHYTHM: regular rhythm GI: COMMON NORMALS: Normal to inspection, nondistended, normoactive bowel sounds present and Soft to palpation INSPECTION: Yes normal to inspection AUSCULTATION: Yes normoactive bowel sounds PALPATION: Yes Soft to palpation, No Firmness to palpation present (GI), No Tenderness to palpation present (GI), No Guarding due to palpation present (GI), No Rigid due to palpation and No Rebound tenderness present Extremity: COMMON NORMALS: full ROM and capillary refill normal NARRATIVE EXTREMITY EXAM: Redness left elbow, warmth directly on elbow laterally, tenderness present, range of motion is intact. Left proximal thumb redness, tenderness, no edema, range of motion intact. Neuro: COMMON NORMALS: patient oriented x3, moves all extremities and gait normal Psych: COMMON NORMALS: speech normal SPEECH: Yes normal speech Course Vital Signs: Vital signs: Vital Signs Temperature 98.0 F 05/24/25 14:57 Pulse Rate 98 05/24/25 18:56 Blood Pressure 125/88 05/24/25 18:56 Pulse Oximetry 94 05/24/25 18:56 Oxygen Delivery Me thod Room Air 05/24/25 18:55 MDM - Recheck/Abnormal Lab/Rx Medical Decision Making Patient is a 64-year-old female DM, HTN, presents with left elbow redness, warmth, left thumb redness and warmth. CRP is quite elevated, as well as ESR. Patient does not have a mechanism of injury. Severe osteoarthritis is noted without evidence of osteomyelitis. Patient has not yet failed outpatient antibiotics. Initially, is important to place her on outpatient antibiotics. I have received blood cultures. Patient does not have history of MRSA as per microbiology in her chart. I will however instead of utilizing Keflex as first-line, moved to Augmentin. I have dosed this for 10 days, however expect to extend this per primary. If patient has worsening redness, fevers, worsening range of motion, I have advised her to return to the ED for evaluation, and possible concern for admission at that juncture. She did receive IV vancomycin and IV fluids here. Her platelets are slightly elevated, which I believe the thrombocytosis is secondary to mild hypovolemia. Patient will be advised to hold her lisinopril and metoprolol if blood pressure is less than 115 systolic. Lab Data 05/24/25 15:44 05/24/25 15:44 Radiology Impressions Elbow X-Ray 05/24/25 16:18 IMPRESSION: Severe osteoarthritis of the glenohumeral joint without evidence of septic arthritis or osteomyelitis. Presumed significant soft tissue inflammatory changes posterior to the elbow joint. Hand X-Ray 05/24/25 16:18 IMPRESSION: Osteoarthritis of the thumb without other acute bone or joint abnormality. Laboratory Results WBC 12.71 10^3/uL (3.29-11.43) H 05/24/25 15:44 RBC 3.93 10^6/uL (3.85-5.65) 05/24/25 15:44 Hgb 11.50 g/dL (11.27-16.99) 05/24/25 15:44 Hct 35.5 % (36-47) L 05/24/25 15:44 MCV 90.3 fl (85-98) 05/24/25 15:44 MCH 29.3 pg (27-33) 05/24/25 15:44 MCHC 32.4 g/dL (30-55) 05/24/25 15:44 RDW 13.3 % (12.1-15.1) 05/24/25 15:44 Plt Count 546 10^3/cmm (157-399) H 05/24/25 15:44 MPV 8.9 fL (7.4-10.4) 05/24/25 15:44 Neut % (Auto) 70.2 % 05/24/25 15:44 Lymph % (Auto) 18.8 % 05/24/25 15:44 [place] % (Auto) 9.6 % 05/24/25 15:44 Eos % (Auto) 0.3 % 05/24/25 15:44 Baso % (Auto) 0.7 % 05/24/25 15:44 Neut # (Auto) 8.92 10^3/uL (1.8-7.7) H 05/24/25 15:44 Lymph # (Auto) 2.4 10^3/uL (0.8-4.8) 05/24/25 15:44 [place] # (Auto) 1.2 10^3/uL (0.2-0.9) H 05/24/25 15:44 Eos # (Auto) 0.0 10^3/uL (0.0-0.8) 05/24/25 15:44 Baso # (Auto) 0.1 10^3/uL (0.0-0.1) 05/24/25 15:44 Nucleated RBC % (auto) 0 % 05/24/25 15:44 Nucleated RBCs # 0.0 /100WBC 05/24/25 15:44 ESR 63 mm/hr (0-15) H 05/24/25 15:44 Sodium 137 mmol/L (136-145) 05/24/25 15:44 Potassium 3.7 mmol/L (3.5-5.1) 05/24/25 15:44 Chloride 98 mmol/L (98-107) 05/24/25 15:44 Carbon Dioxide 25 mmol/L (22-29) 05/24/25 15:44 Anion Gap 17.7 (5-19) 05/24/25 15:44 BUN 9 mg/dL (8-23) 05/24/25 15:44 Creatinine 0.9 mg/dL (0.5-0.9) 05/24/25 15:44 GFR Calculation 63.2 mL/min (90-130) L 05/24/25 15:44 Glucose 112 mg/dL (65-115) 05/24/25 15:44 Calculated Osmolality 283 mOsm/kg (285-295) L 05/24/25 15:44 Uric Acid 4.1 mg/dL (2.4-5.7) 05/24/25 17:00 Calcium 9.5 mg/dL (8.5-10.5) 05/24/25 15:44 Total Bilirubin 0.5 mg/dL (0.15-1.2) 05/24/25 15:44 AST 8 U/L (0-32) 05/24/25 15:44 ALT < 5 U/L (0-33) 05/24/25 15:44 Alkaline Phosphatase 118 U/L (35-105) H 05/24/25 15:44 C-Reactive Protein 265.4 mg/L (0.0-4.9) H 05/24/25 15:44 Total Protein 7.3 g/dL (6.6-8.7) 05/24/25 15:44 Albumin 3.5 g/dL (3.5-5.2) 05/24/25 15:44 Globulin 3.8 g/dL (1.3-4.6) 05/24/25 15:44 Urine Color [place] (Yellow) A 05/24/25 17:15 Urine Appearance Cloudy (CLEAR) A 05/24/25 17:15 Urine pH 5.5 (5-7) 05/24/25 17:15 Ur Specific [place] 1.029 (1.005-1.030) 05/24/25 17:15 Urine Protein 2+ (Negative) A 05/24/25 17:15 Urine Glucose (UA) Negative (Normal) 05/24/25 17:15 Urine Ketones 1+ (Negative) H 05/24/25 17:15 Urine Blood Negative (Negative) 05/24/25 17:15 Urine Nitrate Negative (Negative) 05/24/25 17:15 Urine Bilirubin 1+ (Negative) H 05/24/25 17:15 Urine Urobilinogen 2.0 mg/dL (Negative) H 05/24/25 17:15 Ur Leukocyte Esterase 2+ (Negative) A 05/24/25 17:15 Urine RBC 0-4 /hpf (0-2) H 05/24/25 17:15 Urine WBC 21-50 /hpf (0-5) H 05/24/25 17:15 Ur Squamous Epith Cells 21-50 /hpf (0-5) H 05/24/25 17:15 Amorphous Sediment Not Reportable 05/24/25 17:15 Urine Bacteria 2+ /hpf (NONE) H 05/24/25 17:15 All radiology interpretation(s) finalized by discharge ED provider radiology interpretation(s): no fx/om Discharge Plan Discharge Patient Disposition: Home Clinical Impression: Cellulitis of left elbow, Cellulitis of left thumb Condition: Stable Prescriptions: New amoxicillin-pot clavulanate 875-125 mg tablet 1 tab PO Q12H Qty: 20 0RF No Action paroxetine HCl 10 mg tablet PO hydrocodone-acetaminophen 5-325 mg tablet PO Zepbound 5 mg/0.5 mL pen injector SUBCUT (DME) CPAP mask, tubing, supplies See Rx Instructions .ROUTE .MEDSUPPLY Qty: 1 1RF Rx Instructions: As directed gabapentin 600 mg tablet 1,200 mg PO BID 30 Days Qty: 120 1RF ondansetron 4 mg tablet,disintegrating 4 mg PO Q8H PRN (Reason: nausea and vomiting) Qty: 10 0RF fluticasone propionate 50 mcg/actuation spray,suspension 2 spray intranasal DAILY PRN (Reason: Allergy Symptoms) Qty: 16 3RF Rx Instructions: administer into each nostril lidocaine 5 % adhesive patch,medicated See Rx Instructions .ROUTE .COMPLEX Qty: 90 4RF Dose Instruction: APPLY 1-3 PATCHES TO AFFECTED AREA EVERY 12 HOURS. Rx Instructions: APPLY 1-3 PATCHES TO AFFECTED AREA EVERY 12 HOURS. famotidine 20 mg tablet 20 mg PO DAILY pravastatin 20 mg Tablet 20 mg PO DAILY mupirocin 2 % Ointment 1 applic TOPICAL BID budesonide-formoterol [Breyna] 160-4.5 mcg/actuation HFA aerosol inhaler 2 puff inhalation BID Qty: 10.2 3RF cyclobenzaprine 10 mg tablet 10 mg PO TID Qty: 90 1RF Spiriva Respimat 2.5 mcg/actuation mist 1 puff inhalation DAILY Qty: 4 3RF pantoprazole 40 mg tablet,delayed release (DR/EC) 40 mg PO DAILY Qty: 30 1RF albuterol sulfate 2.5 mg /3 mL (0.083 %) solution for nebulization See Rx Instructions .ROUTE .COMPLEX Qty: 90 0RF Dose Instruction: USE 1 VIAL IN NEBULIZER EVERY 4 HOURS NEEDED FOR SHORTNESS OF BREATH Rx Instructions: USE 1 VIAL IN NEBULIZER EVERY 4 HOURS NEEDED FOR SHORTNESS OF BREATH lisinopril 20 mg tablet 20 mg PO QAM eszopiclone [Lunesta] 3 mg tablet 3 mg PO BEDTIME PRN (Reason: insomnia) metoprolol succinate 50 mg tablet extended release 24 hr 25 mg PO DAILY Discharge Orders: Discharge ED (Routine); Ordered 05/24/25 Ordered By: Ginny Knox Referrals: Jeremías Shultz [Primary Care Provider, Family Practice] Discharge Diet: Diabetic Patient Instructions: Cellulitis (ED), Patient Portal & Olga Instructions Activity Restrictions/Additional Instructions: - Medication at the pharmacy at [facility]: Augmentin 875 mg. Generic is amoxicillin/clavulanate. You need to take this with food twice daily. Since you are on an antibiotic, obtain a probiotic to take daily, or eat active culture yogurt. - Call your doctor in the morning for a follow-up for early next week. There is a good chance she will need your antibiotic coverage extended. - You did not have any notable concern for infection in the bone at this time, however severe osteoarthritis is present. Additional concerns would be an infection in the joint. I would like you to follow-up with your doctor to see if you need to be referred to orthopedist. Make sure your antibiotics are priority. If you do have worsening redness, worsening warmth, redness outside of the area you do now, please return to the ED. -Hold your blood pressure medication: Take them separately at this time, hold your blood pressure if when you take it it is less than 115 on the top number. When and improves to greater than that, take one of them, and then wait and repeat the process. - As well as above: If you have fever greater than 100.4 ?F. - Pending here is your urine analysis and uric acid Thank you for choosing [facility] for your healthcare needs today. You have been screened and evaluated and felt safe for discharge. Health conditions do change or evolve sometimes and as such it is important that you follow up with your Primary Doctor to be re checked, 3-5 days is a general good time frame for follow up. You are always welcome to return to the ED for re assessment if your symptoms are worsening or you have new concerns Print Language: Kazakh Coding Level of Care Code ED Regulatory Affairs Manager for Emerald Castillo
[2025-05-24 16:41] VITALS: PULSE 100; O2SAT 92
[2025-05-24 17:31] LABS: Glucose Urine UA Negative (Normal); Nitrate Urine Negative (Negative); Specific Gravity, Urine 1.029 (1.005-1.030)
[2025-05-24 17:33] LABS: Add Urine Microscopic? YES; Universal Test for UA Present (0)
[2025-05-24 17:43] LABS: Uric Acid 4.1 mg/dL (2.4-5.7)
[2025-05-24 17:49] LABS: UA Manual Slide Review YES
[2025-05-24 18:08] VITALS: BP 101/67; PULSE 91; O2SAT 97
[2025-05-24 18:55] VITALS: BP 125/88; PULSE 98; O2SAT 97
[2025-05-24 18:56] VITALS: BP 125/88; PULSE 98; O2SAT 94
== END 2025-05-24 19:12 | disposition home or self-care (01) ==
PROVIDERS: Emergency Medicine; Emergency Provider Physician Assistant; PCP Family Medicine
DX: L03.114 Cellulitis of left upper limb (principal); L03.012 Cellulitis of left finger; Z87.891 Personal history of nicotine dependence; E78.5 Hyperlipidemia, unspecified; J44.9 Chronic obstructive pulmonary disease, unspecified; I10 Essential (primary) hypertension; E11.40 Type 2 diabetes mellitus with diabetic neuropathy, unspecified
CPT/HCPCS: 36415; 73080; 73130; 80053; 81001; 84550; 85025; 85651; 86140; 87040; 99284; J3373; J7120

== ENCOUNTER → 2025-05-28 11:05 | Outpatient (BNVA) | payer MEDICARE, SELFPAY | PROVIDERS: PCP Family Medicine; Visit Provider Podiatrist Foot & Ankle Surgery | DX: E11.42 Type 2 diabetes mellitus with diabetic polyneuropathy (principal); L60.3 Nail dystrophy; L60.8 Other nail disorders; I73.9 Peripheral vascular disease, unspecified | CPT/HCPCS: 11721 ==